=== PATIENT | male | born 1935 | race Caucasian/White ===

== ENCOUNTER 2016-09-30 15:58 | Emergency (ER) | payer OTHER ==
[2016-09-30 16:05] VITALS: TEMP 98.2
[2016-09-30] MEDS ORDERED: ONDANSETRON 4 MG/2 ML VIAL ONE (16:29)
[2016-09-30] MEDS ORDERED: HYDROmorphONE/DILAUDID 1 MG/ML SYR ONE (16:29)
--- NOTE | 2016-09-30 16:32 | EDPHY ---
HPI/HX/ROS/PE/MDM Narrative: CHIEF COMPLAINT: Right flank pain. HISTORY OF PRESENT ILLNESS: The patient is an 81-year-old male presenting with acute right flank pain. The patient woke up this morning with a dull back ache. He took a nap around 1:30 p.m. and continued to notice the pain. His pain has progressively worsened throughout the day. It is now severe and radiates from his right flank into his testicles. No fever, chills, chest pain, shortness of breath, palpitations, vomiting, diarrhea, urinary complaints, headache, or lightheadedness. REVIEW OF SYSTEMS: Aside from elements discussed in the HPI, a comprehensive 10-point review of systems was reviewed and is negative. PAST MEDICAL HISTORY: Hypertension, Hyperlipidemia, Bilateral endarterectomy, Left knee replacement. SOCIAL HISTORY: . Lives at home with his . VITAL SIGNS: Reviewed by me GENERAL: Elderly male that appears uncomfortable. HEENT: Atraumatic. Eyes: No icterus, no injection. Mouth: dry mucous membranes. No erythema or lesions. Neck: supple with no adenopathy. LUNGS: Lungs are clear anteriorly, no wheezes, rhonchi or rales. CARDIAC: Regular rate and rhythm, no rubs, murmurs or gallops. ABDOMEN: Tenderness right mid quadrant. Pain in right flank. BACK: No CVA tenderness. EXTREMITIES: No trauma. No edema. Range of motion is normal throughout. NEURO: Alert and oriented, grossly nonfocal. SKIN: Warm and dry, no rash. PSYCHIATRIC: Normal mentation, no agitation. Portions of this note were transcribed by a medical device engineer. I personally performed a history, physical exam, medical decision making, and confirmed accuracy of information the transcribed note. ED Course: The patient is an elderly male who appears uncomfortable. He developed right flank pain this morning that has progressively worsened throughout the day. His pain is now severe and radiates into his testicles. The patient is allergic to Ibuprofen, plan for IV Dilaudid and Zofran to treat pain and nausea. I ordered BMP, CBC, and UA. IV was established, the patient received 1mg Dilaudid IV, 4mg Zofran, and 2L normal saline. 5:30 p.m.: The patient's pain is getting worse, per nurse. I ordered an additional 1mg Dilaudid IV. 1744: CT abdomen/pelvis obtained. Results were called to me by the radiologist. Results: 2.7 mm kidney stone at level L5. Dense coronary artery calcifications. Please see the imaging section for full radiology report. I discussed findings with the patient. He continues to have pain. I ordered 10mg Flexeril and 0.4 Flomax. 1850: I reevaluated the patient, he is feeling slightly improved. We will continue to monitor him. 1950: The patient was able to urinate after 3L of fluids. UA is positive for infection. Plan to treat with Keflex. MDM: Differential diagnosis of the patient's flank pain was considered including but not limited to musculoskeletal causes, kidney stone, pyelonephritis, shingles, and intra-abdominal causes such as diverticulitis and appendicitis. - Data Points Laboratory Results: Laboratory Results 09/30/16 16:27 09/30/16 16:27 Medications Given: Discontinued Medications Cephalexin HCl (Keflex) 500 mg PO EDNOW ONE PRN Reason: Protocol Stop: 09/30/16 20:45 Last Admin: 09/30/16 20:55 Dose: 500 mg Cyclobenzaprine HCl (Flexeril) 10 mg PO EDNOW ONE Stop: 09/30/16 18:10 Last Admin: 09/30/16 18:26 Dose: 10 mg Hydromorphone HCl (Dilaudid) 1 mg IVP ONCE ONE Stop: 09/30/16 16:36 Last Admin: 09/30/16 16:36 Dose: 1 mg Hydromorphone HCl (Dilaudid) 1 mg IVP ONCE ONE Stop: 09/30/16 17:37 Last Admin: 09/30/16 17:36 Dose: 1 mg Sodium Chloride (Ns) 1,000 mls @ 0 mls/hr IV ONCE ONE PRN Reason: Wide Open Stop: 09/30/16 16:36 Last Admin: 09/30/16 16:36 Dose: 1,000 mls Sodium Chloride (Ns) 1,000 mls @ 0 mls/hr IV ONCE ONE PRN Reason: Wide Open Stop: 09/30/16 16:38 Last Admin: 09/30/16 17:15 Dose: 1,000 mls Sodium Chloride (Ns) 1,000 mls @ 0 mls/hr IV ONCE ONE PRN Reason: Wide Open Stop: 09/30/16 18:10 Last Admin: 09/30/16 18:22 Dose: 1,000 mls Ondansetron HCl (Zofran) 4 mg IVP EDNOW ONE Stop: 09/30/16 16:36 Last Admin: 09/30/16 16:36 Dose: 4 mg Tamsulosin HCl (Flomax) 0.4 mg PO EDNOW ONE Stop: 09/30/16 18:04 Last Admin: 09/30/16 18:26 Dose: 0.4 mg General Time Seen by Provider: 09/30/16 16:19 Initial Vital Signs: Initial Vital Signs Temperature (C) 36.8 C 09/30/16 16:03 Heart Rate 52 L 09/30/16 16:03 Respiratory Rate 18 09/30/16 16:03 Blood Pressure 171/69 H 09/30/16 16:03 O2 Sat (%) 94 09/30/16 16:03 O2 Delivery Mode Room Air O2 (L/minute) 3 Allergies/Adverse Reactions: ibuprofen Allergy (Mild, Verified 09/30/16 16:02) Other-Enter Comments Home Medications: Medication Instructions Recorded Finasteride [Proscar] 5 mg PO DAILY10 11/23/12 Gluc/Karl-MSM#1/C/Jigar/Cabrera/Bor 1 each PO DAILY 11/23/12 [Osteo Bi-Flex Caplet] Lisinopril/Hctz 10/12.5 mg 1 ea PO DAILY 11/24/12 [Zestoretic/Prinzide 10/12.5MG (RX)] Aspirin [Aspirin 81mg (OTC)] 81 mg PO DAILY 08/09/13 Atorvastatin Calcium [Lipitor 10 10 mg PO DAILY 08/09/13 mg (RX)] Metoprolol Tartrate [Lopressor] 25 mg PO DAILY 08/09/13 Ferrous Sulfate [Slow Fe 140 MG 140 mg PO DAILY 09/09/13 (OTC)] Cephalexin [Keflex (RX)] 500 mg PO TID 7 Days 09/30/16 Cephalexin [Keflex (RX)] 500 mg PO TID 7 Days 09/30/16 Ondansetron Odt [Zofran Odt 4 mg 4 mg PO Q6 PRN #10 tab 09/30/16 (RX)] Tamsulosin HCl [Flomax 0.4 MG (*)] 0.4 mg PO DAILY #7 cap 09/30/16 oxyCODONE/APAP 5/325 [Percocet 1 - 2 tab PO QID PRN #20 tab 09/30/16 5/325 (*)] Departure - Departure Disposition: Home, Routine, Self-Care Clinical Impression: Kidney stone on right side Condition: Good Instructions: Oxycodone/Acetaminophen (By mouth), Kidney Stones (ED), How to Strain Your Urine (ED) Additional Instructions: Take Percocet as needed for severe pain. Use Zofran as needed for nausea. Take ibuprofen 600 mg every 6-8 hours as needed for moderate pain. This will also help with inflammation. Take Flomax as directed. Followup with urology as directed below. Strain urine. Return to the emergency department if you have worsening pain, fevers, persistent vomiting, or other concerns. Take full course of Keflex as directed for your urinary tract infection. Referrals: Schuyler French MD [Medical Doctor] - As per Instructions (Urologist) Prescriptions: Cephalexin [Keflex (RX)] 500 mg PO TID 7 Days Cephalexin [Keflex (RX)] 500 mg PO TID 7 Days Ondansetron Odt [Zofran Odt 4 mg (RX)] 4 mg PO Q6 PRN #10 tab PRN Reason: Nausea oxyCODONE/APAP 5/325 [Percocet 5/325 (*)] 1 - 2 tab PO QID PRN #20 tab PRN Reason: Pain Tamsulosin HCl [Flomax 0.4 MG (*)] 0.4 mg PO DAILY #7 cap Report Scribed for: Antonella Steele Report Scribed by: Fernanda Bunn Date of Report: 09/30/16 Time of Report: 16:33
[2016-09-30] MEDS ORDERED: HYDROmorphONE/DILAUDID 1 MG/ML SYR IVP ONE ×2 (16:35→17:36)
[2016-09-30] MEDS ORDERED: NS 1,000 ML IV ONE ×3 (16:35→18:09)
[2016-09-30] MEDS ORDERED: ONDANSETRON 4 MG/2 ML VIAL IVP ONE (16:35)
[2016-09-30 16:46] LABS: % IMMATURE GRANULYOCYTES 0.6 % (0.0-1.1); ABSOLUTE IMMATURE GRANULOCYTES 0.06 10^3/uL (0.00-0.10); ADD DIFF? NO; ADD MORPH? NO; ADD SCAN? NO; ATYPICAL LYMPHOCYTE FLAG 0 (0-99); FRAGMENT RBC FLAG 0 (0-99); HEMATOCRIT 38.7 % (40.0-51.0); HEMOGLOBIN 13.2 g/dL (13.7-17.5); LEFT SHIFT FLG 0 (0-99); LIPEMIA HEMOLYSIS FLAG 90 (0-99); MEAN CELL HEMOGLOBIN 31.9 pg (27.9-34.1); MEAN CELL HEMOGLOBIN CONCENTR. 34.1 g/dL (32.4-36.7); MEAN CELL VOLUME 93.5 fL (81.5-99.8); MEAN PLATELET VOLUME 8.9 fL (8.7-11.7); PLATELET CLUMPS FLAG 0 (0-99); PLATELET COUNT 229 10^3/uL (150-400); RED BLOOD CELL COUNT 4.14 10^6/uL (4.40-6.38); RED CELL DISTRIBUTION WIDTH 11.8 % (11.5-15.2)
[2016-09-30 16:55] LABS: ANION GAP 13 mEq/L (8-16); CALCIUM 9.7 mg/dL (8.5-10.4); CARBON DIOXIDE 22 mEq/l (22-31); CHLORIDE 101 mEq/L (97-110); CREATININE 1.5 mg/dL (0.7-1.3); GLOMERULAR FILTRATION RATE 45; GLUCOSE 134 mg/dL (70-100); POTASSIUM 4.5 mEq/L (3.5-5.2); SODIUM 136 mEq/L (134-144)
[2016-09-30] MEDS ORDERED: TAMSULOSIN HCL 0.4 MG CAP PO ONE (18:03)
[2016-09-30] MEDS ORDERED: CYCLOBENZAPRINE 10 MG TAB PO ONE (18:09)
[2016-09-30 20:28] LABS: COLOR YELLOW; LEUKOCYTE ESTERASE,URINE 1+ (NEGATIVE); NITRITE,URINE NEGATIVE (NEGATIVE)
[2016-09-30 20:36] LABS: BACTERIA TRACE /hpf (NONE SEEN); MUCUS TRACE /lpf (NONE-1+); RBC,URINE 50-182 /hpf (0-3)
[2016-09-30] MEDS ORDERED: CEPHALEXIN 500 MG CAP PO ONE (20:44)
[2016-09-30 20:55] VITALS: BP 145/56; PULSE 69; RESP 18; O2SAT 97
--- NOTE | 2016-10-01 03:38 | CPEKG ---
Heart Rate: 46 RR Interval: 1304 P-R Interval: 180 QRSD Interval: 144 QT Interval: 536 QTC Interval: 469 QRS [place]: -6 T Wave [place]: -2 EKG Severity - ABNORMAL ECG - EKG Impression: SINUS BRADYCARDIA EKG Impression: RIGHT BUNDLE BRANCH BLOCK Electronically Signed By: Amrik Byrne 02-Oct-2016 00:57:38
== END 2016-09-30 21:01 | disposition home or self-care (01) ==
DX: N20.0 Calculus of kidney (principal); I10 Essential (primary) hypertension; Z79.82 Long term (current) use of aspirin
CPT/HCPCS: 74176; 93005; 96361; 96374; 96375; 96376; 99285; J1170; J2405

== ENCOUNTER → 2016-10-07 | Outpatient (CLI) | payer OTHER | LOC: BMCIMAGING 14:50 | PROVIDERS: ATTEND Internal Medicine | DX: S82.52XA Displaced fracture of medial malleolus of left tibia, initial encounter for closed fracture (principal) ==

== ENCOUNTER 2016-11-19 10:16 | Inpatient (IN) | payer OTHER ==
[2016-11-14 15:54] LABS: % IMMATURE GRANULYOCYTES 0.3 % (0.0-1.1); ABSOLUTE IMMATURE GRANULOCYTES 0.02 10^3/uL (0.00-0.10); ADD DIFF? NO; ADD MORPH? NO; ADD SCAN? NO; ATYPICAL LYMPHOCYTE FLAG 0 (0-99); FRAGMENT RBC FLAG 0 (0-99); HEMATOCRIT 39.9 % (40.0-51.0); HEMOGLOBIN 13.3 g/dL (13.7-17.5); LEFT SHIFT FLG 0 (0-99); LIPEMIA HEMOLYSIS FLAG 80 (0-99); MEAN CELL HEMOGLOBIN 32.3 pg (27.9-34.1); MEAN CELL HEMOGLOBIN CONCENTR. 33.3 g/dL (32.4-36.7); MEAN CELL VOLUME 96.8 fL (81.5-99.8); MEAN PLATELET VOLUME 9.1 fL (8.7-11.7); PLATELET CLUMPS FLAG 0 (0-99); PLATELET COUNT 142 10^3/uL (150-400); RED BLOOD CELL COUNT 4.12 10^6/uL (4.40-6.38); RED CELL DISTRIBUTION WIDTH 12.2 % (11.5-15.2)
--- NOTE | 2016-11-17 10:54 | GHP ---
[f rep st] PREOP HISTORY AND PHYSICAL DATE OF ADMISSION: 11/19/2016 PROBLEM: Severe right knee degenerative arthritis. HISTORY OF PRESENT ILLNESS: This patient is an 81-year-old male who will be admitted for a right total knee arthroplasty with Dr. Brumfield at the [facility] on November 19, 2016. The patient has had progressive and worsening left knee pain over the past several years. His left knee was also very severely arthritic, for which he underwent a left total knee arthroplasty 3 years ago with a good result. Over the past 1-2 years, he has noticed pain when walking down stairs. He is unable to take ibuprofen because of renal issues. Tylenol has stopped being very effective. His activities have become severely limited. Because of his progressive pain and advanced arthritis, he has elected to proceed with a right total knee arthroplasty. PAST MEDICAL/SURGICAL HISTORY: Treated hypertension, hypercholesterolemia, bilateral carotid endarterectomies, prostate cancer treated by cryotherapy. No history of CAD, stents, PE or DVT. CURRENT MEDICATIONS: Amlodipine 2.5 mg, atorvastatin 10 mg, finasteride 5 mg, flurbiprofen 50 mg, gabapentin 600 mg, metoprolol tartrate 25 mg, prochlorperazine maleate 5 mg, aspirin 81 mg. ALLERGIES: He has no known drug allergies. SOCIAL HISTORY: The patient is . He is a former smoker and smoked 1 pack per week for several years. He is a retired [employer] professor. Moderate alcohol intake. FAMILY HISTORY: Pertinent for arthritis and coronary artery disease. PHYSICAL EXAMINATION: GENERAL: He is a healthy-appearing 81-year-old male. VITAL SIGNS: Height 6 feet, 0 inches tall, weight 208 pounds, BMI 28.2. HEENT : Head is normocephalic, atraumatic. Eyes are PERRLA. Conjunctivae and sclerae are clear. Mouth: He has good oral hygiene without any loose teeth. LUNGS: Clear. HEART: Regular rate and rhythm, with a soft grade 2/6 systolic murmur heard best at the right upper sternal border. No gallops or rubs. EXTREMITIES: Pertinent findings are limited to the patient's right knee. He has full knee extension and 120 degrees of flexion. There is moderate swelling in the bilateral lower extremities with associated stasis dermatitis. The knee is stable to exam. DIAGNOSTIC IMAGING: Recent x-rays taken of the patient's right knee show advanced medial compartment degenerative arthritis with [id number] findings. There is also varus alignment and mild patellofemoral compartment degenerative changes. IMPRESSION ON ADMISSION: 1. Severe right knee degenerative arthritis. 2. Stasis dermatitis. 3. Treated hypercholesterolemia. 5. History of prostate cancer. 6. Status post bilateral carotid endarterectomies. 7. History of left total knee arthroplasty with a good result. PLAN: The plan will be for the patient to undergo a right total knee arthroplasty with Dr. Brumfield at the [facility] on November 19, 2016. The surgery has been described to the patient, including the risks, benefits and expectations. He understands the importance of postoperative physical therapy. He understands the risk of nerve injury, blood vessel injury, infection, or revision surgery. All his questions were answered. /[id number]/MODL MTDD
[~2016-11-19 10:16] MED LIST: ACETAMINOPHEN 325 MG TAB PO ONE; CEFAZOLIN 2 GM/DEXTR 100 ML IV ONE; CHLORHEXIDINE GLUC HIBICLENS 118 ML BTL TP ONE; DEXAMETHASONE 4 MG/ML VIAL IVP ONE; FAMOTIDINE 20 MG TAB PO ONE; TRANEXAMIC ACID 890 MG in NS 100 ML IV ONE; VANCOMYCIN 1 GM VIAL ONE; ceFAZolin 1 GM/5 ML SYR ONE
[2016-11-19] MEDS ORDERED: LR 1,000 ML IV ONE ×2 (10:35→10:46)
[2016-11-19] MEDS ORDERED: ROPIVACAINE 0.2% 80 MG, EPINEPHrine 0.2 MG in BAG 0 ML IU ONE (11:00)
[2016-11-19] MEDS ORDERED: DEXAMETHASONE 4 MG/ML VIAL ONE (11:02)
[2016-11-19] MEDS ORDERED: ACETAMINOPHEN 325 MG TAB ONE ×2 (11:02→18:25)
[2016-11-19] MEDS ORDERED: FAMOTIDINE 20 MG TAB ONE (11:02)
[2016-11-19] MEDS ORDERED: CEFAZOLIN 2 GM/DEXTROSE/100 ML BAG IV ONE (11:03)
[2016-11-19] MEDS ORDERED: fentaNYL 100 MCG/2 ML INJ ONE ×4 (11:08→17:13)
[2016-11-19] MEDS ORDERED: PROPOFOL/EMULSION 500 MG/50 ML BOTTLE IV ONE (11:09)
[2016-11-19] MEDS ORDERED: MIDAZOLAM 2 MG/2 ML VIAL ONE (11:44)
[2016-11-19] MEDS ORDERED: POVIDONE-IODINE 20 ML in SODIUM CL IRRIG SOLUTION 500 ML IRR ONE (12:30)
[2016-11-19] MEDS ORDERED: FLUMAZENIL 0.5 MG/5 ML MDV IVP ONE (12:52)
[2016-11-19] MEDS ORDERED: PROPOFOL 200 MG/20 ML VIAL ONE ×2 (12:58)
[2016-11-19] MEDS ORDERED: morphINE *ANESTHESIA ONLY* 10 MG/ML VIAL ONE (13:08)
[2016-11-19] MEDS ORDERED: ONDANSETRON 4 MG/2 ML VIAL ONE (13:45)
[2016-11-19] MEDS ORDERED: ROPIVACAINE HCL 150 MG/30 ML INJ ONE (13:50)
--- NOTE | 2016-11-19 14:08 | POSTOPPROG ---
Post Op Note Date of Operation: 11/19/16 Surgeon: Marco Brumfield Furnace Roaster: Jesusita Anesthesiologist: Rashaun Anesthesia: GET(General Endotracheal) Post-op Diagnosis: R knee arthritis Procedure: R TKA Inf/Abcess present in the surg proc area at time of surgery?: No EBL: 50-100 (add canal block)
[2016-11-19] MEDS ORDERED: PROMETHAZINE HCL 25 MG/ML INJ IVP PRN (14:25)
[2016-11-19] MEDS ORDERED: traMADol 50 MG TAB PO PRN (14:25)
[2016-11-19] MEDS ORDERED: LACTULOSE 20 GM/30 ML UDCUP PO PRN (14:25)
[2016-11-19] MEDS ORDERED: PROMETHAZINE HCL 25 MG SUPPR PR PRN (14:25)
[2016-11-19] MEDS ORDERED: DIPHENOXYLATE/ATROPINE LOMOTIL 1 TAB PO PRN (14:25)
[2016-11-19] MEDS ORDERED: METOCLOPRAMIDE 10 MG/2 ML VIAL IVP PRN (14:25)
[2016-11-19] MEDS ORDERED: NS 500 ML IV PRN (14:25)
[2016-11-19] MEDS ORDERED: CYCLOBENZAPRINE 10 MG TAB PO PRN (14:25)
[2016-11-19] MEDS ORDERED: POLYETHYLENE GLYCOL 3350 17 GM PKT PO PRN (14:25)
[2016-11-19] MEDS ORDERED: BISACODYL 10 MG SUPP PR PRN (14:25)
[2016-11-19] MEDS ORDERED: MAGNESIUM HYDROXIDE 30 ML UDCUP PO PRN (14:25)
[2016-11-19] MEDS ORDERED: diphenhydrAMINE 25 MG CAP PO PRN (14:25)
[2016-11-19] MEDS ORDERED: ONDANSETRON 4 MG/2 ML VIAL IVP PRN (14:25)
[2016-11-19] MEDS ORDERED: ONDANSETRON DISINTEGRATING 4 MG TAB PO PRN (14:25)
[2016-11-19] MEDS ORDERED: TEMAZEPAM 15 MG CAP PO PRN (14:25)
[2016-11-19] MEDS ORDERED: PHARMACY PAIN CONSULT 1 EA MISC PRN (14:25)
--- NOTE | 2016-11-19 14:45 | GOP ---
[f rep st] OPERATIVE REPORT DATE OF OPERATION: 11/19/2016 SURGEON: Marco Brumfield MD HEAVY CLEANER: Forest Blanco PA-C and Maury Park CFA. ANESTHESIA: General anesthesia. ANESTHESIOLOGIST: By Dr. Briana Rodney. PREOPERATIVE DIAGNOSIS: Right knee degenerative arthritis with varus deformity. POSTOPERATIVE DIAGNOSIS: Right knee degenerative arthritis with varus deformity. PROCEDURE PERFORMED: Performed a right total knee arthroplasty, cemented, Agosto and Nephew Journey II, posterior stabilized. FINDINGS: DESCRIPTION OF PROCEDURE: The patient was given 2 g of IV Ancef preoperatively within 60 minutes of surgery. He also received IV tranexamic acid at a dose of 10 mg/kg. He was placed on the operatin g room table, and Dr. Rodney attempted spinal anesthesia but was unsuccessful. The patient was plac ed supine and given general anesthesia. A Edmondson catheter was not used. At the patient's request, I did not use NETTA stockings. He did wear SCDs on the nonoperative leg. His right lower extremity wa s prepped with ChloraPrep from the upper thigh tourniquet to the tips of the toes. It was draped fr ee using sterile sheets, stockinette, and Ioban plastic adhesive drape. The lower leg was wrapped w ith compressive Coban. The leg was exsanguinated with elevation and a 6-inch compressive wrap, and pneumatic tourniquet was inflated to 250 mmHg. The World Health Organization time-out was performed to verify the correct patient identity and the correct surgical side and site. The Bighorn time-out was also performed. The Sparkflyayo leg holding device was sterilely attached to the operating room table and used throughout the procedure to help position the knee. A straight midline incision was made centered on the tenorio lla. Subcutaneous tissues were sharply divided, and hemostasis was obtained using electrocautery. A medial subcutaneous flap was developed, and the capsule and synovium were opened in a medial parap atellar fashion. Extensive degenerative changes were present in his medial compartment. The medial capsule and periosteum were elevated off the rim of the medial tibial plateau, all the way around t o the posteromedial corner. His medial collateral ligament was released enough to balance the media l side of the knee and correct the mild varus deformity. In order to improve the exposure, the patella was prepared first. The original thickness of the pat trang was measured. Peripheral osteophytes were removed. I cut a flat surface on the back of the pa charly. It was sized for a 41 mm resurfacing component. I removed enough bone from the patella such that the remaining bone, plus the thickness of the patellar component recreated the original thickn ess of the patella. The composite thickness was 22 mm. The intramedullary alignment guide system was used to set up the distal femoral cut. The distal fem ur was cut in 5 degrees of valgus. I made a +2 mm cut on the distal femur. The sizing jig was used to determine proper femoral sizing. I shifted the size 7 jig anteriorly 1 mm in order to accommoda te the size 7 without notching the anterior cortex. The 5-in-1 cutting block was applied, and the a nterior and posterior condylar cuts and chamfer cuts were made. The final jig was used to remove th e central portion of the distal femur to accommodate the posterior stabilized femoral component. I was careful to determine proper rotation by referencing off Whitesides line. Each cut was checked f or accuracy before and after it was made. The femur was sized for a size 7 posterior stabilized com ponent. The tibia was prepared next. The proximal tibial cut was made using the extramedullary alignment gu jeremy system. The cut was made in a few degrees of posterior slope. I was careful to achieve proper varus valgus alignment and proper rotation. The posterior compartment was cleared of meniscal remna nts. Osteophytes were removed from the back of the femoral condyles. I checked the flexion and ext ension gaps, and they were equal, balanced and rectangular. The tibia was sized for a size 6 component. With the trial components in place, I selected a 12 mm polyethylene posterior stabilized tibial insert. The knee came to full extension and flexed to 125 degrees. There was no overstuffing in flexion. His collateral ligaments were stable and balanced i n 90 degrees of flexion and full extension. The trial patellar button was applied, and patellar tra cking was checked. Tracking was excellent without any digital pressure. 40 mL of the joint anesthetic cocktail were injected into the posterior capsule, the periarticular s tructures, the quadriceps muscle and tendon areas, and the subcutaneous tissues along the skin edges . A second dose of IV tranexamic acid was given at a dose of 10 mg/kg. The surfaces were prepared for cementing. They were carefully cleaned with the pulsating lavage and thoroughly dried. The CarboJet device was used to blow dry the cancellous surfaces. A double batc h of high viscosity methylmethacrylate cement with 2 g of powdered vancomycin added was mixed. Whil e it was still in a semiliquid state, all [address] components were cement[address] in place. Excess cement was re moved before it hardened. The 12 mm trial tibial insert was re-tried and was the proper thickness. The actual component was i nserted and locked into place. The knee was thoroughly irrigated 1 final time with a dilute Betadin e solution. The tourniquet was deflated. Total tourniquet time was 53 minutes. The vastus medialis portion of the extensor mechanism was repaired with several interrupted figure-o f-eight #2 FiberWire sutures. The capsule and synovium were closed first with multiple interrupted [id number] 0 PDS sutures, followed by a running #2 barbed Ethicon type StrataFix PDO suture. T he subcutaneous tissues were closed with a running 0 barbed Ethicon StrataFix Monoderm suture. The skin was closed with a running 3-0 barbed Ethicon StrataFix Monoderm subcuticular suture. The skin was sealed with 1/2-inch Steri-Strips. The wound was covered with Xeroform gauze and flat 4 x 4's, and the knee was wrapped with a Kerlix and 6-inch compressive wrap. A long-leg NETTA stocking and SCD were applied followed by the cooling device. The patient wore a stocking and SCD on the opposite l eg during the procedure. I used a size 7 cemented Agosto and Nephew Oxinium posterior stabilized femoral component, a size 6 c emented tibial base plate, a 12 mm posterior stabilized tibial insert and a 41 mm cemented round all -polyethylene resurfacing patellar component. The estimated blood loss following inflation of the tourniquet was about 100 cc. The sponge and needle count were correct on 2 occasions. The patient was awakened from anesthesia, transferred to his [facility] and taken to PACU in sa tisfactory condition. There were no recognized intraoperative complications. In the PACU, for additional postoperative pain control, Dr. Rodney performed an adductor canal block . John Blanco and Maury Park acted as surgical assistants. Their assistance was a medical otis bowers. Copy requested to: Vlad Martinez MD /[id number]/MODL
[2016-11-19] MEDS ORDERED: oxyCODONE IR 5 MG TAB ONE (18:24)
[2016-11-19] MEDS ORDERED: GABAPENTIN 300 MG CAP ONE (18:27)
[2016-11-19] MEDS: LR 1,000 ML IV SCH (18:30)
[2016-11-19] MEDS: oxyCODONE IR 5 MG TAB PO PRN ×2 (18:40→21:34)
[2016-11-19] MEDS: ACETAMINOPHEN 325 MG TAB PO SCH (18:40)
[2016-11-19] MEDS: ceFAZolin 2 GM/DEXTROSE 100 ML IV SCH (19:57)
[2016-11-19] MEDS: GABAPENTIN 300 MG CAP PO SCH ×2 (19:58→21:36)
[2016-11-19] MEDS ORDERED: ATORVASTATIN CALCIUM 10 MG TAB PO SCH (21:00)
[2016-11-19] MEDS: ASPIRIN 325 MG TAB PO SCH (21:31)
[2016-11-19] MEDS: FAMOTIDINE 20 MG TAB PO SCH (21:33)
[2016-11-19] MEDS: METOPROLOL TARTRATE 25 MG TAB PO SCH (21:34)
[2016-11-19] MEDS: SENNOSIDES/DOCUSATE SODIUM TAB PO SCH (21:35)
[2016-11-20] MEDS: oxyCODONE IR 5 MG TAB PO PRN ×3 (00:04→09:46)
[2016-11-20] MEDS: LR 1,000 ML IV SCH (04:02)
[2016-11-20] MEDS: ceFAZolin 2 GM/DEXTROSE 100 ML IV SCH (04:03)
[2016-11-20] MEDS: ACETAMINOPHEN 325 MG TAB PO SCH ×2 (05:32)
[2016-11-20 05:55] LABS: HEMATOCRIT 37.8 % (40.0-51.0); HEMOGLOBIN 12.4 g/dL (13.7-17.5)
--- NOTE | 2016-11-20 07:35 | SOAPPROG ---
SOAP Progress Note Assessment/Plan: Assessment: Afebrile. Awake and alert. Was disoriented during the night. Dsg dry. Mild swelling. H/H is good. Films look good. Has been walking in room. Plan: Up with PT. CHEVY later today. Home PT. 11/20/16 07:34 Objective: Vital Signs Temp Pulse Resp BP Pulse Ox 36.7 C 64 19 149/70 H 96 11/20/16 04:00 11/20/16 04:00 11/20/16 04:00 11/20/16 04:00 11/20/16 04:00 Laboratory Results 11/20/16 05:28 11/19/16 11/20/16 11/21/16 05:59 05:59 05:59 Intake Total 3750 Output Total 1090 Balance 2660 ICD10 Worksheet Patient Problems: Problems Problem Status Onset Osteoarthritis of right knee Acute Chest pain Acute Primary osteoarthritis of left knee Acute
--- NOTE | 2016-11-20 07:36 | PDIAF ---
- Diagnosis Diagnosis: right knee OA Code Status: Full Code - Medication Management Discharge Medications: Medications to Continue on Transfer Finasteride [Proscar 5 MG (*)] 5 mg PO DAILY10 11/23/12 [Last Taken 11/19/16] Atorvastatin Calcium [Lipitor 10 mg (*)] 10 mg PO HS 08/09/13 [Last Taken ] Metoprolol Tartrate [Lopressor 25 mg (*)] 25 mg PO BID 08/09/13 [Last Taken ] Cholecalciferol Vit D3 [Vitamin D3 2000 units tab (OTC)] 2,000 units PO DAILY [Last Taken 11/14/16] Flurbiprofen 50 mg PO DAILY 11/14/16 [Last Taken 11/14/16] Gabapentin [Neurontin] 600 mg PO TID 11/14/16 [Last Taken 11/19/16] amLODIPine BESYLATE [Norvasc 2.5 mg (*)] 2.5 mg PO DAILY 11/14/16 [Last Taken ] Acetaminophen [Tylenol 325mg (*)] 650 mg PO Q6HRS #0 tab 11/20/16 [Last Taken Unknown] Aspirin [Aspirin 325 mg (*)] 325 mg PO DAILY #21 tab 11/20/16 [Last Taken Unknown] Ferrous Sulfate [Slow Fe 140 MG (*)] 140 mg PO DAILY #30 tab.er 11/20/16 [Last Taken Unknown] Ondansetron Odt [Zofran Odt 4 mg (*)] 4 mg PO Q4HRS PRN #0 tab 11/20/16 [Last Taken Unknown] oxyCODONE IR [Oxycodone Ir (*)] 5 - 10 mg PO Q3HRS PRN #0 tab 11/20/16 [Last Taken Unknown] traMADol [Ultram 50 mg (*)] 50 mg PO Q6HRS PRN #0 tab 11/20/16 [Last Taken Unknown] Discharge Medications: Refer to the Discharge Home Medication list for PRN reason. PICC Care - Routine: N/A - Orders Services needed: Home Care, Physical Therapy Home Care Face to Face: I certify that this patient was under my care and that I had the required alcg-ym-bpar encounter meeting the encounter requirements on the discharge day. My findings support the fact that the patient is homebound as defined in CMS Chapter 7 Medicare Benefits Manual 30.1.1, The condition of the patient is such that there exists a normal inability to leave home and consequently, leaving home would require a considerable and taxing effort. Diet Recommendation: no restrictions on diet Diet Texture: Regular Texture Diet Edmondson: Not applicable Netta Stockings Discontinue Date: Patient declines NETTA stockings. Wound Care Instructions: keep clean and dry. You may shower. Activity/Weight Bearing Restrictions: as tolerated. Additional: Zero Knee device while in bed as tolerated x 3 weeks. - Follow Up Care Current Providers and Referrals: Vlad Martinez MD [Primary Care Provider] - Marco Brumfield MD [Medical Doctor] - 12/01/16 9:00 am
--- NOTE | 2016-11-20 08:13 | GDS ---
[f rep st] DISCHARGE SUMMARY ADMISSION DIAGNOSIS: Right knee degenerative arthritis. DISCHARGE DIAGNOSIS: Right knee degenerative arthritis. OPERATION PERFORMED: 11/19/2016, a right total knee arthroplasty. POSTOPERATIVE COMPLICATIONS: None. CONDITION ON DISCHARGE: Improved. DESCRIPTION OF HOSPITAL COURSE: The patient was admitted to the hospital on the morning of surgery. His admission hemoglobin and hematocrit were 13.3 and 39.3. Platelet count 142,000. Electrolytes were normal. BUN 23, creatinine 1.5. The same day, under general anesthesia, he underwent a right total knee arthroplasty. Postoperatively, he was treated with multimodal DVT prophylaxis, includin g aspirin and early mobilization. On the first postoperative day, his hemoglobin and hematocrit wer e 12.4 and 37.8. He was seen by Physical Therapy and made good progress with ambulation and stairs. By the time of discharge, he was afebrile and was independent walking. DISPOSITION: Patient is discharged to his home. He will have home physical therapy. He may progre ss to full weightbearing on the right as tolerated. He has prescriptions for oxycodone and tramadol for pain control. Continue aspirin 325 mg p.o. daily for 21 days. At his request, he does not hav e to wear the NETTA stockings. I will see him back in the office on 12/01/2016. If there are any pro blems, he is to call me at the office. Copy requested to: Dr. Vlad Pelayo #: [id number]
[2016-11-20] MEDS: ASPIRIN 325 MG TAB PO SCH (08:28)
[2016-11-20] MEDS: GABAPENTIN 300 MG CAP PO SCH (08:28)
[2016-11-20] MEDS: SENNOSIDES/DOCUSATE SODIUM TAB PO SCH (08:30)
[2016-11-20] MEDS: FAMOTIDINE 20 MG TAB PO SCH (08:31)
[2016-11-20] MEDS: METOPROLOL TARTRATE 25 MG TAB PO SCH (08:31)
[2016-11-20] MEDS ORDERED: FERROUS SULFATE 140 MG TAB.ER PO SCH (09:00)
[2016-11-20] MEDS ORDERED: CHOLECALCIFEROL VIT D3 2,000 UNITS TAB/CAP PO SCH (09:00)
[2016-11-20 09:28] VITALS: BP 116/61; RESP 13; TEMP 97.5
[2016-11-20] MEDS ORDERED: FINASTERIDE 5 MG TAB PO SCH (10:00)
[2016-11-20 13:34] VITALS: PULSE 56; O2SAT 86
== END 2016-11-20 11:51 | disposition home health service (06) | DRG 470 ==
LOC: F3E 10:16 → F3N 18:08
PROVIDERS: ADMIT Orthopaedic Surgery; ATTEND Orthopaedic Surgery
PROC: 0SRC0J9 Replacement of Right Knee Joint with Synthetic Substitute, Cemented, Open Approach (ICD-10-PCS; principal; 2016-11-19 11:45)
DX: M17.11 Unilateral primary osteoarthritis, right knee (principal); Z96.652 Presence of left artificial knee joint; I10 Essential (primary) hypertension; E78.00 Pure hypercholesterolemia, unspecified; Z85.46 Personal history of malignant neoplasm of prostate; L30.9 Dermatitis, unspecified
CPT/HCPCS: 97110-GP; 97161-GP; 97165-GO; C1713; G8978-GP-CI; G8979-GP-CI; G8980-GP-CI; G8987-GO-CI; G8988-GO-CI; G8989-GO-CI; J0171; J0690; J1100; J2250; J2405; J2704; J2795; J3010; J3370

== ENCOUNTER 2016-11-20 18:55 | Emergency (ER) | payer OTHER ==
[2016-11-20 19:03] VITALS: TEMP 98.4; O2SAT 93
[2016-11-20] MEDS ORDERED: HYDROmorphONE/DILAUDID 1 MG/ML SYR IM ONE (19:50)
[2016-11-20] MEDS ORDERED: ACETAMINOPHEN 500 MG TAB PO ONE (19:51)
--- NOTE | 2016-11-20 19:54 | EDPHY ---
H & P Stated Complaint: R knee pain, swelling, hot to touch. D?C at 1pm today Time Seen by Provider: 11/20/16 19:34 HPI/ROS: CHIEF COMPLAINT: Right knee pain HISTORY OF PRESENT ILLNESS: The patient is an 81-year-old man who comes to the emergency department complaining of right knee pain and concern for infection. He had his right knee replaced with Dr. Marco Brumfield yesterday. He was discharged from the hospital 1 o'clock this afternoon. He states that when he went home his pain was completely controlled. He states that now it is very painful even to touch. His is concerned that was infected. It is not erythematous. It is not warm. Wound is intact. He has not had a fever or chills. He does have chronic lower extremity edema and peripheral neuropathy at baseline. REVIEW OF SYSTEMS: Constitutional: denies: chills, fever, recent illness, recent injury EENTM: denies: blurred vision, double vision, nose congestion Respiratory: denies: cough, shortness of breath Cardiac: denies: chest pain, irregular heart rate, lightheadedness, palpitations Gastrointestinal/Abdominal: denies: abdominal pain, diarrhea, nausea, vomiting, blood streaked stools Genitourinary: denies: dysuria, frequency, hematuria, pain Musculoskeletal: See HPI Skin: denies: lesions, rash, jaundice, bruising Neurological: denies: headache, numbness, paresthesia, tingling, dizziness, weakness Hematologic/Lymphatic: denies: blood clots, easy bleeding, easy bruising Immunologic/allergic: denies: HIV/AIDS, transplant EXAM: GENERAL: Well-appearing, well-nourished and in no acute distress. HEAD: Atraumatic, normocephalic. EYES: Pupils equal round and reactive to light, extraocular movements intact, sclera anicteric, conjunctiva are normal. ENT: TMs normal, nares patent, oropharynx clear without exudates. Moist mucous membranes. NECK: Normal range of motion, supple without lymphadenopathy or JVD. LUNGS: Breath sounds clear to auscultation bilaterally and equal. No wheezes rales or rhonchi. HEART: Regular rate and rhythm without murmurs, rubs or gallops. ABDOMEN: Soft, nontender, normoactive bowel sounds. No guarding, no rebound. No masses appreciated. BACK: No CVA tenderness, no spinal tenderness, step-offs or deformities EXTREMITIES: Right knee with moderate swelling, incision intact, no erythema, tenderness to palpation of the skin. NEUROLOGICAL: Cranial nerves II through XII grossly intact. Normal speech, decreased sensation in both lower extremities due to peripheral neuropathy PSYCH: Normal mood, normal affect. SKIN: Warm, dry, normal turgor, no visible rashes or lesions. Source: Patient Exam Limitations: No limitations - Personal History Current Tetanus/Diphtheria Vaccine: Yes Current Tetanus Diphtheria and Acellular Pertussis (TDAP): Yes Tetanus Vaccine Date: 06/12/15 - Medical/Surgical History Hx Asthma: No Hx Chronic Respiratory Disease: No Hx Diabetes: No Hx Cardiac Disease: Yes Hx Renal Disease: Yes Hx Cirrhosis: No Hx Alcoholism: No Hx HIV/AIDS: No Hx Splenectomy or Spleen Trauma: No Other PMH: HTN, Hyperlipidemia. 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 right total knee replacement 2016 - Family History Significant Family History: No pertinent family hx - Social History Smoking Status: Former smoker Alcohol Use: Sober Drug Use: None Constitutional: Initial Vital Signs Temperature (C) 36.9 C 11/20/16 18:59 Heart Rate 82 11/20/16 18:59 Respiratory Rate 16 11/20/16 18:59 Blood Pressure 175/87 H 11/20/16 18:59 O2 Sat (%) 93 11/20/16 18:59 O2 Delivery Mode Room Air Allergies/Adverse Reactions: ibuprofen Allergy (Severe, Verified 11/14/16 13:55) Unknown Home Medications: Medication Instructions Recorded Finasteride [Proscar 5 MG (*)] 5 mg PO DAILY10 11/23/12 Atorvastatin Calcium [Lipitor 10 10 mg PO HS 08/09/13 mg (*)] Metoprolol Tartrate [Lopressor 25 25 mg PO BID 08/09/13 mg (*)] Cholecalciferol Vit D3 [Vitamin D3 2,000 units PO DAILY 11/14/16 2000 units tab (OTC)] Flurbiprofen 50 mg PO DAILY 11/14/16 Gabapentin [Neurontin] 600 mg PO TID 11/14/16 amLODIPine BESYLATE [Norvasc 2.5 2.5 mg PO DAILY 11/14/16 mg (*)] Acetaminophen [Tylenol 325mg (*)] 650 mg PO Q6HRS #0 tab 11/20/16 Aspirin [Aspirin 325 mg (*)] 325 mg PO DAILY #21 tab 11/20/16 Ferrous Sulfate [Slow Fe 140 MG 140 mg PO DAILY #30 tab.er 11/20/16 (*)] Ondansetron Odt [Zofran Odt 4 mg 4 mg PO Q4HRS PRN #0 tab 11/20/16 (*)] oxyCODONE IR [Oxycodone Ir (*)] 5 - 10 mg PO Q3HRS PRN #0 tab 11/20/16 traMADol [Ultram 50 mg (*)] 50 mg PO Q6HRS PRN #0 tab 11/20/16 Medical Decision Making ED Course/Re-evaluation: The patient is here primarily for pain control. They are also concerned for infection however it is very early in the course for infection and the wound looks great. He does have significant pain and tenderness even to the skin. I suspect this is because he is under dosing is pain medication. He did take 10 mg of oxycodone at 6:00 p.m. this evening but had not taken any since around noon. Also he has not taken his Tylenol or tramadol prescription. We discussed these recommendations. I will give him a dose of IM Dilaudid here as well as the Tylenol. He and his are agreeable with this plan. I have paged Dr. Brumfield to confirm. I spoke with Dr. Knowles who agrees with this plan. He states that his pain is likely due to the nerve block wearing off and that this happens frequently. He will make Dr. Brumfield aware. He suggests the patient take the pain medication as prescribed. Differential Diagnosis: Partial list of the Differential diagnosis considered include but were not limited to; knee pain, wound dehiscence, infection and although unlikely based on the history and physical exam, I also considered foreign body, fracture. I discussed these differential diagnoses and the plan with the patient as well as the usual and expected course. The patient understands that the diagnosis is provisional and that in medicine we are not always correct and that further workup is often warranted. Usual and customary warnings were given. All of the patient's questions were answered. The patient was instructed to return to the emergency department should the symptoms at all worsen or return, otherwise to followup with the physician as we discussed. - Data Points Medications Given: Discontinued Medications Acetaminophen (Tylenol) 1,000 mg PO EDNOW ONE Stop: 11/20/16 19:52 Last Admin: 11/20/16 20:02 Dose: 1,000 mg Hydromorphone HCl (Dilaudid) 2 mg IM EDNOW ONE Stop: 11/20/16 19:51 Last Admin: 11/20/16 20:02 Dose: 2 mg Departure - Departure Disposition: Home, Routine, Self-Care Clinical Impression: Knee pain, acute Qualifiers: Laterality: right Qualified Code(s): M25.561 - Pain in right knee Condition: Fair Instructions: Knee Pain (ED) Additional Instructions: Keep taking the oxycodone as prescribed every 3-4 hours. Also take Tylenol as prescribed every 6 hours as prescribed. Also take tramadol every 6 hours as prescribed. Referrals: Vlad Martinez MD [Primary Care Provider] - As per Instructions
[2016-11-20 21:07] VITALS: BP 125/59; PULSE 79; RESP 18
== END 2016-11-20 21:07 | disposition home or self-care (01) ==
DX: G89.18 Other acute postprocedural pain (principal); M25.561 Pain in right knee; I10 Essential (primary) hypertension; Z79.82 Long term (current) use of aspirin; Z87.891 Personal history of nicotine dependence; Z96.653 Presence of artificial knee joint, bilateral
CPT/HCPCS: 96372; 99284; J1170

== ENCOUNTER 2016-11-23 10:59 | Inpatient (IN) | payer OTHER ==
--- NOTE | 2016-11-23 11:20 | EDPHY ---
H & P Stated Complaint: pain, swelling & smell to R knee wed surg TKR Source: Patient, Family, Old records - Personal History Current Tetanus/Diphtheria Vaccine: Yes Current Tetanus Diphtheria and Acellular Pertussis (TDAP): Yes Tetanus Vaccine Date: 06/12/15 - Medical/Surgical History Hx Asthma: No Hx Chronic Respiratory Disease: No Hx Diabetes: No Hx Cardiac Disease: Yes Hx Renal Disease: Yes Hx Cirrhosis: No Hx Alcoholism: No Hx HIV/AIDS: No Hx Splenectomy or Spleen Trauma: No Other PMH: HTN, Hyperlipidemia. 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 right total knee replacement 2016 - Social History Smoking Status: Former smoker Time Seen by Provider: 11/23/16 11:11 HPI/ROS: CHIEF COMPLAINT: Right lower leg swelling HISTORY OF PRESENT ILLNESS: This is an 81-year-old male presenting to the emergency department complaining of right lower leg swelling blistering calf pain onset last night. Patient patient here in [facility] for right knee replacement on 11/19/2016 discharge. Return to the emergency department on 11/20 with concerns of right knee infection, patient states was discharged "knee looked fine". Patient states all of these symptoms started last night throughout this morning, increased pain with ambulation. Denies any fever chills shortness of breath REVIEW OF SYSTEMS: Constitutional: No fever, no chills. Eyes: No discharge. No blurred vision ENT: No sore throat. Cardiovascular: No chest pain, no palpitations. Respiratory: No cough, no shortness of breath. Gastrointestinal: No abdominal pain, no vomiting. Genitourinary: No difficulty urinating Musculoskeletal: No back pain. Right lower extremity pain with swelling and blistering Skin: No rashes. Blisters to right lower extremity Neurological: No headache. (Karla Randolph) - Physical Exam Exam: General Appearance: Alert, no distress. Afebrile, non ill-appearing Eyes: Pupils equal and round no pallor or injection. ENT, Mouth: Mucous membranes moist. Respiratory: There are no retractions, lungs are clear to auscultation. Cardiovascular: Regular rate and rhythm. Gastrointestinal: Abdomen is soft and nontender, no masses, bowel sounds normal. Neurological: No focal deficits Skin: Warm and dry, right lower extremity blisters noted ecchymosis Musculoskeletal: Neck is supple nontender. right lower extremity incision site noted to right knee well-approximated small amount of erythema noted, calf tenderness on palpation with edema right lower extremity blisters warm to the touch, dorsal pedal pulses palpable touch Extremities: Decreased range of motion right lower extremity Psychiatric: Patient is oriented X 3, acting appropriate (Karla Randolph) Constitutional: Initial Vital Signs Temperature (C) 36.7 C 11/23/16 11:02 Heart Rate 92 11/23/16 11:02 Respiratory Rate 14 11/23/16 11:02 Blood Pressure 171/71 H 11/23/16 11:02 O2 Sat (%) 94 11/23/16 11:02 O2 Delivery Mode Room Air Allergies/Adverse Reactions: ibuprofen Allergy (Severe, Verified 11/14/16 13:55) Unknown Home Medications: Medication Instructions Recorded Finasteride [Proscar 5 MG (*)] 5 mg PO DAILY10 11/23/12 Atorvastatin Calcium [Lipitor 10 10 mg PO HS 08/09/13 mg (*)] Metoprolol Tartrate [Lopressor 25 25 mg PO BID 08/09/13 mg (*)] Flurbiprofen 50 mg PO DAILY 11/14/16 Gabapentin [Neurontin] 600 mg PO TID 11/14/16 amLODIPine BESYLATE [Norvasc 2.5 2.5 mg PO DAILY 11/14/16 mg (*)] Acetaminophen [Tylenol 325mg (*)] 650 mg PO Q6HRS #0 tab 11/20/16 Aspirin [Aspirin 325 mg (*)] 325 mg PO DAILY #21 tab 11/20/16 oxyCODONE IR [Oxycodone Ir (*)] 5 - 10 mg PO Q3HRS PRN #0 tab 11/20/16 traMADol [Ultram 50 mg (*)] 50 mg PO Q6HRS PRN #0 tab 11/20/16 Medical Decision Making - Diagnostics Imaging Results: Imaging Impressions Extremity Venous Study 11/23/16 11:19 Impression: No evidence of deep vein thrombosis in the right lower extremity. Results called and discussed with Karla Randolph NP on 11/23/2016 at 12:39 ED Course/Re-evaluation: Discussed ED plan of care with patient: CBC, CMP, CRP, ESR, blood cultures and wound culture ultrasound to rule out DVT right lower extremity. 1210: Wound culture sent. The hemoglobin 29.9 down from initial visit on 37.8. 1225: The spoke with Dr. Pope ultrasound negative study for DVT. Patient hospital admit to Dr. Pascual. (Karla Randolph) Differential Diagnosis: Other differential diagnosis considered but not limited to septic joint, sepsis , DVT (Karla Randolph) Other Provider: Independent physician documentation I evaluated and participated in the management of the patient. I also evaluated the patient independently. My co-signature indicates that I have reviewed this chart and I agree with the findings and plan of care as documented. My personal H&P findings include: The patient presents to the ED for evaluation of right lower extremity swelling, blistering and increasing pain. The patient is status post right knee replacement performed by Dr. Brumfield on November 19. The patient was seen in the ED several days after his initial surgery and discharged home with pain medications. In the timing suing since that evaluation the patient has developed multiple blisters to his lower extremity. The patient denies fever. He does complain of pain throughout the lower extremity. Physical examination does demonstrate the fairly significant blistering an erythematous changes to the right lower extremity. The patient does have erythema noted along his surgical incision. The patient does have a effusion to his knee. The patient had blood cultures x2 obtained in the emergency department. The patient will be started on vancomycin. I did consult with Dr. Darron Rosado who is covering for the patient's primary orthopedic surgeon Marco Brumfield who will evaluate the patient. The patient was evaluated for evidence of a DVT. I will defer consideration of arthrocentesis to the consulting orthopedic service. (Justin Galvan) - Data Points Laboratory Results: Laboratory Results 11/23/16 11:32 11/23/16 11:32 11/23/16 11/23/16 11/23/16 11:32 11:32 11:32 WBC RBC Hgb Hct Cancelled MCV MCH MCHC RDW Plt Count MPV Neut % (Auto) Lymph % (Auto) [place] % (Auto) Eos % (Auto) Baso % (Auto) Nucleat RBC Rel Count Absolute Neuts (auto) Absolute Lymphs (auto) Absolute Monos (auto) Absolute Eos (auto) Absolute Basos (auto) Absolute Nucleated RBC Immature Gran % Immature Gran # ESR Cancelled Sodium 134 mEq/L mEq/L (134-144) Potassium 4.3 mEq/L mEq/L (3.5-5.2) Chloride 101 mEq/L mEq/L (97-110) Carbon Dioxide 25 mEq/l mEq/l (22-31) Anion Gap 8 mEq/L mEq/L (8-16) BUN 23 mg/dL mg/dL (7-23) Creatinine 1.2 mg/dL mg/dL (0.7-1.3) Estimated GFR 58 Glucose 131 mg/dL H mg/dL (70-100) Calcium 8.7 mg/dL mg/dL (8.5-10.4) Total Bilirubin 1.3 mg/dL mg/dL (0.1-1.4) AST 31 IU/L IU/L (17-59) ALT 29 IU/L IU/L (21-72) Alkaline Phosphatase 63 IU/L IU/L (38-126) C-Reactive Protein 173.7 mg/L H mg/L (<10.0) Total Protein 6.7 g/dL g/dL (6.3-8.2) Albumin 3.6 g/dL g/dL (3.5-5.0) 11/23/16 11:32 WBC 8.54 10^3/uL 10^3/uL (3.80-9.50) RBC 3.09 10^6/uL L 10^6/uL (4.40-6.38) Hgb 9.9 g/dL L g/dL (13.7-17.5) Hct 29.9 % L % (40.0-51.0) MCV 96.8 fL fL (81.5-99.8) MCH 32.0 pg pg (27.9-34.1) MCHC 33.1 g/dL g/dL (32.4-36.7) RDW 12.8 % % (11.5-15.2) Plt Count 156 10^3/uL 10^3/uL (150-400) MPV 8.6 fL L fL (8.7-11.7) Neut % (Auto) 82.2 % H % (39.3-74.2) Lymph % (Auto) 7.1 % L % (15.0-45.0) [place] % (Auto) 8.7 % % (4.5-13.0) Eos % (Auto) 1.4 % % (0.6-7.6) Baso % (Auto) 0.2 % L % (0.3-1.7) Nucleat RBC Rel Count 0.0 % % (0.0-0.2) Absolute Neuts (auto) 7.02 10^3/uL H 10^3/uL (1.70-6.50) Absolute Lymphs (auto) 0.61 10^3/uL L 10^3/uL (1.00-3.00) Absolute Monos (auto) 0.74 10^3/uL 10^3/uL (0.30-0.80) Absolute Eos (auto) 0.12 10^3/uL 10^3/uL (0.03-0.40) Absolute Basos (auto) 0.02 10^3/uL 10^3/uL (0.02-0.10) Absolute Nucleated RBC 0.00 10^3/uL 10^3/uL (0-0.01) Immature Gran % 0.4 % % (0.0-1.1) Immature Gran # 0.03 10^3/uL 10^3/uL (0.00-0.10) ESR 78 MM/HR H MM/HR (0-20) Sodium Potassium Chloride Carbon Dioxide Anion Gap BUN Creatinine Estimated GFR Glucose Calcium Total Bilirubin AST ALT Alkaline Phosphatase C-Reactive Protein Total Protein Albumin Medications Given: Discontinued Medications Vancomycin/Sodium Chloride (Vancomycin 1 Gm (Premix)) 250 mls @ 250 mls/hr IV EDNOW ONE PRN Reason: Protocol Stop: 11/23/16 13:21 Last Admin: 11/23/16 13:04 Dose: 250 mls Departure - Departure Disposition: [facility] Acute Clinical Impression: Cellulitis of leg, right Condition: Good
[2016-11-23 11:40] LABS: % IMMATURE GRANULYOCYTES 0.4 % (0.0-1.1); ABSOLUTE IMMATURE GRANULOCYTES 0.03 10^3/uL (0.00-0.10); ADD DIFF? NO; ADD MORPH? NO; ADD SCAN? NO; ATYPICAL LYMPHOCYTE FLAG 0 (0-99); FRAGMENT RBC FLAG 0 (0-99); HEMATOCRIT 29.9 % (40.0-51.0); HEMOGLOBIN 9.9 g/dL (13.7-17.5); LEFT SHIFT FLG 0 (0-99); LIPEMIA HEMOLYSIS FLAG 80 (0-99); MEAN CELL HEMOGLOBIN CONCENTR. 33.1 g/dL (32.4-36.7); MEAN CELL VOLUME 96.8 fL (81.5-99.8); MEAN PLATELET VOLUME 8.6 fL (8.7-11.7); PLATELET CLUMPS FLAG 0 (0-99); PLATELET COUNT 156 10^3/uL (150-400); RED BLOOD CELL COUNT 3.09 10^6/uL (4.40-6.38); RED CELL DISTRIBUTION WIDTH 12.8 % (11.5-15.2)
[2016-11-23 12:11] LABS: ALANINE AMINOTRANSFERASE 29 IU/L (21-72); ALBUMIN 3.6 g/dL (3.5-5.0); ALKALINE PHOSPHATASE 63 IU/L (38-126); ANION GAP 8 mEq/L (8-16); ASPARTATE AMINOTRANSFERASE 31 IU/L (17-59); BILIRUBIN,TOTAL 1.3 mg/dL (0.1-1.4); CALCIUM 8.7 mg/dL (8.5-10.4); CARBON DIOXIDE 25 mEq/l (22-31); CHLORIDE 101 mEq/L (97-110); CREATININE 1.2 mg/dL (0.7-1.3); GLOMERULAR FILTRATION RATE 58; GLUCOSE 131 mg/dL (70-100); POTASSIUM 4.3 mEq/L (3.5-5.2); SODIUM 134 mEq/L (134-144); TOTAL PROTEIN 6.7 g/dL (6.3-8.2)
[2016-11-23] MEDS ORDERED: VANCOMYCIN HCL/NORMAL SALINE 250 ML IV ONE (12:22)
[2016-11-23 12:27] LABS: SEDIMENTATION RATE 78 MM/HR (0-20)
[2016-11-23] MEDS ORDERED: ONDANSETRON 4 MG/2 ML VIAL IVP PRN (15:05)
[2016-11-23] MEDS ORDERED: ONDANSETRON DISINTEGRATING 4 MG TAB PO PRN (15:05)
[2016-11-23] MEDS ORDERED: traMADol 50 MG TAB PO PRN (15:08)
[2016-11-23] MEDS ORDERED: oxyCODONE IR 5 MG TAB PO PRN (15:08)
[2016-11-23] MEDS ORDERED: BISACODYL 10 MG SUPP PR PRN (15:11)
[2016-11-23] MEDS ORDERED: LACTULOSE 20 GM/30 ML UDCUP PO PRN (15:11)
--- NOTE | 2016-11-23 15:34 | SOAPPROG ---
SOAP Progress Note Assessment/Plan: Assessment: 81 year old male now POD#4 from right TKA (Dr. Brumfield) on 11/19/16. He presented to the [facility] ED earlier today due to right leg, ankle, and foot swelling, blistering and erythema c/w cellulitis. He denies any increased pain in his right knee from baseline. He denies fevers, chills, N/V, anorexia. PE: AVSS RLE: Right anterior knee incision nicely approximated with no erythema, drainage or blistering Right lower leg, ankle, and foot erythema, blistering and superficial oozing c/ w cellulitis Minimal pain with passive right knee ROM +Q, H, TA, EHL, FHL, G/S +SILT in DP, SP, Sural, T, Saphenous distributions 2+ DP and PT pulses Assessment and Plan: 81 year old male now POD#4 from right TKA (Dr. Brumfield) on 11/19/16 with right lower leg, ankle, and foot cellulitis -- incision appears unaffected and intact -WBAT on RLE -PO pain control -bowel regimen -IV antibiotics per medicine and ID recommendations for cellulitis -FU as an outpatient 11/23/16 15:26 Objective: Vital Signs Temp Pulse Resp BP Pulse Ox 36.9 C 82 16 151/65 H 93 11/23/16 14:40 11/23/16 14:40 11/23/16 14:40 11/23/16 14:40 11/23/16 14:40 11/22/16 11/23/16 11/24/16 05:59 05:59 05:59 Intake Total 250 Balance 250 ICD10 Worksheet Patient Problems: Problems Problem Status Onset Cellulitis of leg, right Acute Chest pain Acute Knee pain, acute Acute Osteoarthritis of right knee Acute Primary osteoarthritis of left knee Acute
[2016-11-23] MEDS ORDERED: BISACODYL 5 MG EC TAB PO PRN (15:56)
[2016-11-23] MEDS ORDERED: NON-FORMULARY NEW DRUG (Gabapentin [Neurontin] 600 MG) PO SCH (16:00)
--- NOTE | 2016-11-23 16:01 | PDGENHP ---
History and Physical - Chief Complaint acute leg pain - History of Present Illness primary care provider: Dr. Melvin Martinez Primary orthopedist: Dr. Marco Brumfield Primary general surgeon: Dr. Brandon Primary pulp bleacher: Dr. Roque Dolan HPI: 81-year-old male presenting with acute leg pain characterized as severe burning pain with associated swelling and blistering with onset of symptoms on the evening prior to this presentation and duration progressively worsening thereafter. Patient reports that the pain is exacerbated by standing and was mildly alleviated by Dilaudid which he received in the emergency department. reports that his home doses and tramadol are not curing the pain. He has also had some associated constipation and he cannot remember his last bowel movement. He reports he has been attempting to rehab his right knee following surgery and the pain located in his distal right lower extremity has been prevented this. History Information - Allergies/Home Medication List Allergies/Adverse Reactions: ibuprofen Allergy (Severe, Verified 11/14/16 13:55) Unknown Home Medications: Finasteride [Proscar 5 MG (*)] 5 mg PO DAILY10 11/23/12 [Last Taken 11/19/16] Atorvastatin Calcium [Lipitor 10 mg (*)] 10 mg PO HS 08/09/13 [Last Taken ] Metoprolol Tartrate [Lopressor 25 mg (*)] 25 mg PO BID 08/09/13 [Last Taken ] Flurbiprofen 50 mg PO DAILY 11/14/16 [Last Taken 11/14/16] Gabapentin [Neurontin] 600 mg PO TID 11/14/16 [Last Taken 11/19/16] amLODIPine BESYLATE [Norvasc 2.5 mg (*)] 2.5 mg PO DAILY 11/14/16 [Last Taken ] I have personally reviewed and updated: family history, medical history, social history, surgical history - Past Medical History Additional medical history: Chronic kidney disease stage 3 with baseline creatinine around 1.5. Hypertension. Hyperlipidemia. Osteoarthritis. Prostate cancer with cryotherapy. Right bundle branch block. Irritable bowel syndrome. Bilateral plantar surface neuropathy - Surgical History Additional surgical history: 11/19/2016 right total knee arthroplasty. Left total knee arthroplasty. Bilateral CEA - Family History Additional family history: father with DE in his 50s, no familial skin infections or dermatologic issues - Social History Smoking Status: Former smoker Alcohol Use: None Drug Use: None Additional social history: normally independent in his ADLs Review of Systems ROS: 10pt was reviewed & negative except for what was stated in HPI & below Gastrointestinal: Reports: constipation Skin: Reports: other ( pain edema distal right lower extremity) Physical Exam Temp Pulse Resp BP Pulse Ox 36.9 C 82 16 151/65 H 93 11/23/16 14:40 11/23/16 14:40 11/23/16 14:40 11/23/16 14:40 11/23/16 14:40 Constitutional: no apparent distress, obese, uncomfortable, No not in pain ( mild pain) Eyes: PERRL, anicteric sclera, EOMI Ears, Nose, Mouth, Throat: moist mucous membranes, hearing normal, ears appear normal, no oral mucosal ulcers Cardiovascular: regular rate and rhythym, systolic murmur ( 2/6 systolic murmur at the right sternal border and apex), edema ( 1+ right lower extremity edema) Respiratory: no respiratory distress, no rales or rhonchi, clear to auscultation Gastrointestinal: normoactive bowel sounds, soft, non-tender abdomen, no palpable masses Skin: other ( blistering and separation of the skin layers on his anterior right barajas distal to his surgical site, no erythema surrounding the right knee surgical site tender ecchymoses on the right lower extremity) Musculoskeletal: other ( effusion around his right knee with mild tenderness along the lateral aspect, pain with flexion to 20 degrees right knee) Neurologic: AAOx3, sensation intact bilaterally ( bilateral plantar surfaces of the feet), No facial droop Psychiatric: interacting appropriately, not anxious, not encephalopathic, thought process linear Lab Data & Imaging Review 11/23/16 11:32 11/23/16 11:32 WBC 8.54 10^3/uL (3.80-9.50) 11/23/16 11:32 RBC 3.09 10^6/uL (4.40-6.38) L 11/23/16 11:32 Hgb 9.9 g/dL (13.7-17.5) L 11/23/16 11:32 Hct 29.9 % (40.0-51.0) L 11/23/16 11:32 MCV 96.8 fL (81.5-99.8) 11/23/16 11:32 MCH 32.0 pg (27.9-34.1) 11/23/16 11:32 MCHC 33.1 g/dL (32.4-36.7) 11/23/16 11:32 RDW 12.8 % (11.5-15.2) 11/23/16 11:32 Plt Count 156 10^3/uL (150-400) 11/23/16 11:32 MPV 8.6 fL (8.7-11.7) L 11/23/16 11:32 Neut % (Auto) 82.2 % (39.3-74.2) H 11/23/16 11:32 Lymph % (Auto) 7.1 % (15.0-45.0) L 11/23/16 11:32 [place] % (Auto) 8.7 % (4.5-13.0) 11/23/16 11:32 Eos % (Auto) 1.4 % (0.6-7.6) 11/23/16 11:32 Baso % (Auto) 0.2 % (0.3-1.7) L 11/23/16 11:32 Nucleat RBC Rel Count 0.0 % (0.0-0.2) 11/23/16 11:32 Absolute Neuts (auto) 7.02 10^3/uL (1.70-6.50) H 11/23/16 11:32 Absolute Lymphs (auto) 0.61 10^3/uL (1.00-3.00) L 11/23/16 11:32 Absolute Monos (auto) 0.74 10^3/uL (0.30-0.80) 11/23/16 11:32 Absolute Eos (auto) 0.12 10^3/uL (0.03-0.40) 11/23/16 11:32 Absolute Basos (auto) 0.02 10^3/uL (0.02-0.10) 11/23/16 11:32 Absolute Nucleated RBC 0.00 10^3/uL (0-0.01) 11/23/16 11:32 Immature Gran % 0.4 % (0.0-1.1) 11/23/16 11:32 Immature Gran # 0.03 10^3/uL (0.00-0.10) 11/23/16 11:32 ESR 78 MM/HR (0-20) H 11/23/16 11:32 Sodium 134 mEq/L (134-144) 11/23/16 11:32 Potassium 4.3 mEq/L (3.5-5.2) 11/23/16 11:32 Chloride 101 mEq/L (97-110) 11/23/16 11:32 Carbon Dioxide 25 mEq/l (22-31) 11/23/16 11:32 Anion Gap 8 mEq/L (8-16) 11/23/16 11:32 BUN 23 mg/dL (7-23) 11/23/16 11:32 Creatinine 1.2 mg/dL (0.7-1.3) 11/23/16 11:32 Estimated GFR 58 11/23/16 11:32 Glucose 131 mg/dL (70-100) H 11/23/16 11:32 Calcium 8.7 mg/dL (8.5-10.4) 11/23/16 11:32 Total Bilirubin 1.3 mg/dL (0.1-1.4) 11/23/16 11:32 AST 31 IU/L (17-59) 11/23/16 11:32 ALT 29 IU/L (21-72) 11/23/16 11:32 Alkaline Phosphatase 63 IU/L (38-126) 11/23/16 11:32 C-Reactive Protein 173.7 mg/L (<10.0) H 11/23/16 11:32 Total Protein 6.7 g/dL (6.3-8.2) 11/23/16 11:32 Albumin 3.6 g/dL (3.5-5.0) 11/23/16 11:32 Assessment & Plan Assessment: 81-year-old male presents with suspected streptococcal cellulitis in the right lower extremity Plan: 1. Cellulitis. Acute, new problem this provider, further workup indicated. Suspect streptococcal with development of bullae and patel fluid collecting between skin layers, distal to the surgical area do not appear to be related to the actual surgical site - lower extremity ultrasound demonstrating no DVT - discussed with Dr. pina's, we both agree that the affected skin areas appear to be distal to the knee that this does not most likely represent an overt surgical site infection but rather cellulitis overall thing in setting of lower extremity edema and no washout of the knee is indicated at this time - status post vancomycin in the emergency department continue renally dosed - get Infectious Disease consultation - get wound care consult - get x-ray of the affected area to ensure there is not any subcutaneous gas which would require more urgent surgical consultation potentially clindamycin for lovelock affect - give 1 dose of Lasix now gauge whether edema begins to improve 2. Leg pain. Acute, most likely secondary to inflammation, edema, cellulitis - give Lasix - adjust to Dilaudid oral and IV - initiate bowel regiment while on opiates 3. Chronic kidney disease stage 3. Creatinine currently less than baseline, signifying mild volume overload, give Lasix as outlined above 4. Osteoarthritis. Outside records reviewed including 11/20/[address] Brumfield indicating total knee arthroplasty 11/19/2016 with ASA 325 as ppx - adjusted aspirin prophylaxis to heparin subcu Diet. Cardiac Prophylaxis. High risk patient, heparin subcu Code. Full per patient, his is MPOA Disposition. Anticipated discharge is potentially 6/5 depending on clinical improvement and Infectious Disease impression, upgraded to inpatient admission status tomorrow if the patient requires ongoing use of IV antibiotics and frequent reassessments.
[2016-11-23] MEDS: HYDROmorphONE/DILAUDID 1 MG/ML SYR IVP PRN (16:07)
[2016-11-23] MEDS: GABAPENTIN 300 MG CAP PO SCH ×2 (16:10→21:09)
[2016-11-23] MEDS: HYDROmorphONE/DILAUDID 2 MG TAB PO PRN ×2 (16:51→21:18)
[2016-11-23] MEDS: FUROSEMIDE 20 MG/2 ML VIAL IVP SCH (16:51)
[2016-11-23] MEDS: POLYETHYLENE GLYCOL 3350 17 GM PKT PO PRN ×2 (16:52→21:18)
[2016-11-23] MEDS: METOPROLOL TARTRATE 25 MG TAB PO SCH (21:08)
[2016-11-23] MEDS: SENNOSIDES/DOCUSATE SODIUM TAB PO SCH (21:08)
[2016-11-23] MEDS: ATORVASTATIN CALCIUM 10 MG TAB PO SCH (21:09)
[2016-11-23] MEDS: ACETAMINOPHEN 325 MG TAB PO PRN (21:19)
[2016-11-23] MEDS: HEPARIN 5,000 UNIT/0.5 ML SYR SC SCH (21:24)
[2016-11-24 04:44] LABS: % IMMATURE GRANULYOCYTES 0.4 % (0.0-1.1); ABSOLUTE IMMATURE GRANULOCYTES 0.04 10^3/uL (0.00-0.10); ADD DIFF? NO; ADD MORPH? NO; ADD SCAN? NO; ATYPICAL LYMPHOCYTE FLAG 0 (0-99); FRAGMENT RBC FLAG 0 (0-99); HEMATOCRIT 31.3 % (40.0-51.0); HEMOGLOBIN 10.4 g/dL (13.7-17.5); LEFT SHIFT FLG 0 (0-99); LIPEMIA HEMOLYSIS FLAG 80 (0-99); MEAN CELL HEMOGLOBIN 32.3 pg (27.9-34.1); MEAN CELL HEMOGLOBIN CONCENTR. 33.2 g/dL (32.4-36.7); MEAN CELL VOLUME 97.2 fL (81.5-99.8); MEAN PLATELET VOLUME 8.8 fL (8.7-11.7); PLATELET CLUMPS FLAG 0 (0-99); PLATELET COUNT 185 10^3/uL (150-400); RED BLOOD CELL COUNT 3.22 10^6/uL (4.40-6.38); RED CELL DISTRIBUTION WIDTH 12.8 % (11.5-15.2)
[2016-11-24 05:02] LABS: ANION GAP 11 mEq/L (8-16); CALCIUM 8.6 mg/dL (8.5-10.4); CARBON DIOXIDE 27 mEq/l (22-31); CHLORIDE 100 mEq/L (97-110); CREATININE 1.3 mg/dL (0.7-1.3); GLOMERULAR FILTRATION RATE 53; GLUCOSE 123 mg/dL (70-100); POTASSIUM 4.6 mEq/L (3.5-5.2); SODIUM 138 mEq/L (134-144)
[2016-11-24] MEDS: HEPARIN 5,000 UNIT/0.5 ML SYR SC SCH ×3 (11:16→20:55)
[2016-11-24] MEDS: GABAPENTIN 300 MG CAP PO SCH ×3 (11:17→20:54)
[2016-11-24] MEDS: SENNOSIDES/DOCUSATE SODIUM TAB PO SCH ×2 (11:17→20:53)
[2016-11-24] MEDS: METOPROLOL TARTRATE 25 MG TAB PO SCH ×2 (11:17→20:54)
[2016-11-24] MEDS: FINASTERIDE 5 MG TAB PO SCH (11:17)
[2016-11-24] MEDS: FUROSEMIDE 20 MG/2 ML VIAL IVP SCH (11:17)
[2016-11-24] MEDS: FLURBIPROFEN PO SCH (11:17)
--- NOTE | 2016-11-24 12:15 | WOCRNPDOC ---
WOCRN Advanced Assessment Note - Skin Integrity Problem, Advanced Assess Right Lower Leg Blister Dressing Type: Open to Air Exudate Amount: None Exudate Characteristic(s): None Marilee Wound Tissue: Ecchymotic, Erythema, Swollen, Hemosiderin Staining, Venous Dermatitis Marilee Wound Swelling: Moderate Wound Bed Color: Purple Wound Bed Constitution: Intact Serous Filled Blister Site Odor: None Site Measurement - Head-to-Toe Length X Width X Depth (cm): 3cmx3.5cmx blister Skin Integrity Problem Comment: Large, ecchymotic intact bulla noted on anterior LE, w/ smaller yellow, serous-filled bulla adjacent. Both sites appear to be the result of swelling in this extremity r/t cellulitis. Patient has +3 pitting pedal edema, and +1 pitting edema up to his R knee. Marilee-wound tissue is edematous, ecchymotic, and has hemosiderin staining throughout, suggesting patient may have concurrent venous insufficiency in this extremity. Same hemosiderin staining pattern noted on LLE, with trace edema evident. Advise covering bullae with Tegaderm Absorbant dressing to protect from friction and to absorb exudate if either site begins to drain. Wound care will follow up with patient again on 12/01.
--- NOTE | 2016-11-24 12:22 | HOSPPROG ---
Hospitalist Progress Note Assessment/Plan: 81-year-old male presents with suspected streptococcal cellulitis in the right lower extremity. This is my first encounter, chart reviewed. Plan: 1. Cellulitis. Possible streptococcal with development of bullae and patel fluid collecting between skin layers, distal to the surgical area. - lower extremity ultrasound demonstrating no DVT - Appreciate Dr. kumar, affected skin areas appear to be distal to the knee that this does not most likely represent an overt surgical site infection no washout of the knee is indicated at this time - status post vancomycin in the emergency department continue renally dosed - Infectious Disease consultation pending - wound care - x-ray of the affected area, reviewed, no impressive gas -1 dose of Lasix given, cont to follow 2. Leg pain. Acute, most likely secondary to inflammation, edema, cellulitis - Dilaudid oral and IV - initiate bowel regiment while on opiates 3. Chronic kidney disease stage 3. Creatinine currently less than baseline 4. Osteoarthritis. - ASA 325 as ppx - adjusted aspirin prophylaxis to heparin subcu Diet. Cardiac Prophylaxis. High risk patient, heparin subcu Code. Full per patient, his is MPOA Disposition. change to inpt status. Cont IV abx await ID consult Subjective: Feeling well. Still some discomfort in RLE. Hungry. Objective: Vital Signs Temp Pulse Resp BP Pulse Ox 37.0 C 88 16 152/58 H 90 L 11/24/16 11:28 11/24/16 11:28 11/24/16 11:28 11/24/16 11:28 11/24/16 11:28 Laboratory Results 11/24/16 04:20 11/24/16 04:20 11/23/16 11/24/16 11/25/16 05:59 05:59 05:59 Intake Total 250 Balance 250 - Physical Exam Constitutional: no apparent distress, appears nourished, not in pain Eyes: PERRL, anicteric sclera, EOMI Ears, Nose, Mouth, Throat: moist mucous membranes, hearing normal, ears appear normal Cardiovascular: edema, No JVD, No tachycardia Respiratory: no respiratory distress, no rales or rhonchi, reduced air movement Gastrointestinal: No tenderness, No ascites, No guarding Skin: warm, erythema, induration, No mottled Musculoskeletal: no joint effusions, pain with ROM, generalized weakness, No full muscle strength Psychiatric: not anxious, not encephalopathic, poor insight, poor judgement ICD10 Worksheet Patient Problems: Problems Problem Status Onset Knee pain, acute Acute Cellulitis of leg, right Acute Osteoarthritis of right knee Acute Primary osteoarthritis of left knee Acute Chest pain Acute
[2016-11-24] MEDS: HYDROmorphONE/DILAUDID 2 MG TAB PO PRN ×2 (15:06→20:55)
[2016-11-24] MEDS: ACETAMINOPHEN 325 MG TAB PO PRN (16:35)
[2016-11-24] MEDS: HYDROmorphONE/DILAUDID 1 MG/ML SYR IVP PRN (16:37)
[2016-11-24] MEDS: ATORVASTATIN CALCIUM 10 MG TAB PO SCH (20:57)
[2016-11-25] MEDS: HYDROmorphONE/DILAUDID 2 MG TAB PO PRN ×5 (01:05→21:22)
[2016-11-25] MEDS: ACETAMINOPHEN 325 MG TAB PO PRN ×3 (01:06→13:23)
[2016-11-25] MEDS: HEPARIN 5,000 UNIT/0.5 ML SYR SC SCH ×3 (05:38→21:21)
[2016-11-25] MEDS: SENNOSIDES/DOCUSATE SODIUM TAB PO SCH ×2 (08:30→21:21)
[2016-11-25] MEDS: GABAPENTIN 300 MG CAP PO SCH ×3 (08:30→21:21)
[2016-11-25] MEDS: METOPROLOL TARTRATE 25 MG TAB PO SCH ×2 (08:30→21:22)
[2016-11-25] MEDS: FUROSEMIDE 20 MG/2 ML VIAL IVP SCH (08:31)
[2016-11-25] MEDS: FLURBIPROFEN PO SCH (08:35)
[2016-11-25] MEDS: FINASTERIDE 5 MG TAB PO SCH (10:46)
[2016-11-25] MEDS: CLINDAMYCIN 600 MG/DEXTROSE 50 ML IV SCH ×2 (13:49→21:22)
--- NOTE | 2016-11-25 14:13 | HOSPPROG ---
Hospitalist Progress Note Assessment/Plan: 81-year-old male presents with suspected streptococcal cellulitis in the right lower extremity. Plan: 1. Cellulitis. Possible streptococcal with development of bullae and patel fluid collecting between skin layers, distal to the surgical area. - lower extremity ultrasound demonstrating no DVT - Appreciate Dr. kumar, affected skin areas appear to be distal to the knee that this does not most likely represent an overt surgical site infection no washout of the knee is indicated at this time - status post vancomycin in the emergency department, defer abx to ID - Infectious Disease consultation pending, D/W Dr Reeder - wound care - x-ray of the affected area, reviewed, no impressive gas -1 dose of Lasix given, cont to follow, consider giving another dose 2. Leg pain. Acute, most likely secondary to inflammation, edema, cellulitis - Dilaudid oral and IV - initiate bowel regiment while on opiates -less pain today 3. Chronic kidney disease stage 3. Creatinine currently less than baseline 4. Osteoarthritis. - ASA 325 as ppx - adjusted aspirin prophylaxis to heparin subcu Diet. Cardiac Prophylaxis. High risk patient, heparin subcu Code. Full per patient, his is MPOA Disposition. inpt status. Cont IV abx Subjective: Feeling better then yesterday. Less pain. Objective: Vital Signs Temp Pulse Resp BP Pulse Ox 36.7 C 73 16 121/59 H 96 11/25/16 07:49 11/25/16 07:49 11/25/16 07:49 11/25/16 07:49 11/25/16 07:49 11/24/16 11/25/16 11/26/16 05:59 05:59 05:59 Intake Total 2049 Output Total 600 Balance 1450 - Physical Exam Constitutional: no apparent distress, appears nourished, uncomfortable Eyes: PERRL, anicteric sclera, EOMI Ears, Nose, Mouth, Throat: moist mucous membranes, hearing normal, ears appear normal Cardiovascular: No JVD, No tachycardia, No edema Respiratory: no respiratory distress, no rales or rhonchi, reduced air movement Gastrointestinal: No tenderness, No ascites, No guarding Skin: warm, erythema, fluctuance Musculoskeletal: pain with ROM, muscular tenderness, abnormal gait, generalized weakness Neurologic: AAOx3 Psychiatric: not anxious, not encephalopathic, thought process linear ICD10 Worksheet Patient Problems: Problems Problem Status Onset Knee pain, acute Acute Cellulitis of leg, right Acute Osteoarthritis of right knee Acute Primary osteoarthritis of left knee Acute Chest pain Acute
--- NOTE | 2016-11-25 14:43 | GCON ---
[f rep st] CONSULTATION INFECTIOUS DISEASE CONSULTATION DATE OF CONSULTATION: 11/25/2016 REFERRING PHYSICIAN: Nicci Mitchell NP REASON FOR CONSULTATION: Right lower extremity cellulitis. CHIEF COMPLAINT: Right leg redness with pain. HISTORY OF PRESENT ILLNESS: 81-year-old male with a past medical history significant for hypertension, dyslipidemia, prostate cancer, right bundle-branch block, some neuropathy. He recentl y had a right total knee arthroplasty done on November 19, 2016. He states that shortly after the surger y he did go home, but was having more pain by the end of the week and started to have some chills. He contacted his provider to get some direction on pain medications to help. But by Thursday or , November 22, he noticed that he had redness involving his foot and leg. By the next day, he start ed to notice some blistering as well. He came into the ED for further evaluation. His white blood cell count at the time was 8.5, but with a left shift and elevated ESR at 78. Blood cultures x2 set s were drawn, and they are no growth to date. He did have a leg wound culture done, which shows no organisms. He apparently was given a dose of vancomycin, but has not received any further vancomyci n since that time. Yesterday, his white blood cell count went up to 9.8. He had an ultrasound of t he lower extremity done, which showed no DVT. He had a tib-fib x-ray done, which showed some minima l soft tissue gas that could be postoperative in nature. He was seen by Dr. Girard who felt that t here was no evidence of septic knee, and so therefore, did not warrant any type of washout. Today, patient tells me he is having a high degree of pain, around 8/10. The pain medications do help, but he has quite a bit of pain with minimal palpation. The blistering has now turned to more bloody in nature with bruising on the back of the leg. Infectious Diseases is now consulted for further eval uation and opinion regarding the above. REVIEW OF SYSTEMS: GENERAL: Has some fevers and shaking chills. HEAD: Denies any headaches. EYE S: No changes in vision. ENT: No sore throat, difficulty swallowing, ear pain or ear drainage. H e wears hearing aids. CARDIOVASCULAR: Denies any chest pain or rapid heartbeat. RESPIRATORY: Den ies any shortness of breath, cough, . ABDOMEN: No nausea, vomiting, abdominal pain, or d iarrhea. GENITOURINARY: Does have decreased urinary flow, but denies any burning with pee. BACK: Denies any back pain, flank pain. MUSCULOSKELETAL: Does have some discomfort involving his right knee as such, but far less than the right foot and leg. There is some swelling of the right knee. SKIN: As above. Rest of the 10-point review of systems essentially negative except for above. PAST MEDICAL HISTORY: Significant for osteoarthritis, dyslipidemia, hypertension, irritable bowel s yndrome, right bundle branch block, some peripheral neuropathy, intermittent elevations of creatinin e in the past. PAST SURGICAL HISTORY: Significant for right total knee arthroplasty November 19, 2016, left total knee arthroplasty, and bilateral CEAs. SOCIAL HISTORY: He is a former smoker. Does not drink alcohol. Lives independently. FAMILY HISTORY: Significant for MIs in his father. MEDICATIONS: As per AUG. ALLERGIES: To ibuprofen. PHYSICAL EXAMINATION: VITAL SIGNS: Temperature current 36.7, pulse is 73, blood pressure 121/59, r espiratory rate is 16, saturation 96% on 2 L O2 via nasal cannula. GENERAL: Patient is resting in bed, in pain, but in no acute respiratory distress. Awake, alert, and oriented x3. HEENT: Head: Normocephalic, atraumatic. Eyes are without conjunctival injection. Oropharynx is clear. CARDIOVA SCULAR: S1, S2. Regular rate and rhythm. He has a 3/6 systolic murmur appreciated. RESPIRATORY: Clear to auscultate bilaterally. No rhonchi or rales appreciated. ABDOMEN: Positive bowel sounds in all quadrants. Soft, nontender, nondistended. No organomegaly appreciated. EXTREMITIES: Pert inent findings, he does have a right lower extremity edema involving the foot, leg. He does have a mild joint effusion involving the right knee. Surgical site is intact with some mild patchy erythem a overlying. Skin is warm to touch. There are Steri-Strips still in place. Other than that, there is bright red erythema involving the foot and the leg of the right lower extremity with 2 blisters, 1 is hemorrhagic in nature. There is otherwise ecchymosis over the skin especially on the posterio r aspect of the leg. Some dryness of the skin on the plantar surface of the heel. LABS: White blood cell count 9.8, hemoglobin 10.4, platelets are 185, neutrophil count 76%. Sodium 138, potassium 4.6, chloride 100, bicarb is 27, BUN 23, creatinine is 1.3, glucose 123. C-reactive protein 173.7. LFTs on admission were within the normal range. Blood cultures x2 shows no growth to date. Leg wound culture with no organisms and no growth to date. Imaging results have all been reviewed by me and as stated above. ASSESSMENT: Right lower extremity acute cellulitis with blister formation after recent right total knee arthroplasty. PLAN: At this point in time, what is most concerning is that he has this hemorrhagic blistering and bullae present with ecchymosis, particularly on the posterior aspect of the leg and exquisite tende rness to mild palpation. Would recommend an MRI to rule out or evaluate further for necrotizing fas ciitis. He is currently not on any antibiotics, and only got 1 dose from the ER per records. Would check blood cultures x2, start vancomycin, Invanz, and clindamycin for broad spectrum antimicrobial therapy along with antitoxin properties until can be further evaluated. If there are any deeper ne crotizing-like changes, he will need General Surgery to be involved for exploration and debridement. He does have a joint effusion involving the right knee, and this may need to be tapped, but will n ot address at present today, but will need to be followed for further assessment. The above plan wa s discussed with the patient in great detail. I thank you very much for providing this opportunity to care for your patient in consultation. /[id number]/MODL
[2016-11-25] MEDS: ERTAPENEM 1 GM in NS 100 ML IV SCH (14:45)
[2016-11-25 14:47] LABS: CREATININE 1.3 mg/dL (0.7-1.3)
[2016-11-25] MEDS: VANCOMYCIN HCL/NORMAL SALINE 250 ML IV SCH (15:29)
[2016-11-25] MEDS ORDERED: GADOBUTROL 10 ML VIAL IVP ONE (16:14)
[2016-11-25] MEDS: HYDROmorphONE/DILAUDID 1 MG/ML SYR IVP PRN (16:17)
[2016-11-25] MEDS: ATORVASTATIN CALCIUM 10 MG TAB PO SCH (21:21)
[2016-11-26] MEDS: VANCOMYCIN HCL/NORMAL SALINE 250 ML IV SCH ×2 (01:59→15:28)
[2016-11-26 04:48] LABS: % IMMATURE GRANULYOCYTES 0.4 % (0.0-1.1); ABSOLUTE IMMATURE GRANULOCYTES 0.03 10^3/uL (0.00-0.10); ADD DIFF? NO; ADD MORPH? NO; ADD SCAN? NO; ATYPICAL LYMPHOCYTE FLAG 0 (0-99); FRAGMENT RBC FLAG 0 (0-99); HEMATOCRIT 26.9 % (40.0-51.0); HEMOGLOBIN 9.1 g/dL (13.7-17.5); LEFT SHIFT FLG 0 (0-99); LIPEMIA HEMOLYSIS FLAG 90 (0-99); MEAN CELL HEMOGLOBIN 32.5 pg (27.9-34.1); MEAN CELL HEMOGLOBIN CONCENTR. 33.8 g/dL (32.4-36.7); MEAN CELL VOLUME 96.1 fL (81.5-99.8); MEAN PLATELET VOLUME 8.7 fL (8.7-11.7); PLATELET CLUMPS FLAG 0 (0-99); PLATELET COUNT 195 10^3/uL (150-400); RED CELL DISTRIBUTION WIDTH 12.5 % (11.5-15.2)
[2016-11-26] MEDS: HEPARIN 5,000 UNIT/0.5 ML SYR SC SCH ×3 (05:47→21:57)
[2016-11-26] MEDS: HYDROmorphONE/DILAUDID 2 MG TAB PO PRN ×5 (05:47→21:58)
[2016-11-26] MEDS: CLINDAMYCIN 600 MG/DEXTROSE 50 ML IV SCH ×3 (05:47→21:58)
[2016-11-26 05:58] LABS: ALANINE AMINOTRANSFERASE 35 IU/L (21-72); ALBUMIN 2.7 g/dL (3.5-5.0); ALKALINE PHOSPHATASE 73 IU/L (38-126); ANION GAP 10 mEq/L (8-16); ASPARTATE AMINOTRANSFERASE 36 IU/L (17-59); BILIRUBIN,TOTAL 0.9 mg/dL (0.1-1.4); CALCIUM 7.6 mg/dL (8.5-10.4); CARBON DIOXIDE 25 mEq/l (22-31); CHLORIDE 101 mEq/L (97-110); CREATININE 1.2 mg/dL (0.7-1.3); GLOMERULAR FILTRATION RATE 58; GLUCOSE 112 mg/dL (70-100); POTASSIUM 3.9 mEq/L (3.5-5.2); SODIUM 136 mEq/L (134-144); TOTAL PROTEIN 5.1 g/dL (6.3-8.2)
[2016-11-26] MEDS: SENNOSIDES/DOCUSATE SODIUM TAB PO SCH ×2 (09:43→20:21)
[2016-11-26] MEDS: METOPROLOL TARTRATE 25 MG TAB PO SCH ×2 (09:44→20:21)
[2016-11-26] MEDS: GABAPENTIN 300 MG CAP PO SCH ×3 (09:44→21:58)
[2016-11-26] MEDS: FINASTERIDE 5 MG TAB PO SCH (09:44)
[2016-11-26] MEDS: ERTAPENEM 1 GM in NS 100 ML IV SCH (09:45)
[2016-11-26] MEDS: FUROSEMIDE 20 MG/2 ML VIAL IVP SCH (09:45)
[2016-11-26] MEDS: FLURBIPROFEN PO SCH (09:46)
[2016-11-26] MEDS: ACETAMINOPHEN 325 MG TAB PO PRN (09:48)
[2016-11-26] MEDS: POLYETHYLENE GLYCOL 3350 17 GM PKT PO PRN (09:50)
--- NOTE | 2016-11-26 12:14 | PCMIDPN ---
Assessment/Plan: # RLE severe cellulitis: clinically stable today, not worse but not clearly better. WBC/L shift slightly improved. AF. Likely portal of entry incision TKA. TKA does not appear involved. Clinical appearance c/w streptococcal disease, but no specific organism isolated --reviewed importance of monitoring for increasing pain --hold off on surgical consult for now --continue broad spec empiric antibiotic therapy # Renal insufficiency with baseline around 1.5 (CrCl=50) --Cr stable today at 1.2, will check vanco T tomorrow at 1330 if not discontinued after assessment tomorrow --continue vancomycin at current dose for now meds vancomycin 1gm IV q12h #1 ertapenem 1gm IV daily #2 Clindamycin 600mg IV q8h #1 microbiology 11/23blood cx (2) ngtd 11/25 blood cx (2) pending 11/23 wound cx negative Subjective: pain and redness RLE stable Objective: Vital Signs Temp Pulse Resp BP Pulse Ox 36.6 C 73 18 126/55 H 92 11/26/16 08:11 11/26/16 08:11 11/26/16 08:11 11/26/16 08:11 11/26/16 08:11 Laboratory Results 11/26/16 04:24 11/26/16 04:24 11/25/16 11/26/16 11/27/16 05:59 05:59 05:59 Intake Total 2050 875 300 Output Total 600 200 Balance 1450 675 300 ESR 78 MM/HR (0-20) H 11/23/16 11:32 C-Reactive Protein 173.7 mg/L (<10.0) H 11/23/16 11:32 - Physical Exam General Appearance: alert, no apparent distress, obese EENT: No scleral icterus Respiratory: No accessory muscle use Neck: supple Extremities: swelling (R knee but knee and incision without erythema, able to flex knee appropriate +effusion), erythema (very intense bright erythema R foot , lower leg in stocking distribution with hemorragic bullae on anterior barajas) Abdomen: non-tender, soft Male Genitalia: No penn Skin: No rash Neuro/Psych: alert, normal mood/affect, oriented x 3 - Line/s PIV Lines: other (R anticubital), No drainage, No erythema - Time Spent With Patient Time Spent with Patient: greater than 35 minutes (reviewed pathogenesis of cellulitis, necrotizing fasciitis with patient and by phone with his daughter) Time Spent with Patient: Greater than 35 minutes spent on this patients care, greater than 50% of time spent counseling, educating, and coordinating care regarding the above mentioned plan. ICD10 Worksheet Patient Problems: Problems Problem Status Onset Cellulitis of leg, right Acute Chest pain Acute Knee pain, acute Acute Osteoarthritis of right knee Acute Primary osteoarthritis of left knee Acute
--- NOTE | 2016-11-26 14:13 | HOSPPROG ---
Hospitalist Progress Note Assessment/Plan: 81-year-old male presents with cellulitis in the right lower extremity. Plan: 1. Severe Cellulitis. -stable but not improved - lower extremity ultrasound demonstrating no DVT - wound care -MRI stable vancomycin 1gm IV q12h #1 ertapenem 1gm IV daily #2 Clindamycin 600mg IV q8h #1 2. Leg pain. Acute, most likely secondary to inflammation, edema, cellulitis - Dilaudid oral and IV - initiate bowel regiment while on opiates 3. Chronic kidney disease stage 3. -Cr stable 1.2 4. Osteoarthritis. - ASA 325 as ppx - adjusted aspirin prophylaxis to heparin subcu Diet. Cardiac Prophylaxis. High risk patient, heparin subcu Code. Full per patient, his is MPOA Disposition. inpt status. Cont IV abx D/W daughter on phone and Dr Ireland Subjective: Still having pain and not feeling well. Frustrated by situation. Objective: Vital Signs Temp Pulse Resp BP Pulse Ox 36.6 C 73 18 126/55 H 92 11/26/16 08:11 11/26/16 08:11 11/26/16 08:11 11/26/16 08:11 11/26/16 08:11 Laboratory Results 11/26/16 04:24 11/26/16 04:24 11/25/16 11/26/16 11/27/16 05:59 05:59 05:59 Intake Total 2050 875 300 Output Total 600 200 Balance 1450 675 300 - Physical Exam Constitutional: no apparent distress, appears nourished, uncomfortable Eyes: PERRL, anicteric sclera, EOMI Ears, Nose, Mouth, Throat: moist mucous membranes, hearing normal, ears appear normal Cardiovascular: edema, No JVD, No tachycardia Respiratory: no respiratory distress, no rales or rhonchi, reduced air movement Gastrointestinal: No tenderness, No ascites, No guarding Skin: warm, erythema, No pressure ulcer Musculoskeletal: normal joint ROM, no joint effusions, generalized weakness Neurologic: AAOx3 Psychiatric: not anxious, not encephalopathic, thought process linear ICD10 Worksheet Patient Problems: Problems Problem Status Onset Knee pain, acute Acute Cellulitis of leg, right Acute Osteoarthritis of right knee Acute Primary osteoarthritis of left knee Acute Chest pain Acute
[2016-11-26] MEDS: ATORVASTATIN CALCIUM 10 MG TAB PO SCH (20:21)
[2016-11-27] MEDS: VANCOMYCIN HCL/NORMAL SALINE 250 ML IV SCH ×2 (01:02→13:58)
[2016-11-27] MEDS: HEPARIN 5,000 UNIT/0.5 ML SYR SC SCH ×3 (05:33→22:55)
[2016-11-27] MEDS: CLINDAMYCIN 600 MG/DEXTROSE 50 ML IV SCH ×3 (05:33→22:54)
[2016-11-27 05:35] LABS: ANION GAP 10 mEq/L (8-16); CALCIUM 7.7 mg/dL (8.5-10.4); CARBON DIOXIDE 24 mEq/l (22-31); CHLORIDE 104 mEq/L (97-110); CREATININE 1.3 mg/dL (0.7-1.3); GLOMERULAR FILTRATION RATE 53; GLUCOSE 118 mg/dL (70-100); SODIUM 138 mEq/L (134-144)
[2016-11-27 05:49] LABS: C-REACTIVE PROTEIN 165.8 mg/L (<10.0)
[2016-11-27] MEDS: FUROSEMIDE 20 MG/2 ML VIAL IVP SCH (08:46)
[2016-11-27] MEDS: ERTAPENEM 1 GM in NS 100 ML IV SCH (08:46)
[2016-11-27] MEDS: HYDROmorphONE/DILAUDID 2 MG TAB PO PRN ×3 (08:58→23:00)
[2016-11-27] MEDS: GABAPENTIN 300 MG CAP PO SCH ×3 (08:59→22:56)
[2016-11-27] MEDS: SENNOSIDES/DOCUSATE SODIUM TAB PO SCH ×2 (09:00→22:56)
[2016-11-27] MEDS: FINASTERIDE 5 MG TAB PO SCH (09:00)
[2016-11-27] MEDS: FLURBIPROFEN PO SCH (09:00)
[2016-11-27] MEDS: METOPROLOL TARTRATE 25 MG TAB PO SCH ×2 (09:00→22:57)
--- NOTE | 2016-11-27 12:40 | HOSPPROG ---
Hospitalist Progress Note Assessment/Plan: Mr Rowland is an 81-year-old male presents with pain in the right lower extremity. He had a right knee arthroplasty end of October. Today is my first encounter with the patient/ chart reviewed. Reviewed his care with Dr Ardon. * RLE severe cellulitis no DVT per ultrasound Clindamycin 600 mg IV q 8#2, Vanco 1 gm IV q 12 #2, Ertapenem 1 gm daily #3 MRI doesn't note any gas blood cx show NGTD *CKD stage 3 *anemia will follow *Pain due to the cellulitis patient says it is better than when admitted *Plan: continue current treatment/ will discuss with ID about a surgical consult / repeat labs in a.m. Subjective: Agusto is worriend about his leg/ pain is better than when admitted. Objective: Vital Signs Temp Pulse Resp BP Pulse Ox 36.8 C 75 16 144/58 H 92 11/27/16 07:52 11/27/16 09:00 11/27/16 07:52 11/27/16 09:00 11/27/16 07:52 Laboratory Results 11/26/16 04:24 11/27/16 04:44 11/26/16 11/27/16 11/28/16 05:59 05:59 05:59 Intake Total 875 2475 Output Total 200 Balance 675 2475 - Physical Exam Constitutional: appears nourished, uncomfortable Eyes: PERRL Ears, Nose, Mouth, Throat: hard of hearing (has hearing aids in) Cardiovascular: regular rate and rhythym, systolic murmur (on left sternal border) Respiratory: no respiratory distress Gastrointestinal: normoactive bowel sounds Skin: warm, other (right lower ext purplish in color, has a large blister and mulitple bullae on anterior barajas area, warm, tender with gentle touch) Neurologic: AAOx3 Psychiatric: interacting appropriately ICD10 Worksheet Patient Problems: Problems Problem Status Onset Cellulitis of leg, right Acute Chest pain Acute Knee pain, acute Acute Osteoarthritis of right knee Acute Primary osteoarthritis of left knee Acute
[2016-11-27] MEDS: VANCOMYCIN 750 MG in D5W 150 ML IV SCH (14:52)
--- NOTE | 2016-11-27 17:31 | PCMIDPN ---
Assessment/Plan: Assessment: Right lower extremity cellulitis-the leg below the knee on the right side appears to be involved in a cellulitic process. The size of the leg is decreased from admission which is a good sign. It seems as well from history and examination that the pain levels are decreased. The knee thankfully does not appear to be involved. Plan to continue both the vancomycin and clindamycin for now. Will discontinue ertapenem and follow course. Plan: 1. Discontinue ertapenem. 2. Continue both vancomycin and clindamycin. 3. Follow appearance of the right lower extremity. 11/27/16 17:58 Subjective: Patient is resting in his hospital bed. He states it is painful to have his leg hang dependently. No fevers subjectively. Patient says that the leg is smaller than yesterday and that the redness is decreased. Objective: Vancomycin # 3 Clindamycin # 3 Ertapenem # 3 Vital Signs Temp Pulse Resp BP Pulse Ox 36.8 C 81 16 128/52 H 94 11/27/16 15:14 11/27/16 15:14 11/27/16 15:14 11/27/16 15:14 11/27/16 15:14 Laboratory Results 11/26/16 04:24 11/27/16 04:44 11/26/16 11/27/16 11/28/16 05:59 05:59 05:59 Intake Total 875 2475 400 Output Total 200 400 Balance 675 2475 0 ESR 78 MM/HR (0-20) H 11/23/16 11:32 C-Reactive Protein 165.8 mg/L (<10.0) H 11/27/16 04:44 - Physical Exam General Appearance: WD/WN, alert, no apparent distress, non-toxic Respiratory: lungs clear, normal breath sounds, No respiratory distress Cardiac/Chest: regular rate, rhythm, No tachycardia Extremities: pedal edema, inflammation, erythema, No non-tender, No normal inspection Skin: normal color, warm/dry, No rash Neuro/Psych: alert, normal mood/affect, oriented x 3 ICD10 Worksheet Patient Problems: Problems Problem Status Onset Cellulitis of leg, right Acute Chest pain Acute Knee pain, acute Acute Osteoarthritis of right knee Acute Primary osteoarthritis of left knee Acute
[2016-11-27] MEDS: ATORVASTATIN CALCIUM 10 MG TAB PO SCH (22:56)
[2016-11-28] MEDS: VANCOMYCIN 750 MG in D5W 150 ML IV SCH ×2 (03:11→14:29)
[2016-11-28] MEDS: HYDROmorphONE/DILAUDID 2 MG TAB PO PRN ×3 (05:37→17:29)
[2016-11-28] MEDS: HEPARIN 5,000 UNIT/0.5 ML SYR SC SCH ×3 (05:38→21:40)
[2016-11-28] MEDS: CLINDAMYCIN 600 MG/DEXTROSE 50 ML IV SCH ×3 (05:38→21:40)
[2016-11-28] MEDS: SENNOSIDES/DOCUSATE SODIUM TAB PO SCH ×2 (08:55→20:10)
[2016-11-28] MEDS: GABAPENTIN 300 MG CAP PO SCH ×3 (08:55→21:40)
[2016-11-28] MEDS: FINASTERIDE 5 MG TAB PO SCH (08:55)
[2016-11-28] MEDS: FUROSEMIDE 20 MG/2 ML VIAL IVP SCH (08:55)
[2016-11-28] MEDS: METOPROLOL TARTRATE 25 MG TAB PO SCH ×2 (08:55→20:10)
[2016-11-28] MEDS: FLURBIPROFEN PO SCH (08:56)
[2016-11-28] MEDS: ACETAMINOPHEN 325 MG TAB PO PRN (11:22)
--- NOTE | 2016-11-28 11:39 | PCMIDPN ---
Assessment/Plan: Assessment/Plan: * Severe right lower extremity cellulitis status post TKA: Appearance suggestive of beta-hemolytic streptococcal process. However, no cultures to guide therapy further. Clinically without evidence of TKA involvement. Expect cellulitis will be slow to resolve based on appearance and course. Will continue vancomycin and clindamycin with clindamycin being utilized to provide additional activity against toxin production. Repeat basic metabolic profile in a.m. to follow renal function with ongoing vancomycin use. Continue lower extremity elevation. Culture obtained from fluid draining from blister today although likely to be of low yield. 11/28/16 11:35 Subjective: Patient with persistent right lower extremity pain primarily over barajas. No pain with range of motion of knee. Feels like things are slightly improved. Objective: Vital Signs Temp Pulse Resp BP Pulse Ox 36.8 C 68 14 118/51 L 100 11/28/16 07:26 11/28/16 07:26 11/28/16 07:26 11/28/16 07:26 11/28/16 07:26 Laboratory Results 11/26/16 04:24 11/27/16 04:44 11/27/16 11/28/16 11/29/16 05:59 05:59 05:59 Intake Total 2475 1000 Output Total 960 1 Balance 2475 40 -1 ESR 78 MM/HR (0-20) H 11/23/16 11:32 C-Reactive Protein 165.8 mg/L (<10.0) H 11/27/16 04:44 Vancomycin # 4 Clindamycin # 4 Blood cultures no growth - Physical Exam General Appearance: alert, no apparent distress EENT: No thrush, No conjunctival petechiae Respiratory: lungs clear, No respiratory distress Cardiac/Chest: regular rate, rhythm Extremities: inflammation (Right lower extremity with erythema over anterior barajas with scattered hemorrhagic bulla; serous fluid leaking from 1 bulla; significant tenderness to palpation without fluctuance; TKA incision well healed without erythema or drainage and discontinuous from area of cellulitis) Abdomen: non-tender, No distended Skin: No embolic lesions ICD10 Worksheet Patient Problems: Problems Problem Status Onset Cellulitis of leg, right Acute Chest pain Acute Knee pain, acute Acute Osteoarthritis of right knee Acute Primary osteoarthritis of left knee Acute
--- NOTE | 2016-11-28 16:17 | HOSPPROG ---
Hospitalist Progress Note Assessment/Plan: Mr Rowland is an 81-year-old male presents with pain in the right lower extremity. He had a right knee arthroplasty end of October. * RLE severe cellulitis no DVT per ultrasound Clindamycin 600 mg IV q 8#3, Vanco 1 gm IV q 12 #3, Ertapenem dc today MRI doesn't note any gas blood cx show NGTD leg is looking better today *CKD stage 3 *anemia will follow *Pain due to the cellulitis patient says it is better than when admitted *Plan: continue current treatment. Had been on IV lasix for fluid overload. Will hold this and monitor. Repeat labs in a.m. Subjective: Agusto is feeling much better today, more hopeful. Objective: Vital Signs Temp Pulse Resp BP Pulse Ox 36.6 C 84 18 142/53 H 91 L 11/28/16 15:52 11/28/16 15:52 11/28/16 15:52 11/28/16 15:52 11/28/16 15:52 Microbiology 11/28/16 11:30 Gram Stain - Final Leg - Swab Laboratory Results 11/26/16 04:24 11/27/16 04:44 11/27/16 11/28/16 11/29/16 05:59 05:59 05:59 Intake Total 2475 1000 205 Output Total 960 1 Balance 2475 40 204 - Physical Exam Constitutional: no apparent distress, appears nourished Eyes: PERRL Ears, Nose, Mouth, Throat: hearing normal Cardiovascular: regular rate and rhythym, systolic murmur Respiratory: no respiratory distress Gastrointestinal: normoactive bowel sounds Skin: warm, other (right lower ext with less swelling, still warm, has a large blister on the anterior barajas area) Musculoskeletal: muscular tenderness Neurologic: AAOx3 Psychiatric: interacting appropriately ICD10 Worksheet Patient Problems: Problems Problem Status Onset Cellulitis of leg, right Acute Chest pain Acute Knee pain, acute Acute Osteoarthritis of right knee Acute Primary osteoarthritis of left knee Acute
[2016-11-28] MEDS: ATORVASTATIN CALCIUM 10 MG TAB PO SCH (20:10)
[2016-11-29] MEDS: VANCOMYCIN 750 MG in D5W 150 ML IV SCH ×2 (01:35→15:41)
[2016-11-29 04:47] LABS: % IMMATURE GRANULYOCYTES 0.5 % (0.0-1.1); ABSOLUTE IMMATURE GRANULOCYTES 0.03 10^3/uL (0.00-0.10); ADD DIFF? NO; ADD MORPH? NO; ADD SCAN? NO; ATYPICAL LYMPHOCYTE FLAG 0 (0-99); FRAGMENT RBC FLAG 0 (0-99); HEMATOCRIT 27.3 % (40.0-51.0); LEFT SHIFT FLG 0 (0-99); LIPEMIA HEMOLYSIS FLAG 80 (0-99); MEAN CELL HEMOGLOBIN 31.5 pg (27.9-34.1); MEAN CELL VOLUME 95.5 fL (81.5-99.8); MEAN PLATELET VOLUME 8.7 fL (8.7-11.7); PLATELET CLUMPS FLAG 20 (0-99); PLATELET COUNT 247 10^3/uL (150-400); RED BLOOD CELL COUNT 2.86 10^6/uL (4.40-6.38); RED CELL DISTRIBUTION WIDTH 12.9 % (11.5-15.2)
[2016-11-29 05:01] LABS: ALANINE AMINOTRANSFERASE 75 IU/L (21-72); ALBUMIN 2.8 g/dL (3.5-5.0); ALKALINE PHOSPHATASE 116 IU/L (38-126); ANION GAP 9 mEq/L (8-16); ASPARTATE AMINOTRANSFERASE 73 IU/L (17-59); BILIRUBIN,TOTAL 0.8 mg/dL (0.1-1.4); CARBON DIOXIDE 24 mEq/l (22-31); CHLORIDE 102 mEq/L (97-110); CREATININE 1.3 mg/dL (0.7-1.3); GLOMERULAR FILTRATION RATE 53; GLUCOSE 116 mg/dL (70-100); POTASSIUM 4.3 mEq/L (3.5-5.2); SODIUM 135 mEq/L (134-144); TOTAL PROTEIN 5.2 g/dL (6.3-8.2)
[2016-11-29] MEDS: HEPARIN 5,000 UNIT/0.5 ML SYR SC SCH ×3 (05:57→21:22)
[2016-11-29] MEDS: CLINDAMYCIN 600 MG/DEXTROSE 50 ML IV SCH (05:57)
--- NOTE | 2016-11-29 10:20 | PCMIDPN ---
Assessment/Plan: Assessment/Plan: * Severe right lower extremity cellulitis status post TKA: Appearance suggestive of beta-hemolytic streptococcal process. Culture from bullous lesion no growth to date. Slow clinical improvement with decreased edema and intensity of erythema. Anticipate slow resolution. Will discontinue clindamycin as suspect benefit has been achieved. Continue vancomycin. Will repeat trough assessment today as may start accumulate based on underlying renal insufficiency and age. Continue leg elevation. * Left lower extremity pain: Unclear etiology. History of gout and this may be early symptomatology from gout although no findings apparent clinically. * Diarrhea: Will stop clindamycin as this could be contributing. If persistent /more prominent, will assess for C difficile but will hold off for now based on clinical findings. 11/29/16 10:17 11/29/16 10:18 11/29/16 10:20 Subjective: Patient complains of persistent pain in right lower extremity although slightly less intense. Complains of left lower extremity pain. Prior history of gout. Complains of diarrhea x2 this a.m. Objective: Vital Signs Temp Pulse Resp BP Pulse Ox 36.8 C 85 16 136/75 H 90 L 11/29/16 08:00 11/29/16 08:00 11/29/16 08:00 11/29/16 08:00 11/29/16 08:00 Microbiology 11/28/16 11:30 Gram Stain - Final Leg - Swab Laboratory Results 11/29/16 04:25 11/29/16 04:25 11/28/16 11/29/16 11/30/16 05:59 05:59 05:59 Intake Total 1000 405 250 Output Total 960 501 Balance 40 -96 250 ESR 78 MM/HR (0-20) H 11/23/16 11:32 C-Reactive Protein 165.8 mg/L (<10.0) H 11/27/16 04:44 Vancomycin # 5 Clindamycin # 5 Cultures from bullous drainage Gram stain negative with no growth today - Physical Exam General Appearance: alert, no apparent distress EENT: dry mucous membranes, No thrush Cardiac/Chest: regular rate, rhythm, systolic murmur (2/6 left upper and right upper sternal borders) Extremities: inflammation (Right lower extremity with less intense erythema and decreased edema; anterior bulla without significant change; tenderness remains prominent but overall decreased; left ankle without irritability or erythema) Abdomen: non-tender, No distended ICD10 Worksheet Patient Problems: Problems Problem Status Onset Cellulitis of leg, right Acute Chest pain Acute Knee pain, acute Acute Osteoarthritis of right knee Acute Primary osteoarthritis of left knee Acute
[2016-11-29] MEDS: ACETAMINOPHEN 325 MG TAB PO PRN (10:47)
[2016-11-29] MEDS: FINASTERIDE 5 MG TAB PO SCH (10:47)
[2016-11-29] MEDS: SENNOSIDES/DOCUSATE SODIUM TAB PO SCH ×2 (10:47→21:18)
[2016-11-29] MEDS: GABAPENTIN 300 MG CAP PO SCH ×3 (10:47→21:18)
[2016-11-29] MEDS: METOPROLOL TARTRATE 25 MG TAB PO SCH ×2 (10:47→21:18)
[2016-11-29] MEDS: FLURBIPROFEN PO SCH (10:51)
--- NOTE | 2016-11-29 11:21 | HOSPPROG ---
Hospitalist Progress Note Assessment/Plan: Mr Rowland is an 81-year-old male presents with pain in the right lower extremity. He had a right knee arthroplasty end of October. * RLE severe cellulitis no DVT per ultrasound Vanco 1 gm IV q 12 #4 MRI doesn't note any gas blood cx show NGTD leg is looking better today *diarrhea no c/o this during my assessment *confusion/delirium have explained to his that being in the hospital has contributed to this avoid narcotics, scheduled tylenol for the pain keep curtains open during the day *CKD stage 3 *anemia will follow *Pain due to the cellulitis scheduled tylenol *Plan: continue current care/ updated ways to help with his confusion Subjective: Agusto said his leg is painful. Objective: Vital Signs Temp Pulse Resp BP Pulse Ox 36.8 C 82 16 136/75 H 90 L 11/29/16 08:00 11/29/16 10:47 11/29/16 08:00 11/29/16 10:46 11/29/16 08:00 Microbiology 11/28/16 11:30 Gram Stain - Final Leg - Swab Laboratory Results 11/29/16 04:25 11/29/16 04:25 11/28/16 11/29/16 11/30/16 05:59 05:59 05:59 Intake Total 1000 405 250 Output Total 960 501 Balance 40 -96 250 - Physical Exam Constitutional: uncomfortable Eyes: PERRL Ears, Nose, Mouth, Throat: hearing normal Cardiovascular: regular rate and rhythym, systolic murmur Respiratory: no respiratory distress Gastrointestinal: normoactive bowel sounds Skin: warm, other (right lower ext with large blister that is oozing yellow drainage, warm, tender to the touch/red) Musculoskeletal: muscular tenderness, generalized weakness Neurologic: other (alert and oriented to himself, and why he is here, confused on place) Psychiatric: interacting appropriately, poor memory ICD10 Worksheet Patient Problems: Problems Problem Status Onset Cellulitis of leg, right Acute Chest pain Acute Knee pain, acute Acute Osteoarthritis of right knee Acute Primary osteoarthritis of left knee Acute
[2016-11-29] MEDS ORDERED: HYDROmorphONE/DILAUDID 2 MG TAB PO PRN (15:32)
[2016-11-29] MEDS: ACETAMINOPHEN 500 MG TAB PO SCH ×2 (17:39→21:17)
[2016-11-29] MEDS: ATORVASTATIN CALCIUM 10 MG TAB PO SCH (21:18)
[2016-11-29] MEDS ORDERED: traZODone 50 MG TAB PO PRN (22:56)
[2016-11-30] MEDS: VANCOMYCIN 750 MG in D5W 150 ML IV SCH ×2 (02:43→15:23)
[2016-11-30] MEDS: HEPARIN 5,000 UNIT/0.5 ML SYR SC SCH ×3 (05:51→20:40)
[2016-11-30] MEDS: GABAPENTIN 300 MG CAP PO SCH ×3 (09:27→20:30)
[2016-11-30] MEDS: ACETAMINOPHEN 500 MG TAB PO SCH ×3 (09:28→20:31)
[2016-11-30] MEDS: FINASTERIDE 5 MG TAB PO SCH (09:28)
[2016-11-30] MEDS: METOPROLOL TARTRATE 25 MG TAB PO SCH ×2 (09:30→20:26)
[2016-11-30] MEDS: SENNOSIDES/DOCUSATE SODIUM TAB PO SCH ×2 (09:34→20:41)
[2016-11-30] MEDS: FLURBIPROFEN PO SCH (09:35)
[2016-11-30] MEDS ORDERED: ALTEPLASE 2 MG VIAL IVP PRN (15:22)
--- NOTE | 2016-11-30 15:28 | HOSPPROG ---
Hospitalist Progress Note Assessment/Plan: Mr Rowland is an 81-year-old male presents with pain in the right lower extremity. He had a right knee arthroplasty end of October. * RLE severe cellulitis no DVT per ultrasound Vanco 1 gm IV q 12 #5 MRI doesn't note any gas blood cx show NGTD leg is looking better today *diarrhea no c/o this during my assessment *confusion/delirium improved significantly *insomnia trazodone ordered last night without improvement his said he take Tylenol PM every night to sleep/ ordered scheduled Benadryl qHS *CKD stage 3 *anemia will follow *Pain due to the cellulitis scheduled tylenol *Plan: reviewed his care with Dr Pope, single-lumen PICC ordered. Reviewed w patients risk and benefits of the PICC. Will start Benadryl to help him sleep since this is what he has been using at home. Subjective: Agusto is feeling better today. Objective: Vital Signs Temp Pulse Resp BP Pulse Ox 36.7 C 92 16 142/59 H 91 L 11/30/16 07:53 11/30/16 09:30 11/30/16 07:53 11/30/16 09:30 11/30/16 07:53 Microbiology 11/28/16 11:30 Gram Stain - Final Leg - Swab Laboratory Results 11/29/16 04:25 11/29/16 04:25 11/29/16 11/30/16 12/01/16 05:59 05:59 05:59 Intake Total 405 1150 150 Output Total 501 100 300 Balance -96 1050 -150 - Physical Exam Constitutional: chronically ill appearing Eyes: PERRL Ears, Nose, Mouth, Throat: hearing normal Cardiovascular: regular rate and rhythym Respiratory: no respiratory distress Gastrointestinal: normoactive bowel sounds Skin: other (right lower ext w less swelling, less warmth. steadily improving.) Musculoskeletal: generalized weakness (very weak) Neurologic: AAOx3, other (much clearer today/ oriented to person, place, time and situation) Psychiatric: interacting appropriately, not anxious ICD10 Worksheet Patient Problems: Problems Problem Status Onset Cellulitis of leg, right Acute Chest pain Acute Knee pain, acute Acute Osteoarthritis of right knee Acute Primary osteoarthritis of left knee Acute
--- NOTE | 2016-11-30 16:22 | PCMIDPN ---
Assessment/Plan: Assessment/Plan: * Severe right lower extremity cellulitis status post TKA: Significant improvement today. Erythema significantly decreased as is pain. Continue vancomycin with anticipated 10-14 day course given severity of clinical findings. * Left lower extremity pain: Resolved. * Diarrhea: Improved after stopping clindamycin. 11/30/16 16:20 Subjective: Less right lower extremity pain. Left lower extremity pain resolved. Objective: Vital Signs Temp Pulse Resp BP Pulse Ox 36.7 C 61 16 113/60 92 11/30/16 15:29 11/30/16 15:29 11/30/16 15:29 11/30/16 15:29 11/30/16 15:29 Microbiology 11/28/16 11:30 Gram Stain - Final Leg - Swab Laboratory Results 11/29/16 04:25 11/29/16 04:25 11/29/16 11/30/16 12/01/16 05:59 05:59 05:59 Intake Total 405 1150 150 Output Total 501 100 300 Balance -96 1050 -150 ESR 78 MM/HR (0-20) H 11/23/16 11:32 C-Reactive Protein 165.8 mg/L (<10.0) H 11/27/16 04:44 Vancomycin # 6 Laboratory Tests 11/27/16 11/29/16 12:30 14:25 Vancomycin Trough 15.2 10.9 - Physical Exam General Appearance: alert, no apparent distress EENT: No scleral icterus Extremities: inflammation (Right lower extremity erythema significantly decreased with decreasing edema; tenderness markedly decreased; bullous lesion without significant change; no tenderness or swelling of left lower extremity) Abdomen: non-tender, No distended ICD10 Worksheet Patient Problems: Problems Problem Status Onset Cellulitis of leg, right Acute Chest pain Acute Knee pain, acute Acute Osteoarthritis of right knee Acute Primary osteoarthritis of left knee Acute
[2016-11-30] MEDS: ATORVASTATIN CALCIUM 10 MG TAB PO SCH (20:27)
[2016-11-30] MEDS ORDERED: diphenhydrAMINE 25 MG CAP PO SCH (21:00)
[2016-12-01] MEDS: VANCOMYCIN 750 MG in D5W 150 ML IV SCH ×2 (03:46→13:15)
[2016-12-01] MEDS: HEPARIN 5,000 UNIT/0.5 ML SYR SC SCH ×2 (05:18→13:15)
[2016-12-01 07:33] VITALS: RESP 18; TEMP 98.3; O2SAT 90
[2016-12-01] MEDS: ACETAMINOPHEN 500 MG TAB PO SCH ×2 (10:04→15:36)
[2016-12-01] MEDS: FLURBIPROFEN PO SCH (10:05)
[2016-12-01] MEDS: GABAPENTIN 300 MG CAP PO SCH ×2 (10:05→15:36)
[2016-12-01] MEDS: SENNOSIDES/DOCUSATE SODIUM TAB PO SCH (10:05)
[2016-12-01] MEDS: FINASTERIDE 5 MG TAB PO SCH (10:06)
[2016-12-01] MEDS: METOPROLOL TARTRATE 25 MG TAB PO SCH (10:07)
[2016-12-01 10:14] VITALS: BP 134/58; PULSE 85
--- NOTE | 2016-12-01 10:17 | HOSPPROG ---
Hospitalist Progress Note Assessment/Plan: Mr Rowland is an 81-year-old male presents with pain in the right lower extremity. He had a right knee arthroplasty end of October. * RLE severe cellulitis no DVT per ultrasound Vanco 1 gm IV q 12 #5 MRI doesn't note any gas blood cx show NGTD slow but steady improvement *diarrhea no c/o this during my assessment *confusion/delirium resolved *insomnia trazodone ordered last night without improvement his said he take Tylenol PM every night to sleep/ ordered scheduled Benadryl qHS this resolved along with his confusion when Benadryl resumed *CKD stage 3 *anemia will follow *Pain due to the cellulitis scheduled Tylenol *Plan:PICC in place/likely dc this afternoon after evaluated by ID Subjective: Agusto is feeling much better today. Objective: Vital Signs Temp Pulse Resp BP Pulse Ox 36.8 C 85 18 134/58 H 90 L 12/01/16 07:30 12/01/16 10:07 12/01/16 07:30 12/01/16 10:07 12/01/16 07:30 Microbiology 11/25/16 13:39 Blood Culture - Final Blood 11/25/16 13:47 Blood Culture - Final Blood 11/28/16 11:30 Gram Stain - Final Leg - Swab Laboratory Results 11/29/16 04:25 11/29/16 04:25 11/30/16 12/01/16 12/02/16 05:59 05:59 05:59 Intake Total 1150 1300 Output Total 100 300 275 Balance 1050 1000 -275 - Physical Exam Constitutional: no apparent distress, appears nourished, not in pain Eyes: PERRL Ears, Nose, Mouth, Throat: hearing normal Cardiovascular: regular rate and rhythym, systolic murmur Respiratory: no respiratory distress Gastrointestinal: normoactive bowel sounds Skin: warm, other (right lower extremity w redness/erythema/ blister is smaller / overall looks improved) Musculoskeletal: generalized weakness Neurologic: AAOx3 Psychiatric: interacting appropriately, not encephalopathic ICD10 Worksheet Patient Problems: Problems Problem Status Onset Cellulitis of leg, right Acute Chest pain Acute Knee pain, acute Acute Osteoarthritis of right knee Acute Primary osteoarthritis of left knee Acute
--- NOTE | 2016-12-01 13:39 | PCMIDPN ---
Assessment/Plan: Assessment/Plan: * Severe right lower extremity cellulitis status post TKA: Continued significant improvement. Given clinical course and appearance, think this is most likely due to streptococcal process. Given risk of nephrotoxicity with vancomycin, will change to ceftriaxone to complete additional 7 days of IV antibiotics. Will have follow-up in my office next week for repeat assessment. * Left lower extremity pain: Resolved. * Diarrhea: Continues to improve after stopping clindamycin. 12/01/16 13:37 Subjective: Patient with significant decrease in right lower extremity pain. No further left lower extremity pain. Objective: Vital Signs Temp Pulse Resp BP Pulse Ox 36.8 C 85 18 134/58 H 90 L 12/01/16 07:30 12/01/16 10:07 12/01/16 07:30 12/01/16 10:07 12/01/16 07:30 Microbiology 11/28/16 11:30 Gram Stain - Final Leg - Swab Wound Culture - Final 11/25/16 13:39 Blood Culture - Final Blood 11/25/16 13:47 Blood Culture - Final Blood Laboratory Results 11/29/16 04:25 11/29/16 04:25 11/30/16 12/01/16 12/02/16 05:59 05:59 05:59 Intake Total 1150 1300 Output Total 100 300 275 Balance 1050 1000 -275 ESR 78 MM/HR (0-20) H 11/23/16 11:32 C-Reactive Protein 165.8 mg/L (<10.0) H 11/27/16 04:44 Vancomycin # 7 - Physical Exam General Appearance: alert, no apparent distress EENT: No thrush Extremities: inflammation (Left lower extremity erythema significantly decreased with decreasing edema; tenderness markedly decreased; bulla starting to deflate) Abdomen: non-tender, No distended ICD10 Worksheet Patient Problems: Problems Problem Status Onset Cellulitis of leg, right Acute Chest pain Acute Knee pain, acute Acute Osteoarthritis of right knee Acute Primary osteoarthritis of left knee Acute
--- NOTE | 2016-12-01 13:42 | PDIAF ---
- Diagnosis Diagnosis: Right lower extremity cellulitis Code Status: Full Code - Medication Management Discharge Medications: Medications to Continue on Transfer Finasteride [Proscar 5 MG (*)] 5 mg PO DAILY10 11/23/12 [Last Taken 11/19/16] Atorvastatin Calcium [Lipitor 10 mg (*)] 10 mg PO HS 08/09/13 [Last Taken ] Metoprolol Tartrate [Lopressor 25 mg (*)] 25 mg PO BID 08/09/13 [Last Taken ] Flurbiprofen 50 mg PO DAILY 11/14/16 [Last Taken 11/14/16] Gabapentin [Neurontin] 600 mg PO TID 11/14/16 [Last Taken 11/19/16] amLODIPine BESYLATE [Norvasc 2.5 mg (*)] 2.5 mg PO DAILY 11/14/16 [Last Taken ] Acetaminophen [Tylenol 325mg (*)] 650 mg PO Q6HRS #0 tab 11/20/16 [Last Taken Unknown] Aspirin [Aspirin 325 mg (*)] 325 mg PO DAILY #21 tab 11/20/16 [Last Taken ] oxyCODONE IR [Oxycodone Ir (*)] 5 - 10 mg PO Q3HRS PRN #0 tab 11/20/16 [Last Taken 11/22/16] traMADol [Ultram 50 mg (*)] 50 mg PO Q6HRS PRN #0 tab 11/20/16 [Last Taken 11/23] Residential Antibiotics: Ceftriaxone 2 g IV Q 24 hours [employer] Lead Antibiotic Stop Date: 12/09/16 Discharge Medications: Refer to the Discharge Home Medication list for PRN reason. PICC Care - Routine: Yes - Labs/Radiology CBC Date: 12/04/16 CMP Date: 12/04/16 Call or Fax Lab and Imaging Results to: Dr. Pope, - Follow Up Care Current Providers and Referrals: Vlad Martinez MD [Primary Care Provider] - As per Instructions Shar Pope MD [Medical Doctor] - 12/09/16 2:00 pm
[2016-12-01] MEDS ORDERED: cefTRIAXone 2 GM in D5W 50 ML IV SCH (14:00)
--- NOTE | 2016-12-01 14:44 | PDIAF ---
- Diagnosis Diagnosis: Right lower extremity cellulitis Code Status: Full Code - Medication Management Discharge Medications: Medications to Continue on Transfer Finasteride [Proscar 5 MG (*)] 5 mg PO DAILY10 11/23/12 [Last Taken 11/19/16] Atorvastatin Calcium [Lipitor 10 mg (*)] 10 mg PO HS 08/09/13 [Last Taken ] Metoprolol Tartrate [Lopressor 25 mg (*)] 25 mg PO BID 08/09/13 [Last Taken ] Flurbiprofen 50 mg PO DAILY 11/14/16 [Last Taken 11/14/16] Gabapentin [Neurontin] 600 mg PO TID 11/14/16 [Last Taken 11/19/16] amLODIPine BESYLATE [Norvasc 2.5 mg (*)] 2.5 mg PO DAILY 11/14/16 [Last Taken ] Acetaminophen [Tylenol 325mg (*)] 650 mg PO Q6HRS #0 tab 11/20/16 [Last Taken Unknown] Aspirin [Aspirin 325 mg (*)] 325 mg PO DAILY #21 tab 11/20/16 [Last Taken ] oxyCODONE IR [Oxycodone Ir (*)] 5 - 10 mg PO Q3HRS PRN #0 tab 11/20/16 [Last Taken 11/22/16] traMADol [Ultram 50 mg (*)] 50 mg PO Q6HRS PRN #0 tab 11/20/16 [Last Taken 11/23] Acetaminophen [Tylenol ES 500 mg (*)] 1,000 mg PO TID tab 12/01/16 [Last Taken Unknown] Bisacodyl [Bisacodyl (*)] 5 mg PO PRN PRN #0 tab 12/01/16 [Last Taken Unknown] Polyethylene Glycol 3350 [Miralax 17 gm (*)] 17 gm PO DAILY PRN #0 pkt 12/01/16 [Last Taken Unknown] Sennosides/Docusate Sodium [Senokot-S] 1 - 2 tab PO BID tab 12/01/16 [Last Taken Unknown] cefTRIAXone [Rocephin] 2 gm IV DAILY vial 12/01/16 [Last Taken Unknown] diphenhydrAMINE [Benadryl 25 MG (*)] 25 mg PO HS cap 12/01/16 [Last Taken Unknown] Stock Parts Inspector Antibiotics: Ceftriaxone 2 g IV Q 24 hours [facility] Antibiotic Stop Date: 12/09/16 Discharge Medications: Refer to the Discharge Home Medication list for PRN reason. PICC Care - Routine: Yes - Orders Services needed: Physical Therapy, Occupational Therapy Diet Recommendation: no restrictions on diet Diet Texture: Regular Texture Diet - Labs/Radiology CBC Date: 12/04/16 CMP Date: 12/04/16 Call or Fax Lab and Imaging Results to: Dr. Pope, - Follow Up Care Current Providers and Referrals: Vlad Martinez MD [Primary Care Provider] - As per Instructions Shar Pope MD [Medical Doctor] - 12/09/16 2:00 pm
--- NOTE | 2016-12-01 17:23 | GDS ---
[f rep st] DISCHARGE SUMMARY DISCHARGE DIAGNOSES: 1. Severe right lower extremity cellulitis. 2. Diarrhea. 3. Delirium and associated confusion. 4. Insomnia. 5. Chronic kidney disease, stage 3. 6. Anemia. CONSULTATIONS: Alison Reeder MD. HISTORY OF PRESENT ILLNESS: Briefly, the patient is an 81-year-old male with a past medical history of hypertension, dyslipidemia, prostate cancer, as well as a right bundle branch block. He recently had a total knee arthroplasty done on November 19, 2016. After surgery, he did go home, but was having more pain by the end of the week, and started having some chills. He then started to notice he had redness involving his foot and leg. He came to the emergency room for further evaluation. Blood cultures were checked, and had no growth. He was seen and evaluated by Dr. Girard, who noted there was no evidence of a septic knee, but this was a separate infection. He had a lower extremity MRI performed, which showed extensive cellulitis of the right lower extremity, with no evidence of osteomyelitis, abscess or necrotizing fasciitis. He was treated with vancomycin. This was changed to ceftriaxone today to get 7 more days of IV antibiotics. His infection looks streptococcal in appearance. Also, of note, the patient developed some confusion, as well as delirium during his stay. He was not able to sleep. In further discussion with his , he takes Tylenol PM every night, which helps him sleep; this was resumed. He slept well through the night. His delirium and confusion resolved. 1. Extensive right lower extremity cellulitis. An ultrasound performed that shows no DVT. Blood culture shows no growth. He has had slow, but steady improvement. He will go to the long-term facility for care. 2. Diarrhea. None further. 3. Confusion, delirium, resolved. 4. Insomnia, resolved. 5. Chronic kidney disease, stage 3, to be monitored at the long-term facility. 6. Anemia, stable. 7. Pain. He is on scheduled Tylenol, which has helped. PENDING LABS AND TESTS: None. CONDITION AT DISCHARGE: Stable. Blood pressure is 134/58, heart rate is 75, respiratory rate is 18, O2 saturations on room air 92%, temperature 36.8 Celsius. MEDICATIONS AT DISCHARGE: Please see the EMR. DISCHARGE INSTRUCTIONS: 1. To follow up with Dr. Pope. 2. To continue IV antibiotics for the next 7 days. 3. If he develops fever, chills, chest pain or shortness of breath, return to the ER. Greater than 30 minutes discharging and coordinating care. Copy requested to: Dr. Pope /[id number]/MODL MTDD
== END 2016-12-01 16:46 | DRG 603 ==
LOC: INTOOBSV 12:27 → F3N 14:30 → OBSVTOIN 11-24 12:42 → F3N 11-29 09:25
PROVIDERS: ADMIT Internal Medicine; ATTEND Internal Medicine
PROC: 02HV33Z Insertion of Infusion Device into Superior Vena Cava, Percutaneous Approach (ICD-10-PCS; principal; 2016-12-01)
DX: L03.113 Cellulitis of right upper limb (principal); R19.7 Diarrhea, unspecified; G47.00 Insomnia, unspecified; I12.9 Hypertensive chronic kidney disease with stage 1 through stage 4 chronic kidney disease, or unspecified chronic kidney disease; N18.3 Chronic kidney disease, stage 3 (moderate); D64.9 Anemia, unspecified; Z85.46 Personal history of malignant neoplasm of prostate; Z96.653 Presence of artificial knee joint, bilateral
CPT/HCPCS: 96365; 97110-GP; 97116-GP; 97162-GP; 97530-GP; A9585; C1751; G0378; G8978-GP-CK; G8979-GP-CI; J0696; J1170; J1335; J1940; J3370

== ENCOUNTER → 2017-04-01 | Outpatient (CLI) | payer OTHER | LOC: FIMAGING 08:15 | PROVIDERS: ATTEND Psychiatry & Neurology Neurology | DX: R26.81 Unsteadiness on feet (principal); R42 Dizziness and giddiness ==

== ENCOUNTER → 2017-05-19 | Outpatient (CLI) | payer OTHER | LOC: FIMAGING 11:10 | PROVIDERS: ATTEND Psychiatry & Neurology Neurology | DX: M47.812 Spondylosis without myelopathy or radiculopathy, cervical region (principal); M46.92 Unspecified inflammatory spondylopathy, cervical region; M48.02 Spinal stenosis, cervical region; M46.95 Unspecified inflammatory spondylopathy, thoracolumbar region ==

== ENCOUNTER 2017-06-02 10:13 | Inpatient (IN) | payer OTHER ==
[2017-06-02] MEDS ORDERED: ACETAMINOPHEN 500 MG TAB PO ONE (10:30)
[2017-06-02] MEDS ORDERED: ceFAZolin 2 GM/SWFI 2 GM/20 ML SYR IVP ONE (10:30)
[2017-06-02] MEDS ORDERED: LR 1,000 ML IV ONE (10:32)
[2017-06-02 11:11] LABS: % IMMATURE GRANULYOCYTES 0.4 % (0.0-1.1); ABSOLUTE IMMATURE GRANULOCYTES 0.02 10^3/uL (0.00-0.10); ADD DIFF? NO; ADD MORPH? NO; ADD SCAN? NO; ATYPICAL LYMPHOCYTE FLAG 0 (0-99); FRAGMENT RBC FLAG 0 (0-99); HEMATOCRIT 35.2 % (40.0-51.0); HEMOGLOBIN 12.4 g/dL (13.7-17.5); LEFT SHIFT FLG 0 (0-99); LIPEMIA HEMOLYSIS FLAG 90 (0-99); MEAN CELL HEMOGLOBIN 34.5 pg (27.9-34.1); MEAN CELL HEMOGLOBIN CONCENTR. 35.2 g/dL (32.4-36.7); MEAN CELL VOLUME 98.1 fL (81.5-99.8); MEAN PLATELET VOLUME 8.7 fL (8.7-11.7); PLATELET CLUMPS FLAG 20 (0-99); PLATELET COUNT 139 10^3/uL (150-400); RED BLOOD CELL COUNT 3.59 10^6/uL (4.40-6.38); RED CELL DISTRIBUTION WIDTH 12.8 % (11.5-15.2)
--- NOTE | 2017-06-02 13:08 | PDHPUP ---
History & Physical Update H&P update statement: This history and physical update is based on an assessment of the patient which was completed after admission or registration (within 24 hours), but prior to the surgery/procedure. H&P update: no change in patient's condition since H&P completed
[2017-06-02] MEDS ORDERED: TRANEXAMIC ACID 1,000 MG in NS 100 ML IV ONE (13:10)
[2017-06-02] MEDS ORDERED: MIDAZOLAM 2 MG/2 ML VIAL IVP ONE (13:11)
--- NOTE | 2017-06-02 13:19 | PDANEPAE ---
ANE History of Present Illness cervicl spine stenosis ANE Past Medical History - Cardiovascular History Hx Hypertension: Yes Hx Arrhythmias: No Hx Chest Pain: No Hx Coronary Artery / Peripheral Vascular Disease: No Hx CHF / Valvular Disease: No Hx Palpitations: No Cardiovascular History Comment: sees Dr. Plunkett - Pulmonary History Hx COPD: No Hx Asthma/Reactive Airway Disease: No Hx Recent Upper Respiratory Infection: No Hx Oxygen in Use at Home: No Hx Sleep Apnea: No Sleep Apnea Screening Result - Last Documented: Negative - Neurologic History Hx Cerebrovascular Accident: No Hx Seizures: No Hx Dementia: No - Endocrine History Hx Diabetes: No - Renal History Hx Renal Disorders: No - Liver History Hx Hepatic Disorders: No - Neurological & Psychiatric Hx Hx Neurological and Psychiatric Disorders: Yes Neurological / Psychiatric History Comment: stenosis cervical spine,problems w/ stability. Nerve damage in feet-on Gabapentin. - Cancer History Hx Cancer: Yes Cancer History Comment: PROSTATE 2006 - Congenital Disorder History Hx Congenital Disorders: No - GI History Hx Gastrointestinal Disorders: No - Other Health History Other Health History: R leg cellulitis summer-F/U with Antibx by Dr Pope. wears glasses. bilateral hearing aides - Chronic Pain History Chronic Pain: No (osteoarthritis) - Surgical History Prior Surgeries: R total knee -. 08/17/13 left TKA with [place]. 11/2012 and 12/2012 CAROTID ENDARECTOMY. BILATERAL with [place]. 06/17/13 ARTHROSCOPIC LEFT KNEE. BILATERAL CATARACTS 2005. CRYOGENIC ABLATION OF PROSTATE 2007 ANE Review of Systems Review of Systems: - Exercise capacity METS (RN): 4 METS ANE Patient History - Allergies Allergies/Adverse Reactions: ibuprofen Allergy (Severe, Verified 06/01/17 13:56) Unknown - Home Medications Home Medications: Finasteride [Proscar 5 MG (*)] 5 mg PO DAILY10 11/23/12 [Last Taken 06/02/17] Atorvastatin Calcium [Lipitor 10 mg (*)] 10 mg PO HS 08/09/13 [Last Taken ] Metoprolol Tartrate [Lopressor 25 mg (*)] 25 mg PO BID 08/09/13 [Last Taken 06/07] Flurbiprofen 50 mg PO DAILY 11/14/16 [Last Taken 06/01/17] Gabapentin [Neurontin] 600 mg PO TID 11/14/16 [Last Taken 06/02/17] amLODIPine BESYLATE [Norvasc 2.5 mg (*)] 2.5 mg PO DAILY 11/14/16 [Last Taken ] Oxycodone HCl 06/01/17 [Last Taken 06/02/17] Tylenol PM (*) 06/01/17 [Last Taken 06/01/17] - NPO status NPO Status: no food or drink >8 hours NPO Since - Liquids (Date): 06/02/17 NPO Since - Liquids (Time): 08:00 NPO Since - Solids (Date): 06/01/17 NPO Since - Solids (Time): 19:30 - Smoking Hx Smoking Status: Former smoker - Family Anes Hx Family Hx Anesthesia Complications: none ANE Labs/Vital Signs - Labs Result Diagrams: 06/02/17 11:00 - Vital Signs Vital Signs: reviewed preoperatively; see RN documention for details Blood Pressure: 172/80 Heart Rate: 62 Respiratory Rate: 94 Height: 182.88 cm Weight: 88.451 kg ANE Physical Exam - Airway Neck exam: decreased ROM Mallampati Score: Class 3 Mouth exam: normal dental/mouth exam - Pulmonary Pulmonary: no respiratory distress - Cardiovascular Cardiovascular: regular rate and rhythym - ASA Status ASA Status: III ANE Anesthesia Plan Anesthesia Plan: general endotracheal anesthesia
[2017-06-02] MEDS ORDERED: THROMBIN (BOVINE) 5,000 UNIT VIAL TP ONE ×2 (13:24→17:47)
[2017-06-02] MEDS ORDERED: CHLORHEXIDINE GLUC HIBICLENS 118 ML BTL TP ONE (13:24)
[2017-06-02] MEDS ORDERED: BUPIVACAINE 0.25% 30 ML SDV ONE ×3 (13:25→18:16)
[2017-06-02] MEDS ORDERED: BACITRACIN 50,000 UNITS/10 ML SYR IRR ONE ×2 (13:25→14:53)
[2017-06-02] MEDS ORDERED: ROCURONIUM 50 MG/5 ML VIAL ONE (13:31)
[2017-06-02] MEDS ORDERED: HYDROmorphONE/DILAUDID 2 MG/ML INJ ONE (13:31)
[2017-06-02] MEDS ORDERED: PROPOFOL 200 MG/20 ML VIAL ONE (13:32)
[2017-06-02] MEDS ORDERED: fentaNYL 100 MCG/2 ML INJ ONE ×3 (13:32→16:40)
[2017-06-02] MEDS ORDERED: PROPOFOL/EMULSION 500 MG/50 ML BOTTLE IV ONE ×3 (13:57→16:22)
[2017-06-02] MEDS ORDERED: POVIDONE-IODINE 30 GM OINTTUBE TP ONE (14:53)
[2017-06-02] MEDS ORDERED: PROMETHAZINE HCL 25 MG/ML INJ IVP PRN (17:52)
[2017-06-02] MEDS ORDERED: HYDROmorphONE/DILAUDID 1 MG/ML INJ IVP PRN (17:52)
[2017-06-02] MEDS ORDERED: ONDANSETRON 4 MG/2 ML VIAL IVP PRN ×2 (17:52→18:59)
[2017-06-02] MEDS ORDERED: NALOXONE HCL 0.4 MG/ML INJ IVP PRN ×2 (17:52→19:05)
[2017-06-02] MEDS ORDERED: fentaNYL 100 MCG/2 ML INJ IVP PRN (17:52)
[2017-06-02] MEDS ORDERED: MEPERIDINE 25 MG/ML SYR IVP PRN (17:52)
[2017-06-02] MEDS ORDERED: BISACODYL 10 MG SUPP PR PRN (18:59)
[2017-06-02] MEDS ORDERED: oxyCODONE IR 5 MG TAB PO PRN (18:59)
[2017-06-02] MEDS ORDERED: LACTULOSE 20 GM/30 ML UDCUP PO PRN (18:59)
[2017-06-02] MEDS ORDERED: diphenhydrAMINE 25 MG CAP PO PRN (18:59)
[2017-06-02] MEDS ORDERED: ONDANSETRON DISINTEGRATING 4 MG TAB PO PRN (18:59)
[2017-06-02] MEDS ORDERED: MAGNESIUM HYDROXIDE 30 ML UDCUP PO PRN (18:59)
[2017-06-02] MEDS ORDERED: NS W/ 20 KCl/L 1,000 ML IV SCH (19:00)
[2017-06-02] MEDS ORDERED: morphINE PCA 30 MG/30 ML PCA IV PRN (19:05)
--- NOTE | 2017-06-02 19:06 | POSTANESTH ---
Post Anesthetic Evaluation Cardiovascular Status: Normal, Stable Respiratory Status: Normal, Stable Level of Consciousness/Mental Status: Can Participate in Eval Pain Control: Adequate, Prn Tx Ordered Nausea/Vomiting Control: Adequate, Prn Tx Ordered Complications Possibly Related to Anesthesia: None Noted
--- NOTE | 2017-06-02 19:08 | POSTOPPROG ---
Post Op Note Date of Operation: 06/02/17 Surgeon: Darren Lawrence Director Of Pediatric Rehabilitation: Lan Evans PAC Anesthesiologist: Anupam Anesthesia: GET(General Endotracheal) Pre-op Diagnosis: Cervical stenosis C4-7 Post-op Diagnosis: same Indication: critical spinal stenosis Procedure: C4-7 ACDF and C4-7 posterior decompression/fusion Findings: stenosis Inf/Abcess present in the surg proc area at time of surgery?: No EBL: 100-500 Complications: none Drains: Reji Hart (anterior and posterior JPs to bulb suction)
--- NOTE | 2017-06-02 19:17 | SOAPPROG ---
SOAP Progress Note Assessment/Plan: Post op check: Plan: CPM in PACU NICKIE x 2 to bulb suction transfer to ICU per protocol 06/02/17 19:12 Subjective: Groggy. opens eyes to tactile stimulation. comfortable Objective: Vital Signs Temp Pulse Resp BP Pulse Ox 36.4 C 62 94 H 172/80 H 06/02/17 10:33 06/02/17 13:19 06/02/17 13:19 06/02/17 13:19 Laboratory Results 06/02/17 11:00 Neuro: BP: 178/84 HR 93 O2: 99% face mask Neuro: MCKENZIE, sens +LT squeezes hands and wiggle feet to command PERRLA ICD10 Worksheet Patient Problems: Problems Problem Status Onset Cellulitis of leg, right Acute Chest pain Acute Knee pain, acute Acute Osteoarthritis of right knee Acute Primary osteoarthritis of left knee Acute
--- NOTE | 2017-06-02 22:02 | CPEKG ---
Heart Rate: 98 RR Interval: 612 P-R Interval: 188 QRSD Interval: 140 QT Interval: 384 QTC Interval: 491 P [place]: 49 QRS [place]: -63 T Wave [place]: -9 EKG Severity - ABNORMAL ECG - EKG Impression: SINUS RHYTHM EKG Impression: RBBB AND LPFB Electronically Signed By: Darcy Dolan 03-Jun-2017 08:23:25
[2017-06-02] MEDS: ACETAMINOPHEN 500 MG TAB PO SCH (22:22)
[2017-06-02] MEDS: POLYETHYLENE GLYCOL 3350 17 GM PKT PO SCH (22:26)
[2017-06-02] MEDS: FAMOTIDINE 20 MG TAB PO SCH (22:26)
[2017-06-02] MEDS: SENNOSIDES/DOCUSATE SODIUM TAB PO SCH (22:27)
[2017-06-02] MEDS: morphINE SR 15 MG TAB PO SCH (22:27)
[2017-06-02] MEDS: DIAZEPAM 10 MG/2 ML SYR IVP PRN (22:39)
[2017-06-03] MEDS: ceFAZolin 2 GM/DEXTROSE 100 ML IV SCH ×2 (00:56→05:44)
--- NOTE | 2017-06-03 02:54 | GOP ---
[f rep st] OPERATIVE REPORT DATE OF OPERATION: 06/02/2017 SURGEON: Darren Lawrence MD NEUROSURGEON: Darren Lawrence MD JOURNEY LINEMAN: Lan Evans PA-C ANESTHESIA: General endotracheal. 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 Multilevel herniated disks. High-risk surgical c andidate. 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 Severe cervical degenerative joint disease. Multilevel herniated disks. High-risk surgical candidate. PROCEDURE PERFORMED: Complete C4-5, C5-6, and C6-7 anterior cervical diskectomy and arthrodesis with 3 structural polyetheretherketone interbody spacers and local autograft. Partial C5 and C6 vertebra l corpectomies for decompression of the spinal canal. Placement of a LnK CastleLoc-P anterior cervic al plate from C4 through C7 with self-drilling screws. Use of intraoperative microscopy and fluorosc opy. FINDINGS: ESTIMATED BLOOD LOSS: 100 cc. INDICATIONS: The patient is an 82-year-old man with severe multilevel cervical degenerative joint di sease and disk herniations with progressive cervical spondylitic myelopathy who has ongoing myelopath ic symptoms and presents now for a multilevel anterior and posterior surgical decompression and stabi lization. DESCRIPTION OF PROCEDURE: After informed consent was obtained, the patient was taken to the operatin g room, placed in the supine position with the head in the halter retractor system. The anterior cer vical region was prepped and draped in a sterile fashion. After fluoroscopic localization of the cor rect levels, the subcutaneous and intramuscular tissues were infiltrated with local anesthesia. A ho rizontal incision was then created at the level of the C5-6 interspace. This was carried through the platysmal layer using monopolar electrocautery and carried in the avascular plane between the sterno cleidomastoid and carotid sheath laterally and the strap muscles, trachea, and esophagus medially, do wn to the prevertebral fascia, which was carefully incised with Metzenbaum scissors. The C4-5, C5-6, and C6-7 interspaces were identified and carefully dissected out. The large osteophytes were carefu lly removed and harvested for local autograft. The distraction pins were then serially inserted, fir st at C6-7, then at C5-6, then C4-5, during which time a slight amount of distraction was created acr oss the interspace and complete diskectomies were performed with removal of the posterior longitudina l ligament and performing bilateral foraminotomies. The posteriorly protruding osteophytes were care fully removed for a thorough decompression of the central canal. There was an extensive amount of dr illing required due to the large osteophytes and irregularities, and because both the superior and in ferior endplates of C5 and C6 were exposed and drilled approximately 50% of the vertebral bodies was removed as a result of the necessary drilling and required decompression of the canals for partial C5 and C6 vertebral corpectomies. Following adequate decompression, the wound and disk spaces were copiously irrigated with antibiotic irrigation. Meticulous hemostasis was achieved. Appropriately sized structural PEEK interbody space rs were then packed with local autograft from the partial corpectomies and osteophytectomies, and lopez ev in the interspaces at C4-5, C5-6, and C6-7 under fluoroscopic image guidance. The distraction wa s removed after each individual level and an appropriately sized LnK CastleLoc-P anterior cervical pl ate was then placed and secured from C4 through C7 with 16 mm self-drilling screws. Following verifi cation of good position of the plate screws and interbody spacers, the locking mechanisms were engage d. The remaining bone graft was packed into the anterior hole of the plates. A drain was placed. T he subcutaneous and intramuscular tissues were re-infiltrated with local anesthesia, and the wound wa s closed in a layered fashion using interrupted Vicryl sutures followed by Steri-Strips on the skin. COMPLICATIONS: None. DISPOSITION: The patient was then repositioned for the posterior portion of the operation. /[id number]/MODL
--- NOTE | 2017-06-03 03:14 | GOP ---
[f rep st] OPERATIVE REPORT DATE OF OPERATION: 06/02/2017 SURGEON: Darren Lawrence MD NEUROSURGEON: Darren Lawrence MD PUBLIC POLICY MEDIATOR: Lan Evans PA-C ANESTHESIA: General endotracheal. 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 Multilevel herniated disks. High-risk surgical c andidate. 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 Severe cervical degenerative joint disease. Multilevel herniated disks. High-risk surgical candidate. PROCEDURE PERFORMED: C4-C7 laminectomies for decompression of spinal canal with C4-C7 posterior segm ental (lateral mass screw) fixation and posterolateral fusion with local autograft. Use of intraoper ative microscopy and fluoroscopy. FINDINGS: ESTIMATED BLOOD LOSS: 150 cc. INDICATIONS: The patient is an 82-year-old man with severe multilevel cervical degenerative joint di sease and disk herniations with progressive cervical spondylitic myelopathy who has ongoing myelopath ic symptoms and presents now for a multilevel anterior and posterior surgical decompression and stabi lization. DESCRIPTION OF PROCEDURE: After the anterior portion of the procedure was completed, the patient was repositioned prone with the head in a Sibley headholder. The posterior cervical area was prepped and draped in a sterile fashion. After fluoroscopic localization of the correct level, the subcutane ous and intramuscular tissues were infiltrated with local anesthesia. A midline linear incision was then created from approximately C4 through C7. This was carried down to the fascial layer, which was incised using monopolar electrocautery and carried in the subcostal plane along the spinous processe s and laminae bilaterally. After reverification of the correct levels, the dissection was carried ou t over the facet joints. The [employer] drill system was utilized to cut 2 gutters down between the mccartney inae and transverse processes, and the posterior cervical bone and ligament were all removed. The Ke rrison rongeur was utilized to trim up any remaining offensive material. The wound was then copiously irrigated again with antibiotic irrigation, and meticulous hemostasis wa s achieved. Biplanar fluoroscopy was then utilized to place lateral mass screw fixation at C4, C5, C 6, and C7 bilaterally. Each individual screw was tested neurophysiologically with monopolar electros timulation and interpretation of the potentials by the surgeon. Biplanar fluoroscopy was again utili zed to verify good position of the screws as best we could, given his body habitus. The rods were th en placed and secured under maximal lordosis. The remaining lateral masses and facet joints from C4- C7 were then decorticated, and the local autograft from the laminectomy defects was placed out latera lly for a posterolateral fusion from C4-C7. A drain was then placed. The subcutaneous and intramusc ular tissues were re-infiltrated with local anesthesia, and the wound was closed in a layered fashion using interrupted Vicryl sutures followed by Steri-Strips on the skin. COMPLICATIONS: None. DISPOSITION: The patient is currently in the process of being repositioned for extubation. /[id number]/MODL
--- NOTE | 2017-06-03 04:24 | GCON ---
[f rep st] CONSULTATION DATE OF CONSULTATION: 06/02/2017 The patient is an 82-year-old gentleman who is postop who underwent cervical spine fusion by Dr. Darren Lawrence today. I am asked to consult to assist with management of medical comorbidities. Whe n I see the patient in the PACU, he is somnolent but alert and arousable without specific complaints. Specifically, no shortness of breath. He states his pain is well controlled. I followed him up in the ICU later where his nurse noted some ST depressions on the monitor. There w as no EKG today, and I have ordered one. Reviewing the operative literature, there were no immediate complications. The patient had an unrema rkable PACU course. REVIEW OF SYSTEMS: Complete 10-point review of systems conducted and negative, except as noted in th e HPI. PAST MEDICAL HISTORY: Hyperlipidemia, BPH, hypertension, chronic kidney disease, osteoarthritis, pro state cancer, cryotherapy, right bundle branch block, irritable bowel syndrome, neuropathy, and plant ar neuropathy. He has a history of knee arthroplasty bilaterally, one of which was in the end of October of 2016. He was subsequently admitted with cellulitis on that right leg. He has had bilateral dinh tid endarterectomies. FAMILY HISTORY: His father had an VT in his 50s. SOCIAL HISTORY: Former smoker. No alcohol. Lives independently. ALLERGIES: Ibuprofen. HOME MEDICATIONS: Amlodipine, atorvastatin, finasteride, gabapentin, metoprolol, aspirin, flurbiprof en, oxycodone, and Tylenol. PHYSICAL EXAMINATION: VITAL SIGNS: Temp 36.7, blood pressure 177/83, pulse 96, breathing 15 times a minute, on room air. GENERAL: Lying flat. Sclerae anicteric. Oropharynx clear. Mucou s membranes are moist. Neck is in a hard collar. LUNGS: Clear to auscultation anterolaterally. HE ART: S1, S2 without murmurs. ABDOMEN: Soft, nontender, nondistended. LOWER EXTREMITIES: Without edema. Calves are nontender. SKIN: Without rash. NEUROLOGIC: Nonfocal. LABS: White count 5.2, hematocrit 35 which is greater than his baseline, and platelets are 139. Sod ium 135, potassium 4.3, chloride 102, bicarb 24. BUN 31, creatinine 1.3. These numbers are his base line. Glucose 116. ALT and AST are 75 and 73 respectively. He has a normal bilirubin. Please note these labs are from November. I have reviewed and summarized the previous hospital records. I discussed the case THIEN Rodriguez of Neurosurgery. ASSESSMENT/PLAN: 82-year-old gentleman postoperative from cervical spine fusion. 1. Chronic kidney disease. Have to follow his creatinine at least every other day. He is maintaini ng euvolemia. 2. ST change on the monitor. I suspect this is related to right bundle branch block, but I have ord ered an EKG for verification. The patient is not complaining of chest pain. 3. Pain management in an elderly gentleman. I would use caution with Benadryl and muscle relaxants given his risk for encephalopathy. 4. Hypertension. We will continue his medicines, and they have been reconciled. 5. Hyperlipidemia. Continue his statin. DISPOSITION: Inpatient status. Thank you for this consult. Hospital medicine to follow. /[id number]/MODL
[2017-06-03] MEDS: ACETAMINOPHEN 500 MG TAB PO SCH ×3 (05:59→21:17)
[2017-06-03 06:32] LABS: % IMMATURE GRANULYOCYTES 0.4 % (0.0-1.1); ABSOLUTE IMMATURE GRANULOCYTES 0.03 10^3/uL (0.00-0.10); ADD DIFF? NO; ADD MORPH? NO; ADD SCAN? NO; ATYPICAL LYMPHOCYTE FLAG 0 (0-99); FRAGMENT RBC FLAG 0 (0-99); HEMATOCRIT 32.7 % (40.0-51.0); HEMOGLOBIN 11.4 g/dL (13.7-17.5); LEFT SHIFT FLG 0 (0-99); LIPEMIA HEMOLYSIS FLAG 90 (0-99); MEAN CELL HEMOGLOBIN CONCENTR. 34.9 g/dL (32.4-36.7); MEAN CELL VOLUME 97.6 fL (81.5-99.8); MEAN PLATELET VOLUME 8.8 fL (8.7-11.7); PLATELET CLUMPS FLAG 0 (0-99); PLATELET COUNT 138 10^3/uL (150-400); RED BLOOD CELL COUNT 3.35 10^6/uL (4.40-6.38); RED CELL DISTRIBUTION WIDTH 12.5 % (11.5-15.2)
[2017-06-03 06:52] LABS: ANION GAP 12 mEq/L (8-16); CALCIUM 8.6 mg/dL (8.5-10.4); CARBON DIOXIDE 22 mEq/l (22-31); CHLORIDE 104 mEq/L (97-110); CREATININE 1.3 mg/dL (0.7-1.3); GLOMERULAR FILTRATION RATE 53; GLUCOSE 175 mg/dL (70-100); POTASSIUM 5.2 mEq/L (3.5-5.2); SODIUM 138 mEq/L (134-144)
--- NOTE | 2017-06-03 07:57 | SOAPPROG ---
SOAP Progress Note Assessment/Plan: Assessment: POD #1 s/p C4-7 Ant/post fusion doing well neuro stable moderate dysphagia Plan: Transfer to floor today Continue NICKIE drain to bulb suction x2 Pt/OT/ST Discussed with Dr. Vicente Subjective: Awake, alert comfortable denies weakness, or paresthesias. Pain well controlled. Objective: Vital Signs Temp Pulse Resp BP Pulse Ox 36.6 C 87 20 163/67 H 97 06/03/17 07:41 06/03/17 07:41 06/03/17 07:41 06/03/17 07:41 06/03/17 07:41 Laboratory Results 06/03/17 06:20 06/03/17 06:20 06/02/17 06/03/17 06/04/17 05:59 05:59 05:59 Intake Total 1820 Output Total 1585 Balance 235 Neuro: MCKENZIE, Sens +LT follows commands dressing dry NICKIE ant: 110ml NICKIE post: 150ml ICD10 Worksheet Patient Problems: Problems Problem Status Onset Cellulitis of leg, right Acute Chest pain Acute Knee pain, acute Acute Osteoarthritis of right knee Acute Primary osteoarthritis of left knee Acute
[2017-06-03] MEDS: FAMOTIDINE 20 MG TAB PO SCH (12:03)
[2017-06-03] MEDS: morphINE SR 15 MG TAB PO SCH ×2 (12:03→21:19)
[2017-06-03] MEDS: SENNOSIDES/DOCUSATE SODIUM TAB PO SCH ×2 (12:04→21:17)
[2017-06-03] MEDS: POLYETHYLENE GLYCOL 3350 17 GM PKT PO SCH ×3 (12:05→21:25)
--- NOTE | 2017-06-03 12:06 | ASMTCASEMG ---
Living Arrangements What is your living Answers: With Spouse arrangement? Who do you live with? Type Of Residence What kind of residence do Answers: House you live in? Discharge Plan Comments Coordination Status Comments Notes: Patient is an 82yo male who was admitted for a C4/5, C5/6, C6/7 anterior posterior cervical decompression and fusion. His MRI identified degenerative changes causing his worsening gait disturbance and increasing his risk for a permanent spinal cord injury should he fall, slip, etc. Patient did well in surgery. PT/OT/SPL have been ordered. Patient will most likely transfer to the floor today. D/C plan TBD when evals are complete. CM will follow. Date Signed: 06/03/2017 12:05 PM Electronically Signed By:Jovanna Barrios LCSW
[2017-06-03] MEDS: METOPROLOL TARTRATE 25 MG TAB PO SCH ×2 (12:53→21:18)
[2017-06-03] MEDS: FINASTERIDE 5 MG TAB PO SCH (13:56)
[2017-06-03 14:35] VITALS: RESP 16
[2017-06-03] MEDS: DIAZEPAM 10 MG/2 ML SYR IVP PRN (14:46)
[2017-06-03] MEDS ORDERED: AMITRIPTYLINE TP SCH (16:00)
[2017-06-03] MEDS: GABAPENTIN 300 MG CAP PO SCH ×2 (16:44→21:21)
[2017-06-03] MEDS: DIAZEPAM 5 MG TAB PO PRN (17:43)
[2017-06-03] MEDS: oxyCODONE IR 5 MG TAB PO PRN ×2 (17:43→21:15)
[2017-06-03] MEDS: hydrALAZINE 20 MG/ML VIAL IVP PRN (19:49)
--- NOTE | 2017-06-03 20:10 | HOSPPROG ---
Hospitalist Progress Note Assessment/Plan: # Cervical stenosis C4-7 Ant/post fusion POD # 1 - progressing well today - NICKIE in place pt advanced by speech for food today cervical xray (personally reviewed and interpreted) shows good c4-7 alignment -management per NSG - cont pain control - cont ST # HTN - SBP creeping up today - 180's - reconcile home meds to start today # CKD - appears at baseline creatinine 1.3 - cont to follow # proph - when cleared by nsg # diet - ST uptitrating PO # dispo - > 2MN as requires post-op recovery I have discussed the case with RN -restarting home meds today Subjective: pain but hopeful longer acting meds will work Objective: Vital Signs Temp Pulse Resp BP Pulse Ox 36.8 C 88 16 180/98 H 93 06/03/17 19:37 06/03/17 19:37 06/03/17 19:37 06/03/17 19:49 06/03/17 19:37 Laboratory Results 06/03/17 06:20 06/03/17 06:20 06/02/17 06/03/17 06/04/17 05:59 05:59 05:59 Intake Total 1820 Output Total 1585 470 Balance 235 -470 - Physical Exam Constitutional: appears nourished Eyes: anicteric sclera Ears, Nose, Mouth, Throat: moist mucous membranes Cardiovascular: regular rate and rhythym Respiratory: no respiratory distress, No expiratory wheeze, No inspiratory crackles Gastrointestinal: normoactive bowel sounds Genitourinary: no bladder fullness Skin: warm Musculoskeletal: No asymmetric calves Neurologic: AAOx3 Psychiatric: interacting appropriately, not anxious Lymph, Heme, Immunologic: no cervical LAD ICD10 Worksheet Patient Problems: Problems Problem Status Onset Cellulitis of leg, right Acute Chest pain Acute Knee pain, acute Acute Osteoarthritis of right knee Acute Primary osteoarthritis of left knee Acute
[2017-06-03] MEDS: ATORVASTATIN CALCIUM 10 MG TAB PO SCH (21:19)
[2017-06-04] MEDS: FAMOTIDINE 20 MG TAB PO SCH ×3 (00:34→20:48)
[2017-06-04] MEDS: hydrALAZINE 20 MG/ML VIAL IVP PRN (05:29)
[2017-06-04] MEDS: oxyCODONE IR 5 MG TAB PO PRN ×3 (05:35→16:31)
[2017-06-04] MEDS: ACETAMINOPHEN 500 MG TAB PO SCH ×3 (05:36→22:36)
[2017-06-04] MEDS: POLYETHYLENE GLYCOL 3350 17 GM PKT PO SCH ×3 (09:02→22:38)
[2017-06-04] MEDS: SENNOSIDES/DOCUSATE SODIUM TAB PO SCH ×2 (09:03→20:48)
[2017-06-04] MEDS: FINASTERIDE 5 MG TAB PO SCH (09:03)
[2017-06-04] MEDS: METOPROLOL TARTRATE 25 MG TAB PO SCH ×2 (09:04→20:51)
[2017-06-04] MEDS: GABAPENTIN 300 MG CAP PO SCH ×3 (09:04→22:37)
[2017-06-04] MEDS: CHOLECALCIFEROL VIT D3 2,000 UNITS TAB/CAP PO SCH (09:04)
[2017-06-04] MEDS: morphINE SR 15 MG TAB PO SCH ×2 (09:04→20:49)
[2017-06-04] MEDS: CYANO/VITAMIN B12 1000 MCG TAB PO SCH (09:05)
[2017-06-04] MEDS: ENOXAPARIN 40 MG/0.4 ML SYR SC SCH (09:06)
--- NOTE | 2017-06-04 09:17 | SOAPPROG ---
SOAP Progress Note Assessment/Plan: Assessment: 82 yo M POD C4-7 ACDF and C4-7 posterior fusion Plan: neuro: stable and doing well overall :) PT/OT hard collar at all times scd/tremaine/lovenox for dvt prophylaxis removing anterior NICKIE dysphagia should improve with time please call with neuro changes patient seen with Dr Monroy 06/04/17 09:14 Subjective: continued neck pain, no arm pain or weakness. Objective: Vital Signs Temp Pulse Resp BP Pulse Ox 36.7 C 87 16 171/82 H 87 L 06/04/17 08:00 06/04/17 08:00 06/04/17 08:00 06/04/17 08:00 06/04/17 08:00 Laboratory Results 06/03/17 06:20 06/03/17 06:20 06/03/17 06/04/17 06/05/17 05:59 05:59 05:59 Intake Total 1820 850 Output Total 1585 580 Balance 235 270 AAOx4, +FC PERRL, EOMI, no facial droop 5/5 + light touch C/D/I x 2 ICD10 Worksheet Patient Problems: Problems Problem Status Onset Cellulitis of leg, right Acute Chest pain Acute Knee pain, acute Acute Osteoarthritis of right knee Acute Primary osteoarthritis of left knee Acute
--- NOTE | 2017-06-04 11:50 | ASMTCMCOM ---
CM Note CM Note Notes: Chart reviewed. Patient s/p cervical surgery, brace in place. Per PT recommending home with family assist and therapy vs inpt rehab. Patient want to go home. POD 2. Doing well has no preference for C agency. Referral to [facility]. CM to follow. Plan Home with home health care. Date Signed: 06/04/2017 11:49 AM Electronically Signed By:Pretty Zhao RN
[2017-06-04] MEDS: METHOCARBAMOL 750 MG TAB PO PRN (12:40)
--- NOTE | 2017-06-04 16:15 | HOSPPROG ---
Hospitalist Progress Note Assessment/Plan: # Cervical stenosis C4-7 Ant/post fusion POD # 2 - cont to progress well - NICKIE x2 in place pt advanced by speech for food - pureed diet cervical xray (personally reviewed and interpreted) shows good c4-7 alignment - reports pain is not perfectly controlled -management per NSG - cont more aggressive pain control - cont ST # HTN - SBP range today 120-170 - improve pain control - cont home meds # CKD - appears at baseline creatinine 1.3- oxygen saturations 90% on RA - cont to follow recheck in am # proph - lovenox # diet - pureed diet # dispo - > 2MN as requires post-op recovery I have discussed the case with RN -continue aggressive pain control Subjective: pain not well controlled Objective: Vital Signs Temp Pulse Resp BP Pulse Ox 36.7 C 83 16 128/75 H 94 06/04/17 08:00 06/04/17 15:45 06/04/17 15:45 06/04/17 15:45 06/04/17 15:45 Laboratory Results 06/03/17 06:20 06/03/17 06:20 06/03/17 06/04/17 06/05/17 05:59 05:59 05:59 Intake Total 1820 850 Output Total 1585 580 Balance 235 270 - Physical Exam Constitutional: appears nourished Eyes: anicteric sclera Ears, Nose, Mouth, Throat: moist mucous membranes Cardiovascular: regular rate and rhythym Respiratory: no respiratory distress Gastrointestinal: normoactive bowel sounds Genitourinary: no bladder fullness Skin: warm Musculoskeletal: No asymmetric calves Neurologic: AAOx3 Psychiatric: interacting appropriately Lymph, Heme, Immunologic: no cervical LAD ICD10 Worksheet Patient Problems: Problems Problem Status Onset Cellulitis of leg, right Acute Chest pain Acute Knee pain, acute Acute Osteoarthritis of right knee Acute Primary osteoarthritis of left knee Acute
[2017-06-04] MEDS: ATORVASTATIN CALCIUM 10 MG TAB PO SCH (20:49)
[2017-06-04] MEDS: DIAZEPAM 5 MG TAB PO PRN (22:42)
[2017-06-05] MEDS: ACETAMINOPHEN 500 MG TAB PO SCH ×2 (05:27→13:22)
[2017-06-05] MEDS: oxyCODONE IR 5 MG TAB PO PRN ×3 (05:28→13:22)
[2017-06-05 07:50] VITALS: TEMP 98.3
--- NOTE | 2017-06-05 07:58 | SOAPPROG ---
SOAP Progress Note Assessment/Plan: Assessment: 82 yo M POD #3 C4-7 ACDF and C4-7 posterior fusion Plan: neuro: stable and doing well overall :) pain improved today PT/OT hard collar at all times scd/tremaine/lovenox for dvt prophylaxis anterior NICKIE removed 06/04 dysphagia should improve with time please call with neuro changes likely dc home today 06/04/17 09:14 06/05/17 07:57 Subjective: neck pain improving, no arm pain, no weakness. Objective: Vital Signs Temp Pulse Resp BP Pulse Ox 36.8 C 85 16 138/79 H 96 06/05/17 07:49 06/05/17 07:49 06/05/17 07:49 06/05/17 07:49 06/05/17 07:49 Laboratory Results 06/03/17 06:20 06/03/17 06:20 06/04/17 06/05/17 06/06/17 05:59 05:59 05:59 Intake Total 850 Output Total 580 45 Balance 270 -45 AAOX4, +FC PERRL, EOMI, no facial droop 5/5 + light touch C/D/I x 2 ICD10 Worksheet Patient Problems: Problems Problem Status Onset Cellulitis of leg, right Acute Chest pain Acute Knee pain, acute Acute Osteoarthritis of right knee Acute Primary osteoarthritis of left knee Acute
[2017-06-05] MEDS: CYANO/VITAMIN B12 1000 MCG TAB PO SCH (09:23)
[2017-06-05] MEDS: CHOLECALCIFEROL VIT D3 2,000 UNITS TAB/CAP PO SCH (09:23)
[2017-06-05] MEDS: FINASTERIDE 5 MG TAB PO SCH (09:23)
[2017-06-05] MEDS: SENNOSIDES/DOCUSATE SODIUM TAB PO SCH (09:23)
[2017-06-05] MEDS: GABAPENTIN 300 MG CAP PO SCH (09:23)
[2017-06-05] MEDS: FAMOTIDINE 20 MG TAB PO SCH (09:23)
[2017-06-05] MEDS: morphINE SR 15 MG TAB PO SCH (09:24)
[2017-06-05] MEDS: METHOCARBAMOL 750 MG TAB PO PRN (09:24)
[2017-06-05] MEDS: ENOXAPARIN 40 MG/0.4 ML SYR SC SCH (09:25)
[2017-06-05] MEDS: METOPROLOL TARTRATE 25 MG TAB PO SCH (09:27)
[2017-06-05 09:46] VITALS: BP 137/66; PULSE 84
[2017-06-05] MEDS: POLYETHYLENE GLYCOL 3350 17 GM PKT PO SCH (09:50)
--- NOTE | 2017-06-05 13:56 | HOSPPROG ---
Hospitalist Progress Note Assessment/Plan: # Cervical stenosis C4-7 Ant/post fusion POD # 3 -cervical xray shows good c4-7 alignment- -management per NSG - pain well managed # HTN - stable today # CKD - appears at baseline creatinine 1.3- # proph - lovenox # hypoxemia -suspect this is atelectasis/lungs are clear throughout -oxygen levels while I was seeing him ranged from 87-94% # diet - pureed diet # dispo -dc per neurosurgery team Subjective: Agusto is feeling well, wants to go home, no difficulty w swallowing. Objective: Vital Signs Temp Pulse Resp BP Pulse Ox 36.8 C 84 16 137/66 H 87 L 06/05/17 07:49 06/05/17 09:27 06/05/17 07:49 06/05/17 09:28 06/05/17 13:32 Laboratory Results 06/03/17 06:20 06/03/17 06:20 06/04/17 06/05/17 06/06/17 05:59 05:59 05:59 Intake Total 850 Output Total 580 45 Balance 270 -45 - Physical Exam Constitutional: no apparent distress, appears nourished, not in pain Eyes: PERRL Ears, Nose, Mouth, Throat: hearing normal, other (hard collar in place) Cardiovascular: regular rate and rhythym Respiratory: no respiratory distress, clear to auscultation Skin: warm Musculoskeletal: generalized weakness Neurologic: AAOx3 Psychiatric: interacting appropriately, not anxious ICD10 Worksheet Patient Problems: Problems Problem Status Onset Cellulitis of leg, right Acute Chest pain Acute Knee pain, acute Acute Osteoarthritis of right knee Acute Primary osteoarthritis of left knee Acute
--- NOTE | 2017-06-05 14:44 | PDIAF ---
- Diagnosis Code Status: Full Code - Medication Management Discharge Medications: Medications to Continue on Transfer Finasteride [Proscar 5 MG (*)] 5 mg PO DAILY10 11/23/12 [Last Taken 06/02/17] Atorvastatin Calcium [Lipitor 10 mg (*)] 10 mg PO HS 08/09/13 [Last Taken ] Metoprolol Tartrate [Lopressor 25 mg (*)] 25 mg PO BID 08/09/13 [Last Taken 06/07 09:00] Flurbiprofen 50 mg PO DAILY 11/14/16 [Last Taken 06/01/17] amLODIPine BESYLATE [Norvasc 2.5 mg (*)] 2.5 mg PO DAILY 11/14/16 [Last Taken ] Acetamn/Diphenhydramine 500/25 [Tylenol PM (*)] 1 each PO HS 06/01/17 [Last Taken 06/01/17] Amitriptyline 2% Cream 1 deborah TP TID 06/03/17 [Last Taken Unknown] Cholecalciferol Vit D3 [Vitamin D3 2000 units tab (OTC)] 2,000 units PO DAILY [Last Taken Unknown] Cyanocobalamin [Vitamin B12 (*)] 1,000 mcg PO DAILY 06/03/17 [Last Taken Unknown ] Gabapentin [Neurontin 300 MG (*)] 300 mg PO TID 06/03/17 [Last Taken 06/02/17 09 :00] Diazepam [Valium 5 MG (*)] 5 mg PO Q8H PRN tab 06/05/17 [Last Taken Unknown] Methocarbamol [Robaxin 750 mg (*)] 750 mg PO Q8H PRN tab 06/05/17 [Last Taken Unknown] morphINE SR [Ms Contin/Oramorph 15 mg (*)] 15 mg PO BID tab 06/05/17 [Last Taken Unknown] oxyCODONE IR [Oxycodone Ir (*)] 5 - 10 mg PO Q3H PRN tab 06/05/17 [Last Taken Unknown] Discharge Medications: Refer to the Discharge Home Medication list for PRN reason. PICC Care - Routine: N/A - Orders Services needed: Home Care, Registered Nurse, Physical Therapy, Occupational Therapy Home Care Face to Face: I certify that this patient was under my care and that I had the required [id number] encounter meeting the encounter requirements on the discharge day. My findings support the fact that the patient is homebound as defined in Home Care Face to Face Continued: CMS Chapter 7 Medicare Benefits Manual 30.1.1 , The condition of the patient is such that there exists a normal inability to leave home and consequently, leaving home would require a considerable and taxing effort. Diet Recommendation: no restrictions on diet Diet Texture: Regular Texture Diet, Thin Liquids, Meds Whole in Puree Equipment: home oxygen Additional: hard collar for 4 weeks - Follow Up Care Current Providers and Referrals: Vlad Martinez MD [Primary Care Provider] - Darren Lawrence MD [Medical Doctor] -
--- NOTE | 2017-06-05 14:45 | PDHOMEO2F ---
Home Oxygen Face to Face Home Orders: I certify that a physician or a nurse practitioner or physician's retail assistant manager has had a [id number] encounter with this patient on the date of this order due to the diagnosis listed, which relates to the primary reason the patient requires home oxygen. Alternative treatments have been tried, or considered, and deemed ineffective. It is anticipated that supplemental oxygen will result in improvement with treatment. Home oxygen qualifying diagnosis: post op hypoxia SpO2 on room air (%): 85% Frequency of home oxygen needed: continuous Home oxygen liters per minute: 2 lpm Home oxygen delivery device: nasal cannula Concentrator: Yes E-tanks for mobility and back up: No I certify that, based on these findings, the home oxygen is medically necessary for this patient for the following length of time. Length of time home oxygen needed: 1 month
[2017-06-05 14:46] VITALS: O2SAT 86
--- NOTE | 2017-06-05 15:27 | ASDISCHSUM ---
Discharge Information Plan Status:Home with Home Health Medically Cleared to Leave:06/04/2017 Discharge Date:06/04/2017 CM D/C Disposition:Home Health Service ADT D/C Disposition:Home, Routine, Self-Care Projected Discharge Date:06/05/2017 11:00 AM Transportation at D/C:Family Discharge Delay Reason: Follow-Up Date:06/05/2017 11:00 AM Discharge Slot: Final Diagnosis: Placement Information Referral Type:*Home Health Care Services Referral ID:[id number] Provider Name:[facility] Address 1:[address] [facility] [address] Address 2: City:[place] Selection Factors: State:[place] Patient Contact Information Contact Name:CHICHI Relationship: [address] Work Phone: City:[place] Alternate Phone: State/Zip Code:[place] [address] Email: Financial Information Financial Class: Primary Plan Desc:MEDICARE INPATIENT Primary Plan Number:[id number] [facility] Secondary Plan Number:[id number] Assessment Information [facility] Initial CM Assessment Living Arrangements What is your living Answers: With Spouse arrangement? Who do you live with? Type Of Residence What kind of residence do Answers: House you live in? Discharge Plan Comments Coordination Status Comments Notes: Patient is an 82yo male who was admitted for a C4/5, C5/6, C6/7 anterior posterior cervical decompression and fusion. His MRI identified degenerative changes causing his worsening gait disturbance and increasing his risk for a permanent spinal cord injury should he fall, slip, etc. Patient did well in surgery. PT/OT/SPL have been ordered. Patient will most likely transfer to the floor today. D/C plan TBD when evals are complete. CM will follow. Date Signed: 06/03/2017 12:05 PM Electronically Signed By:Jovanna Barrios LCSW [facility] CM Progress Note CM Note CM Note Notes: Chart reviewed. Patient s/p cervical surgery, brace in place. Per PT recommending home with family assist and therapy vs inpt rehab. Patient want to go home. POD 2. Doing well has no preference for [facility] agency. Referral to [facility]. CM to follow. Plan Home with home health care. Date Signed: 06/04/2017 11:49 AM Electronically Signed By:Pretty Zhao RN Intervention Information Intervention Type:*IM-Signed Date of Service:06/05/2017 02:42 PM Patient Type:Inpatient Staff Member:Yesenia Reyes Hours: Discipline: Severity: Comment:
== END 2017-06-05 16:20 | disposition home health service (06) | DRG 455 ==
LOC: F3N 10:13 → F2N 19:39 → F3N 06-03 14:00
PROVIDERS: ADMIT Neurological Surgery; ATTEND Neurological Surgery
PROC: 00NW0ZZ Release Cervical Spinal Cord, Open Approach (ICD-10-PCS; principal; 2017-06-02 11:45)
PROC: 0RT30ZZ Resection of Cervical Vertebral Disc, Open Approach (ICD-10-PCS; principal; 2017-06-02 11:45)
PROC: 0RG20A0 Fusion of 2 or more Cervical Vertebral Joints with Interbody Fusion Device, Anterior Approach, Anterior Column, Open Approach (ICD-10-PCS; principal; 2017-06-02 11:45)
PROC: 4A1004G Monitoring of Central Nervous Electrical Activity, Intraoperative, Open Approach (ICD-10-PCS; principal; 2017-06-02 11:45)
PROC: 0RG2071 Fusion of 2 or more Cervical Vertebral Joints with Autologous Tissue Substitute, Posterior Approach, Posterior Column, Open Approach (ICD-10-PCS; principal; 2017-06-02 11:45)
DX: M47.12 Other spondylosis with myelopathy, cervical region (principal); M48.02 Spinal stenosis, cervical region; I12.9 Hypertensive chronic kidney disease with stage 1 through stage 4 chronic kidney disease, or unspecified chronic kidney disease; N18.9 Chronic kidney disease, unspecified
CPT/HCPCS: 92526-GN; 92610-GN; 97116-GP; 97161-GP; 97166-GO; 97535-GO; C1713; G8978-GP-CJ; G8979-GP-CI; G8987-GO-CK; G8988-GO-CI; G8996-GN-CH; G8996-GN-CI; G8997-GN-CH; G8997-GN-CI; G8998-GN-CH; J0171; J0360; J0690; J1170; J1650; J2250; J2704; J3010

== ENCOUNTER → 2017-08-06 | Outpatient (CLI) | payer OTHER | LOC: FLAB 11:43 | PROVIDERS: ATTEND Physician Assistant Surgical | DX: Z09 Encounter for follow-up examination after completed treatment for conditions other than malignant neoplasm (principal); M12.88 Other specific arthropathies, not elsewhere classified, other specified site; Z98.1 Arthrodesis status ==

== ENCOUNTER → 2017-11-24 | Outpatient (CLI) | payer OTHER | LOC: FIMAGING 10:39 | PROVIDERS: ATTEND Physician Assistant Surgical | DX: Z09 Encounter for follow-up examination after completed treatment for conditions other than malignant neoplasm (principal); Z98.1 Arthrodesis status ==

== ENCOUNTER → 2018-01-05 | Outpatient (CLI) | payer OTHER | LOC: FIMAGING 09:58 | PROVIDERS: ATTEND Otolaryngology | DX: R26.89 Other abnormalities of gait and mobility (principal); J34.2 Deviated nasal septum; J34.1 Cyst and mucocele of nose and nasal sinus ==

== ENCOUNTER → 2018-03-31 | Outpatient (CLI) | payer OTHER ==
[~2018-03-31] MED LIST changes: -ACETAMINOPHEN 325 MG TAB PO ONE; -CEFAZOLIN 2 GM/DEXTR 100 ML IV ONE; -CHLORHEXIDINE GLUC HIBICLENS 118 ML BTL TP ONE; -DEXAMETHASONE 4 MG/ML VIAL IVP ONE; -FAMOTIDINE 20 MG TAB PO ONE; +GADOBUTROL 10 ML VIAL IVP ONE; -TRANEXAMIC ACID 890 MG in NS 100 ML IV ONE; -VANCOMYCIN 1 GM VIAL ONE; -ceFAZolin 1 GM/5 ML SYR ONE
== END ==
LOC: FIMAGING 07:34
DX: R97.20 Elevated prostate specific antigen [PSA] (principal); C61 Malignant neoplasm of prostate
CPT/HCPCS: 72197; 76377; A9585; 82565-PO

== ENCOUNTER → 2018-05-18 | Outpatient (CLI) | payer OTHER | LOC: FIMAGING 10:52 | PROVIDERS: ATTEND Physician Assistant Surgical | DX: Z09 Encounter for follow-up examination after completed treatment for conditions other than malignant neoplasm (principal); Z98.1 Arthrodesis status ==

== ENCOUNTER 2018-10-28 22:05 | Observation (INO) | payer OTHER ==
[2018-10-28] MEDS ORDERED: ASPIRIN 81 MG CHEWABLE TAB PO ONE (22:19)
[2018-10-28 22:27] LABS: PLATELET COUNT 185 10^3/uL (150-400)
--- NOTE | 2018-10-28 22:33 | EDPHY ---
H & P Stated Complaint: CP, SOB Time Seen by Provider: 10/28/18 22:17 HPI/ROS: HPI The patient presents with chest pain which he describes as a tightness that began at about 9:50 p.m. Tonight. He was feeling well earlier in the evening, ate dinner at about 8:00 p.m.. He walked to the bathroom, urinated, stood and walked out of the bathroom and then suddenly developed chest pain in his sternum which was severe without radiation which was associated with shortness of breath. He did not have any associated nausea, vomiting, dizziness, diaphoresis. He has not had any abdominal pain, weakness of his arms or legs. He has not had a cough or fever recently. He says about 4 weeks ago he had a right-sided cramping chest pain that lasted for about 30 min. The following day he had a similar episode. He has not had any chest pain otherwise. About 4 years ago he had a nuclear stress test, treadmill stress test, Holter monitor performed by Dr. Plunkett. All of this testing was normal per his report.. REVIEW OF SYSTEMS 10 systems were reviewed and negative with the exception of the elements mentioned in the history of present illness. PMHx: Hypertension, hyperlipidemia, history of bilateral carotid endarterectomy , prior cellulitis of his right lower extremity which now causes him to have chronic mild right lower extremity edema Soc Hx: Here with his , lives at home independently FHx: Father with an CA in his 50s PHYSICAL General Appearance: Alert, slightly tachypneic and uncomfortable appearing Eyes: Pupils equal and round no pallor or injection ENT, Mouth: Mucous membranes moist Respiratory: There are no retractions, lungs are clear to auscultation Cardiovascular: Regular rate and rhythm , 2+ radial pulses which are symmetric bilaterally Gastrointestinal: Abdomen is soft and non-tender, no masses, bowel sounds normal Neurological: A&O, moves all extremities Skin: Warm and dry, no rashes Musculoskeletal: Neck is supple non tender Extremities: 1+ pitting edema to right lower extremity to knee, mild edema of his left lower extremity Psychiatric: Patient is oriented X 3, there is no agitation Source: Patient Exam Limitations: No limitations - Personal History Current Tetanus Diphtheria and Acellular Pertussis (TDAP): Yes Tetanus Vaccine Date: 06/12/15 - Medical/Surgical History Hx Asthma: No Hx Chronic Respiratory Disease: No Hx Diabetes: No Hx Cardiac Disease: Yes Hx Renal Disease: Yes Hx Cirrhosis: No Hx Alcoholism: No Hx HIV/AIDS: No Hx Splenectomy or Spleen Trauma: No Other PMH: HTN, Hyperlipidemia, left total total knee replacement, bilateral endarectomy 12/02. right total knee replacement 2016, cataract surgery - Social History Smoking Status: Former smoker Constitutional: Initial Vital Signs Temperature (C) 36.5 C 10/28/18 22:06 Heart Rate 85 10/28/18 22:06 Respiratory Rate 22 H 10/28/18 22:06 Blood Pressure 165/78 H 10/28/18 22:06 O2 Sat (%) 94 10/28/18 22:06 O2 Delivery Mode Nasal Cannula O2 (L/minute) 2 Allergies/Adverse Reactions: ibuprofen Allergy (Severe, Verified 06/01/17 13:56) Unknown Home Medications: Medication Instructions Recorded Finasteride [Proscar 5 MG (*)] 5 mg PO DAILY10 11/23/12 Atorvastatin Calcium [Lipitor 10 10 mg PO HS 08/09/13 mg (*)] Metoprolol Tartrate [Lopressor 25 25 mg PO BID 08/09/13 mg (*)] Flurbiprofen 50 mg PO DAILY 11/14/16 amLODIPine BESYLATE [Norvasc 2.5 2.5 mg PO DAILY 11/14/16 mg (*)] Acetamn/Diphenhydramine 500/25 1 each PO HS 06/01/17 [Tylenol PM (*)] Amitriptyline 2% Cream 1 deborah TP TID 06/03/17 Cholecalciferol Vit D3 [Vitamin D3 2,000 units PO DAILY 06/03/17 2000 units tab (OTC)] Cyanocobalamin [Vitamin B12 (*)] 1,000 mcg PO DAILY 06/03/17 Gabapentin [Neurontin 300 MG (*)] 300 mg PO TID 06/03/17 Diazepam [Valium 5 MG (*)] 5 mg PO Q8H PRN tab 06/05/17 Methocarbamol [Robaxin 750 mg (*)] 750 mg PO Q8H PRN tab 06/05/17 morphINE SR [Ms Contin/Oramorph 15 15 mg PO BID tab 06/05/17 mg (*)] oxyCODONE IR [Oxycodone Ir (*)] 5 - 10 mg PO Q3H PRN tab 06/05/17 Medical Decision Making - Diagnostics EKG Interpretation: EKG: Complete interpretation has been separately recorded in the [facility] archive. Summary impression: Right bundle-branch block Repeat EKG: Complete interpretation has been separately recorded in the [facility] archive. Summary impression: Right bundle-branch block Imaging Results: Imaging Impressions Chest X-Ray 10/28/18 22:19 Impression: No acute abnormality identified, or substantial change from 2014. CT chest abdomen pelvis with IV contrast demonstrates no evidence of aortic aneurysm, dissection, PE or mesenteric thromboembolic disease, interpreted by direct Radiology. He does have nodular hepatic surface suspicious for chronic liver disease/cirrhosis. Imaging: I viewed and interpreted images myself Differential Diagnosis: This is an 83-year-old man with history of hypertension, hyperlipidemia who presents from home with about 30 min of chest pain which began after urinating which is associated with shortness of breath, described as a tight sternal pain. Here, he is hypertensive, otherwise vital signs are normal. His physical exam is unremarkable. Initial EKG shows right bundle branch block with no sign of ischemia. Initial troponin is 0. Patient is given aspirin and nitroglycerin for his chest pain. Differential diagnosis includes ACS, aortic dissection, GERD, pulmonary embolism , pneumothorax. 11:30 p.m.- Patient had no relief of pain with aspirin. Nitroglycerin lowered his blood pressure is significantly. Morphine was ordered with mild improvement in his symptoms. Labs were unremarkable including troponin, BNP. Chest x-ray was normal. Cause of his pain has not yet been elucidated though cannot completely rule out ACS, dissection, perforated ulcer. Plan for CT chest abdomen pelvis to evaluate for dissection. Repeat EKG is ordered as the patient is now in an a regular tachycardic rhythm. 12:51 a.m.- Patient is reassessed he is much more comfortable after receiving GI cocktail. He has no further shortness of breath. CT scan relatively unremarkable showing no sign of aortic dissection. Repeat EKG is unremarkable. Given that his heart score is elevated, I believe he should be admitted for ACS rule out though his EKG and troponin testing is normal thus far. I have discussed the case with Dr. Thomas of the hospitalist service and we will admit the patient. - Data Points Laboratory Results: Laboratory Results 10/28/18 22:17 10/28/18 22:17 10/28/18 10/28/18 10/28/18 22:20 22:17 22:17 WBC RBC Hgb Hct MCV MCH MCHC RDW Plt Count MPV Neut % (Auto) Lymph % (Auto) Weld % (Auto) Eos % (Auto) Baso % (Auto) Nucleat RBC Rel Count Absolute Neuts (auto) Absolute Lymphs (auto) Absolute Monos (auto) Absolute Eos (auto) Absolute Basos (auto) Absolute Nucleated RBC Immature Gran % Immature Gran # D-Dimer 0.33 ug/mLFEU ug/mLFEU (0.00-0.50) Sodium 135 mEq/L mEq/L (135-145) Potassium 4.6 mEq/L mEq/L (3.5-5.2) Chloride 101 mEq/L mEq/L (97-110) Carbon Dioxide 20 mEq/l L mEq/l (22-31) Anion Gap 14 mEq/L mEq/L (6-14) BUN 23 mg/dL mg/dL (7-23) Creatinine 1.6 mg/dL H mg/dL (0.7-1.3) Estimated GFR 42 Glucose 101 mg/dL H mg/dL (70-100) Calcium 9.3 mg/dL mg/dL (8.5-10.4) Total Bilirubin Conjugated Bilirubin Unconjugated Bilirubin AST ALT Alkaline Phosphatase POC Troponin I 0.00 ng/mL ng/mL (0.00-0.08) NT-Pro-B Natriuret Pep 190 pg/mL pg/mL (0-450) Total Protein Albumin Lipase 10/28/18 10/28/18 22:17 22:12 WBC 7.87 10^3/uL 10^3/uL (3.80-9.50) RBC 3.74 10^6/uL L 10^6/uL (4.40-6.38) Hgb 12.6 g/dL L g/dL (13.7-17.5) Hct 35.9 % L % (40.0-51.0) MCV 96.0 fL fL (81.5-99.8) MCH 33.7 pg pg (27.9-34.1) MCHC 35.1 g/dL g/dL (32.4-36.7) RDW 11.9 % % (11.5-15.2) Plt Count 185 10^3/uL 10^3/uL (150-400) MPV 8.5 fL L fL (8.7-11.7) Neut % (Auto) 50.9 % % (39.3-74.2) Lymph % (Auto) 28.7 % % (15.0-45.0) Weld % (Auto) 10.3 % % (4.5-13.0) Eos % (Auto) 8.8 % H % (0.6-7.6) Baso % (Auto) 0.9 % % (0.3-1.7) Nucleat RBC Rel Count 0.0 % % (0.0-0.2) Absolute Neuts (auto) 4.01 10^3/uL 10^3/uL (1.70-6.50) Absolute Lymphs (auto) 2.26 10^3/uL 10^3/uL (1.00-3.00) Absolute Monos (auto) 0.81 10^3/uL H 10^3/uL (0.30-0.80) Absolute Eos (auto) 0.69 10^3/uL H 10^3/uL (0.03-0.40) Absolute Basos (auto) 0.07 10^3/uL 10^3/uL (0.02-0.10) Absolute Nucleated RBC 0.00 10^3/uL 10^3/uL (0-0.01) Immature Gran % 0.4 % % (0.0-1.1) Immature Gran # 0.03 10^3/uL 10^3/uL (0.00-0.10) D-Dimer Sodium Potassium Chloride Carbon Dioxide Anion Gap BUN Creatinine Estimated GFR Glucose Calcium Total Bilirubin 0.7 mg/dL mg/dL (0.1-1.4) Conjugated Bilirubin 0.6 mg/dL H mg/dL (0.0-0.5) Unconjugated Bilirubin 0.1 mg/dL mg/dL (0.0-1.1) AST 93 IU/L H IU/L (17-59) ALT 56 IU/L IU/L (21-72) Alkaline Phosphatase 70 IU/L IU/L (38-126) POC Troponin I NT-Pro-B Natriuret Pep Total Protein 7.2 g/dL g/dL (6.3-8.2) Albumin 4.4 g/dL g/dL (3.5-5.0) Lipase 452 IU/L H IU/L (23-300) Medications Given: Nitroglycerin (Nitrostat) 0.4 mg SL Q5M PRN PRN Reason: Chest Pain Last Admin: 10/28/18 22:52 Dose: 0.4 tab Discontinued Medications Al Hydroxide/Mg Hydroxide (Maalox Susp) 30 ml PO ONCE ONE Stop: 10/28/18 23:23 Last Admin: 10/28/18 23:37 Dose: 30 ml Aspirin (Aspirin) 324 mg PO EDNOW ONE Stop: 10/28/18 22:20 Last Admin: 10/28/18 22:23 Dose: 324 mg Hyoscyamine Sulfate (Levsin, Hyomax-Sl) 0.25 mg PO ONCE ONE Stop: 10/28/18 23:23 Last Admin: 10/28/18 23:36 Dose: 0.25 mg Sodium Chloride (Ns) 1,000 mls @ 0 mls/hr IV ONCE ONE PRN Reason: Wide Open Stop: 10/28/18 22:58 Last Admin: 10/28/18 23:01 Dose: 1,000 mls Lidocaine (Lidocaine 2% Viscous) 15 ml PO ONCE ONE Stop: 10/28/18 23:23 Last Admin: 10/28/18 23:37 Dose: 15 ml Morphine Sulfate (Morphine) 2 mg IVP EDNOW ONE Stop: 10/28/18 22:30 Last Admin: 10/28/18 23:07 Dose: 2 mg Point of Care Test Results: Chemistry 10/28/18 22:20 POC Troponin I 0.00 ng/mL ng/mL (0.00-0.08) Departure - Departure Disposition: [facility] Inpatient Acute Clinical Impression: Shortness of breath Chest pain Qualifiers: Chest pain type: unspecified Qualified Code(s): R07.9 - Chest pain, unspecified Condition: Fair Referrals: Vlad Martinez MD [Primary Care Provider] - As per Instructions
[2018-10-28] MEDS: NITROGLYCERIN 0.4 MG BTL SL PRN ×2 (22:42→22:52)
--- NOTE | 2018-10-28 22:50 | CPEKG ---
Test Reason : OPEN Blood Pressure : / mmHG Vent. Rate : 080 BPM Atrial Rate : 079 BPM P-R Int : 167 ms QRS Dur : 134 ms QT Int : 396 ms P-R-T Axes : 034 083 017 degrees QTc Int : 457 ms Sinus rhythm Right bundle branch block Confirmed by Enzo Lutz ([id number]) on 10/28/2018 10:49:18 PM Referred By: PHYSICIAN ED Confirmed By:Enzo Lutz
[2018-10-28] MEDS ORDERED: NS 1,000 ML IV ONE (22:57)
[2018-10-28] MEDS ORDERED: HYOSCYAMINE SULFATE 0.125 MG TAB PO ONE (23:22)
[2018-10-28] MEDS ORDERED: LIDOCAINE 2% VISCOUS 15 ML UDCUP PO ONE (23:22)
[2018-10-28] MEDS ORDERED: MAG HYDROX/AL HYDROX/SIMETH 30 ML UDCUP PO ONE (23:22)
[2018-10-28] MEDS ORDERED: IOPAMIDOL (ISOVUE 370) 100 ML BTL IV ONE (23:34)
[2018-10-29] MEDS ORDERED: ONDANSETRON DISINTEGRATING 4 MG TAB PO PRN (00:50)
[2018-10-29] MEDS ORDERED: ONDANSETRON 4 MG/2 ML VIAL IVP PRN (00:50)
[2018-10-29] MEDS ORDERED: ACETAMINOPHEN 325 MG TAB PO PRN (00:50)
[2018-10-29] MEDS ORDERED: NITROGLYCERIN 0.4 MG BTL SL PRN (00:54)
--- NOTE | 2018-10-29 01:22 | PDGENHP ---
History and Physical - Chief Complaint Chest pain - History of Present Illness 83 yo M w/ hx of HTN and CKD presents with chest pain. The patient ate dinner this evening and then developed central chest pain. The pain was moderate in intensity, described as heaviness, and associated with shortness of breath. The pain lasted several hours so he came in to the ED for evaluation. He tells me he had a similar pain episode 4-5 weeks ago that resolved on its own but no similar pain since. In the ED his pain subsided with the combination of nitroglycerin, morphine, and a GI cocktail. He has no prior CAD history, but his father did have history of an DE. He tells me he last had a stress test about 15 years ago that was normal. He is currently chest pain free. He is being admitted for further work-up. Case discussed with ED physician Dr. Cooper; records reviewed and summarized above. History Information - Allergies/Home Medication List Allergies/Adverse Reactions: ibuprofen Allergy (Severe, Verified 06/01/17 13:56) Unknown Home Medications: Finasteride [Proscar 5 MG (*)] 5 mg PO DAILY10 11/23/12 [Last Taken 06/02/17] Atorvastatin Calcium [Lipitor 10 mg (*)] 10 mg PO HS 08/09/13 [Last Taken ] Metoprolol Tartrate [Lopressor 25 mg (*)] 25 mg PO BID 08/09/13 [Last Taken 06/07 09:00] Flurbiprofen 50 mg PO DAILY 11/14/16 [Last Taken 06/01/17] amLODIPine BESYLATE [Norvasc 2.5 mg (*)] 2.5 mg PO DAILY 11/14/16 [Last Taken ] Acetamn/Diphenhydramine 500/25 [Tylenol PM (*)] 1 each PO HS 06/01/17 [Last Taken 06/01/17] Amitriptyline 2% Cream 1 deborah TP TID 06/03/17 [Last Taken Unknown] Cholecalciferol Vit D3 [Vitamin D3 2000 units tab (OTC)] 2,000 units PO DAILY [Last Taken Unknown] Cyanocobalamin [Vitamin B12 (*)] 1,000 mcg PO DAILY 06/03/17 [Last Taken Unknown ] Gabapentin [Neurontin 300 MG (*)] 300 mg PO TID 06/03/17 [Last Taken 06/02/17 09 :00] I have personally reviewed and updated: family history, medical history - Past Medical History Additional medical history: Chronic kidney disease stage 3 with baseline creatinine around 1.5. Hypertension. Hyperlipidemia. Osteoarthritis. Prostate cancer with cryotherapy. Right bundle branch block. Irritable bowel syndrome. Bilateral plantar surface neuropathy - Surgical History Additional surgical history: 11/19/2016 right total knee arthroplasty. Left total knee arthroplasty. Bilateral CEA - Family History Additional family history: father with DE in his 50s, no familial skin infections or dermatologic issues - Social History Smoking Status: Former smoker Additional social history: normally independent in his ADLs Review of Systems Review of Systems: ROS: 10pt was reviewed & negative except for what was stated in HPI & below Physical Exam Physical Exam: Temp Pulse Resp BP Pulse Ox 36.5 C 70 20 136/58 H 98 10/28/18 22:06 10/29/18 00:49 10/29/18 00:49 10/29/18 00:49 10/29/18 00:49 Constitutional: no apparent distress, not in pain Eyes: PERRL, EOMI Ears, Nose, Mouth, Throat: moist mucous membranes, no oral mucosal ulcers Cardiovascular: regular rate and rhythym, systolic murmur Respiratory: no respiratory distress, clear to auscultation Gastrointestinal: normoactive bowel sounds, soft, non-tender abdomen Skin: warm, normal color Musculoskeletal: full muscle strength, no muscle tenderness Neurologic: AAOx3, CN II-XII Intact Psychiatric: interacting appropriately, not anxious Lab Data & Imaging Review 10/28/18 22:17 10/28/18 22:17 WBC 7.87 10^3/uL (3.80-9.50) 10/28/18 22: RBC 3.74 10^6/uL (4.40-6.38) L 10/28/18 22:17 Hgb 12.6 g/dL (13.7-17.5) L 10/28/18 22:17 Hct 35.9 % (40.0-51.0) L 10/28/18 22: MCV 96.0 fL (81.5-99.8) 10/28/18 22: MCH 33.7 pg (27.9-34.1) 10/28/18 22:17 MCHC 35.1 g/dL (32.4-36.7) 10/28/18 22:17 RDW 11.9 % (11.5-15.2) 10/28/18 22:17 Plt Count 185 10^3/uL (150-400) 10/28/18 22:17 MPV 8.5 fL (8.7-11.7) L 10/28/18 22:17 Neut % (Auto) 50.9 % (39.3-74.2) 10/28/18 22:17 Lymph % (Auto) 28.7 % (15.0-45.0) 10/28/18 22:17 [place] % (Auto) 10.3 % (4.5-13.0) 10/28/18 22:17 Eos % (Auto) 8.8 % (0.6-7.6) H 10/28/18 22:17 Baso % (Auto) 0.9 % (0.3-1.7) 10/28/18 22:17 Nucleat RBC Rel Count 0.0 % (0.0-0.2) 10/28/18 22:17 Absolute Neuts (auto) 4.01 10^3/uL (1.70-6.50) 10/28/18 22:17 Absolute Lymphs (auto) 2.26 10^3/uL (1.00-3.00) 10/28/18 22:17 Absolute Monos (auto) 0.81 10^3/uL (0.30-0.80) H 10/28/18 22:17 Absolute Eos (auto) 0.69 10^3/uL (0.03-0.40) H 10/28/18 22:17 Absolute Basos (auto) 0.07 10^3/uL (0.02-0.10) 10/28/18 22:17 Absolute Nucleated RBC 0.00 10^3/uL (0-0.01) 10/28/18 22:17 Immature Gran % 0.4 % (0.0-1.1) 10/28/18 22:17 Immature Gran # 0.03 10^3/uL (0.00-0.10) 10/28/18 22:17 D-Dimer 0.33 ug/mLFEU (0.00-0.50) 10/28/18 22:17 Sodium 135 mEq/L (135-145) 10/28/18 22:17 Potassium 4.6 mEq/L (3.5-5.2) 10/28/18 22:17 Chloride 101 mEq/L (97-110) 10/28/18 22:17 Carbon Dioxide 20 mEq/l (22-31) L 10/28/18 22:17 Anion Gap 14 mEq/L (6-14) 10/28/18 22:17 BUN 23 mg/dL (7-23) 10/28/18 22:17 Creatinine 1.6 mg/dL (0.7-1.3) H 10/28/18 22:17 Estimated GFR 42 10/28/18 22:17 Glucose 101 mg/dL (70-100) H 10/28/18 22:17 Calcium 9.3 mg/dL (8.5-10.4) 10/28/18 22:17 Total Bilirubin 0.7 mg/dL (0.1-1.4) 10/28/18 22:12 Conjugated Bilirubin 0.6 mg/dL (0.0-0.5) H 10/28/18 22:12 Unconjugated Bilirubin 0.1 mg/dL (0.0-1.1) 10/28/18 22:12 AST 93 IU/L (17-59) H 10/28/18 22:12 ALT 56 IU/L (21-72) 10/28/18 22:12 Alkaline Phosphatase 70 IU/L (38-126) 10/28/18 22:12 POC Troponin I 0.00 ng/mL (0.00-0.08) 10/28/18 22:20 NT-Pro-B Natriuret Pep 190 pg/mL (0-450) 10/28/18 22:17 Total Protein 7.2 g/dL (6.3-8.2) 10/28/18 22:12 Albumin 4.4 g/dL (3.5-5.0) 10/28/18 22:12 Lipase 452 IU/L (23-300) H 10/28/18 22:12 Imaging Review: Imaging Impressions Chest X-Ray 10/28/18 22:19 Impression: No acute abnormality identified, or substantial change from 2014. Visualized and Interpreted EKG results: Yes EKG Interpretation: Positive for: right bundle branch block Assessment & Plan Assessment: 83 yo M w/ CKD and HTN presents with chest pain. Plan: 1. Chest pain - Possibly GI noting pain occurred after a meal, but pain was moderate, persistent for several hours, and associated with shortness of breath. Noting patient's age, family history, and HEART score of 6, cardiac risk stratification is reasonable. - Observe in PCU - Monitor on telemetry, trend cardiac enzymes - NTG/ECG PRN for chest pain - Lexiscan nuclear stress ordered noting patient does not think he can tolerate a treadmill 2. HTN - Continue home medications pending reconciliation 3. CKD - Serum creatinine near baseline. - Monitor BMP - Avoid nephrotoxic agents, renally dose medications Diet - NPO Code - Full Ppx - SQH Dispo - Admit under observation status
--- NOTE | 2018-10-29 04:39 | CPEKG ---
Test Reason : OPEN Blood Pressure : / mmHG Vent. Rate : 068 BPM Atrial Rate : 068 BPM P-R Int : 184 ms QRS Dur : 132 ms QT Int : 428 ms P-R-T Axes : 021 -43 027 degrees QTc Int : 456 ms Sinus rhythm Right bundle branch block Confirmed by Elissa Cooper ([id number]) on 10/29/2018 4:39:22 AM Referred By: Elissa Cooper Confirmed By:Elissa Cooper
[2018-10-29 07:42] LABS: PLATELET COUNT 168 10^3/uL (150-400)
[2018-10-29] MEDS: HEPARIN 5,000 UNIT/0.5 ML INJ SC SCH ×2 (08:25→15:02)
[2018-10-29] MEDS ORDERED: ENOXAPARIN 40 MG/0.4 ML SYR SC SCH (09:00)
[2018-10-29] MEDS ORDERED: REGADENOSON 0.4 MG/5 ML SYR IVP ONE (11:06)
[2018-10-29 13:08] VITALS: BP 153/68
--- NOTE | 2018-10-29 13:30 | PDCARST ---
CAR Stress Test Results Type of Stress Test: Lexiscan stress test Indication: cp Description of Procedure: After informed consent was obtained, pt was established to ECG, blood pressure, HR and oximetry monitoring. STRESS EKG AND HEMODYNAMIC DATA. Resting heart rate: 69 BPM. Resting ECG: SR, RBBB. Resting blood pressure: 128/62 mmHg. O2 saturation at rest: Peak heart rate: 77 BPM. Peak blood pressure: 130/64 mmHg. Arrhythmias: none. Symptoms : The patient experienced no typical symptoms of angina during stress or recovery. Stress/Infusion ECG: No change in rhythm with no significant ST/T wave changes. Stress/infusion O2 saturation: 98% Impression: Uneventful Lexiscan infusion. Conclusion: Await nuclear images.
--- NOTE | 2018-10-29 14:14 | ASMTLACE ---
LACE Length of stay for Answers: Less than 1 day current admission Acuity / Level of Answers: No Care: Did the patient have an inpatient admission? Comorbidities - select Answers: Moderate or severe liver all that apply or renal disease Other Notes: HTN; HLD # of Emergency department Answers: 1-2 visits in the last 6 months Score: 6 Date Signed: 10/29/2018 02:12 PM Electronically Signed By:Blessing Kumar RN
[2018-10-29] MEDS ORDERED: METOPROLOL TARTRATE 25 MG TAB PO SCH (21:00)
[2018-10-29] MEDS ORDERED: ACETAMN/DIPHENHYDRAMINE 500/25MG TAB PO SCH (21:00)
[2018-10-29] MEDS ORDERED: LOSARTAN POTASSIUM 50 MG TAB PO SCH (21:00)
--- NOTE | 2018-10-30 08:30 | PDDCSUM ---
Discharge Summary Discharge Summary: Discharge Date: 10/29/18 83 yo M w/ CKD and HTN who was admitted with chest pain. He was admitted into the PCU. His w/u was negative including negative troponin as well as negative nuclear stress test. At the time of discharge he no longer has chest pain nor is he short of breath. As his w/u was negative and he no longer has chest pain, he is being d/c to f/u with his pcp in 1-2 weeks DDx: 1. Chest pain - Possibly GI noting pain occurred after a meal, but pain was moderate, persistent for several hours, and associated with shortness of breath. Noting patient's age, family history, and HEART score of 6, cardiac risk stratification is reasonable. 2. HTN - Continue home medications pending reconciliation 3. CKD - Serum creatinine was at baseline. Exam: NAD AAOX3 RRR CTA B, NO EXP WHEEZE S/NT/ND NO EDEMA MEDS: SEE MED REC TOTAL TIME SPENT ON D/C IS 35 MINS
[2018-10-30] MEDS ORDERED: amLODIPine BESYLATE 5 MG TAB PO SCH (09:00)
[2018-10-30] MEDS ORDERED: FINASTERIDE 5 MG TAB PO SCH (09:00)
[2018-10-30] MEDS ORDERED: CHOLECALCIFEROL VIT D3 2,000 UNITS TAB/CAP PO SCH (09:00)
[2018-10-30] MEDS ORDERED: ATORVASTATIN CALCIUM 10 MG TAB PO SCH (09:00)
[2018-10-30] MEDS ORDERED: CYANO/VITAMIN B12 1000 MCG TAB PO SCH (09:00)
== END 2018-10-29 15:38 | disposition home or self-care (01) ==
LOC: INTOOBSV 10-29 00:50 → F2W 10-29 01:55
PROVIDERS: ADMIT Student in an Organized Health Care Education/Training Program; ATTEND Family Medicine
DX: R07.9 Chest pain, unspecified (principal); I12.9 Hypertensive chronic kidney disease with stage 1 through stage 4 chronic kidney disease, or unspecified chronic kidney disease; N18.9 Chronic kidney disease, unspecified; E78.5 Hyperlipidemia, unspecified; Z96.653 Presence of artificial knee joint, bilateral; E86.9 Volume depletion, unspecified
CPT/HCPCS: 71046; 71275; 74174; 78452; 93005; 93017; 96361; 96372; 96374; 99285; A9500; G0378; J1644; J2270; J2785; Q9967; 84484-ER